=== PATIENT | male | born 1995 | race Two or more races ===

== ENCOUNTER 2017-04-03 17:56 | Inpatient (IN) | payer MEDICAID ==
[~2017-04-03] VITALS: Ht 180.3 cm; Wt 77.1 kg
[~2017-04-03 17:56] MED LIST: CEPHALEXIN500 MG PO; NAPROXEN375 MG PO; NKM
[2017-04-03 19:07] LABS: BASOPHILS % (AUTO) 0.5 % (0.0-2.0); EOSINOPHILS % (AUTO) 0.2 % (0.0-3.0); LYMPHOCYTES % (AUTO) 7.4 % (20.0-45.0); MEAN CORPUSCULAR HEMOGLOBIN 31.5 PG (27.0-31.0); MEAN CORPUSCULAR HGB CONC 35.5 G/DL (32.0-36.0); MEAN CORPUSCULAR VOLUME 89 FL (80-99); MEAN PLATELET VOLUME 8.1 FL (6.5-10.1); PLATELET COUNT 176 K/UL (150-450); RED BLOOD COUNT 5.04 M/UL (4.70-6.10); RED CELL DISTRIBUTION WIDTH 10.8 % (11.6-14.8); WHITE BLOOD COUNT 17.2 K/UL (4.8-10.8)
[2017-04-03 19:10] LABS: APPEARANCE,URINE CLEAR; KETONES,URINE NEGATIVE (NEGATIVE); LEUKOCYTE ESTERASE ,URINE 1+ (NEGATIVE); NITRITE,URINE NEGATIVE (NEGATIVE); PH,URINE 7 (4.5-8.0); PROTEIN,URINE 1+ (NEGATIVE); UROBILINOGEN,URINE 4 MG/DL (0.0-1.0)
[2017-04-03 19:19] LABS: INR 1.1 (0.9-1.1)
[2017-04-03 19:21] LABS: ALANINE AMINOTRANSFERASE 15 U/L (3-41); ALBUMIN/GLOBULIN RATIO 1.5 (1.0-2.7); ANION GAP 10 (5-15); ASPARTATE AMINO TRANSFERASE 17 U/L (5-40); CALCIUM 9.3 mg/dL (8.6-10.2); CARBON DIOXIDE 28 mEQ/L (20-30); CHLORIDE 99 mEQ/L (98-107); CREATININE 0.9 mg/dL (0.7-1.2); GLOMERULAR FILTRATION RATE > 60 mL/min (>60); HEMOLYSIS 7; LIPASE 15 U/L (< 60); POTASSIUM 4.3 mEQ/L (3.4-4.9); SODIUM 137 mEQ/L (135-145); TOTAL PROTEIN 7.6 g/dL (6.6-8.7)
[2017-04-03 19:22] VITALS: BP 129/76
[2017-04-03 19:29] LABS: BACTERIA,URINE OCCASIONAL /HPF; MUCUS,URINE MANY /LPF (NONE/OCC); RBC,URINE 0-2 /HPF (0 - 0); SQUAMOUS EPITHELIAL CELL,UR OCCASIONAL /LPF (NONE/OCC); WBC,URINE 0-2 /HPF (0 - 0)
[2017-04-03 19:40] LABS: BILIRUBIN,DIRECT 0.3 mg/dL (0.1-0.3)
--- NOTE | 2017-04-03 21:20 | Emergency Room Report ---
History of Present Illness General Chief Complaint: Abdominal Pain Source: Patient (SOURAV SUERO) Present Illness HPI The patient is a 21-year-old male who denies any medical history presenting for abdominal pain. He states that he began to develop pain to the entire abdomen yesterday for no known reason. Described as an 8/10 dull ache. He states that this was then followed by nausea, vomiting, and subjective fever. Pain is worse with movement. He denies any known sick contacts recent travel. He denies any other symptoms including diarrhea, constipation, CP, SOB, rash (SOURAV SUERO) Allergies: Coded Allergies: No Known Allergies (Unverified , 07/17/12) Patient History Past Medical History: see triage record Pertinent Family History: none Reviewed Nursing Documentation: PMH: Agreed, PSxH: Agreed (SOURAV SUERO) Nursing Documentation-PMH Hx Cardiac Problems: No Hx Asthma: Yes - during childhood Hx Cancer: No Hx Gastrointestinal Problems: No Hx Neurological Problems: No (SOURAV SUERO) Review of Systems All Other Systems: negative except mentioned in HPI (SOURAV SUERO) Physical Exam Vital Signs Date Time Temp Pulse Resp B/P (MAP) Pulse Ox O2 Delivery O2 Flow Rate FiO2 04/03/17 18:05 98.4 77 20 129/76 99 Room Air Sp02 EP Interpretation: reviewed, normal General Appearance: alert, GCS 15, non-toxic, mild distress Head: normocephalic, atraumatic Eyes: bilateral eye normal inspection, bilateral eye PERRL ENT: hearing grossly normal, normal pharynx, no angioedema, normal voice Respiratory: chest non-tender, lungs clear, normal breath sounds, speaking full sentences Cardiovascular #1: regular rate, rhythm, no edema Gastrointestinal: normal bowel sounds, no mass, no guarding, rebound - RLQ, tenderness - diffuse. Primarily RLQ Rectal: deferred Musculoskeletal: back normal, gait/station normal, normal range of motion Neurologic: alert, oriented x3, responsive, motor strength/tone normal, sensory intact, speech normal Psychiatric: judgement/insight normal, memory normal, mood/affect normal, no suicidal/homicidal ideation Skin: normal color, no rash, warm/dry, well hydrated Lymphatic: no adenopathy (SOURAV SUERO) Medical Decision Making [place] Attestation Dr. Kwan is my supervising physician. Patient management was discussed with my supervising physician (SOURAV SUERO) Medicare Attestation Patient's care evaluated by myself as well do agree with the history examined findings patient's CAT scan does report acute appendicitis, phone call was made to Dr. robles from general surgery patient started on IV antibiotics and requires admission for further specialty care (DARRON KWAN D.O.) Diagnostic Impression: Primary Impression: Acute appendicitis Qualified Codes: K35.89 - Other acute appendicitis ER Course The patient is a 21-year-old male presenting for abdominal pain Differential diagnoses considered include but not limited to gastritis, pancreatitis, appendicitis, UTI, among others PE: afebrile. Mild distress Abd: TTP diffusely with localized TTP over the RLQ. Non distended. No guarding. Labs significant for leukocytosis of 17.1 CT abd/pelvis shows appendicitis Pt is given IV fluids, morphine, and zosyn. He is placed on NPO. Dr Kwan has spoken with Dr. Rivera for admission. Dr. Robles has arrived and has evaluated patient. He will be taking the patient to the OR for appendectomy. Laboratory Tests Test 04/03/17 18:07 04/03/17 18:50 Urine Color Brown Urine Appearance Clear Urine pH 7 (4.5-8.0) Urine Specific [place] 1.010 (1.005-1.035) Urine Protein 1+ (NEGATIVE) H Urine Glucose (UA) 1+ (NEGATIVE) H Urine Ketones Negative (NEGATIVE) Urine Occult Blood Negative (NEGATIVE) Urine Nitrite Negative (NEGATIVE) Urine Bilirubin Negative (NEGATIVE) Urine Urobilinogen 4 MG/DL (0.0-1.0) H Urine Leukocyte Esterase 1+ (NEGATIVE) H Urine RBC 0-2 /HPF (0 - 0) H Urine WBC 0-2 /HPF (0 - 0) Urine Squamous Epithelial Cells Occasional /LPF Urine Bacteria Occasional /HPF (NONE) Urine Mucus Many /LPF (NONE/OCC) H White Blood Count 17.2 K/UL (4.8-10.8) H Red Blood Count 5.04 M/UL (4.70-6.10) Hemoglobin 15.9 G/DL (14.2-18.0) Hematocrit 44.8 % (42.0-52.0) Mean Corpuscular Volume 89 FL (80-99) Mean Corpuscular Hemoglobin 31.5 PG (27.0-31.0) H Mean Corpuscular Hemoglobin Concent 35.5 G/DL (32.0-36.0) Red Cell Distribution Width 10.8 % (11.6-14.8) L Platelet Count 176 K/UL (150-450) Mean Platelet Volume 8.1 FL (6.5-10.1) Neutrophils (%) (Auto) 82.0 % (45.0-75.0) H Lymphocytes (%) (Auto) 7.4 % (20.0-45.0) L Monocytes (%) (Auto) 10.0 % (1.0-10.0) Eosinophils (%) (Auto) 0.2 % (0.0-3.0) Basophils (%) (Auto) 0.5 % (0.0-2.0) Prothrombin Time 12.0 SEC (9.30-11.50) H Prothrombin Time INR 1.1 (0.9-1.1) PTT 30 SEC (23-33) Sodium Level 137 mEQ/L (135-145) Potassium Level 4.3 mEQ/L (3.4-4.9) Chloride Level 99 mEQ/L (98-107) Carbon Dioxide Level 28 mEQ/L (20-30) Anion Gap 10 (5-15) Blood Urea Nitrogen 7 mg/dL (7-23) Creatinine 0.9 mg/dL (0.7-1.2) Estimate Glomerular Filtration Rate > 60 mL/min (>60) Glucose Level 139 mg/dL (74-106) H Calcium Level 9.3 mg/dL (8.6-10.2) Total Bilirubin 2.3 mg/dL (0.0-1.2) H Direct Bilirubin 0.3 mg/dL (0.1-0.3) Aspartate Amino Transferase (AST) 17 U/L (5-40) Alanine Aminotransferase (ALT) 15 U/L (3-41) Alkaline Phosphatase 80 U/L (40-129) Total Protein 7.6 g/dL (6.6-8.7) Albumin 4.6 g/dL (3.5-5.2) Globulin 3.0 g/dL Albumin/Globulin Ratio 1.5 (1.0-2.7) Lipase 15 U/L (< 60) Lab Results Impression leukocytosis (SOURAV SUERO) CT/MRI/US Diagnostic Results CT/MRI/US Diagnostic Results : Imaging Test Ordered: CT abd/pelvis Impression Acute appendicitis (SOURAV SUERO) Last Vital Signs Date Time Temp Pulse Resp B/P (MAP) Pulse Ox O2 Delivery O2 Flow Rate FiO2 04/03/17 19:22 98.4 64 20 129/76 99 Room Air Status: improved (SOURAV SUERO) Disposition: ADMITTED INPATIENT Condition: Stable SOURAV SUERO Apr 03, 2017 21:19 DARRON KWAN D.O. Apr 03, 2017 21:24
[2017-04-03] MEDS ORDERED: Morphine Sulfate 4mg/ml Inj IVP ONE (21:30)
[2017-04-03] MEDS ORDERED: Piperacillin/Tazobactam 3.375 GM in NS 110 ML IVPB ONE (21:30)
[2017-04-03] MEDS ORDERED: Zosyn 3.375gm inj ONE (21:31)
[2017-04-03 21:45] VITALS: BP 134/77
[2017-04-03] MEDS ORDERED: Bupivacaine 0.25% Inj 30ml INJ ONE (22:39)
[2017-04-03] MEDS ORDERED: Bupivacaine w/Epi 0.5% 30ml Vial INJ ONE (22:39)
--- NOTE | 2017-04-03 22:47 | Infectious Diseases Prog Note ---
Assessment/Plan Problems: (1) Acute appendicitis Assessment & Plan: will start zosyn empiric treatment pending culture results , needs surgical intervention, surgery is following (2) UTI (urinary tract infection) Assessment & Plan: already on zosyn , will send urine for culture (3) Sepsis Assessment & Plan: due to the above, continue zosyn , will send blood culture Subjective Allergies: Coded Allergies: No Known Allergies (Unverified , 07/17/12) Objective Vital Signs Last 24 Hour Vital Signs Date Time Temp Pulse Resp B/P (MAP) Pulse Ox O2 Delivery O2 Flow Rate FiO2 04/03/17 19:22 98.4 64 20 129/76 99 Room Air 04/03/17 18:05 98.4 77 20 129/76 99 Room Air Height (Feet): 5 Height (Inches): 11.00 Weight (Pounds): 170 Laboratory Tests Test 04/03/17 18:07 04/03/17 18:50 Urine Color Brown Urine Appearance Clear Urine pH 7 (4.5-8.0) Urine Specific [place] 1.010 (1.005-1.035) Urine Protein 1+ (NEGATIVE) H Urine Glucose (UA) 1+ (NEGATIVE) H Urine Ketones Negative (NEGATIVE) Urine Occult Blood Negative (NEGATIVE) Urine Nitrite Negative (NEGATIVE) Urine Bilirubin Negative (NEGATIVE) Urine Urobilinogen 4 MG/DL (0.0-1.0) H Urine Leukocyte Esterase 1+ (NEGATIVE) H Urine RBC 0-2 /HPF (0 - 0) H Urine WBC 0-2 /HPF (0 - 0) Urine Squamous Epithelial Cells Occasional /LPF Urine Bacteria Occasional /HPF (NONE) Urine Mucus Many /LPF (NONE/OCC) H White Blood Count 17.2 K/UL (4.8-10.8) H Red Blood Count 5.04 M/UL (4.70-6.10) Hemoglobin 15.9 G/DL (14.2-18.0) Hematocrit 44.8 % (42.0-52.0) Mean Corpuscular Volume 89 FL (80-99) Mean Corpuscular Hemoglobin 31.5 PG (27.0-31.0) H Mean Corpuscular Hemoglobin Concent 35.5 G/DL (32.0-36.0) Red Cell Distribution Width 10.8 % (11.6-14.8) L Platelet Count 176 K/UL (150-450) Mean Platelet Volume 8.1 FL (6.5-10.1) Neutrophils (%) (Auto) 82.0 % (45.0-75.0) H Lymphocytes (%) (Auto) 7.4 % (20.0-45.0) L Monocytes (%) (Auto) 10.0 % (1.0-10.0) Eosinophils (%) (Auto) 0.2 % (0.0-3.0) Basophils (%) (Auto) 0.5 % (0.0-2.0) Prothrombin Time 12.0 SEC (9.30-11.50) H Prothromb Time International Ratio 1.1 (0.9-1.1) Activated Partial Thromboplast Time 30 SEC (23-33) Sodium Level 137 mEQ/L (135-145) Potassium Level 4.3 mEQ/L (3.4-4.9) Chloride Level 99 mEQ/L (98-107) Carbon Dioxide Level 28 mEQ/L (20-30) Anion Gap 10 (5-15) Blood Urea Nitrogen 7 mg/dL (7-23) Creatinine 0.9 mg/dL (0.7-1.2) Estimat Glomerular Filtration Rate > 60 mL/min (>60) Glucose Level 139 mg/dL (74-106) H Calcium Level 9.3 mg/dL (8.6-10.2) Total Bilirubin 2.3 mg/dL (0.0-1.2) H Direct Bilirubin 0.3 mg/dL (0.1-0.3) Aspartate Amino Transf (AST/SGOT) 17 U/L (5-40) Alanine Aminotransferase (ALT/SGPT) 15 U/L (3-41) Alkaline Phosphatase 80 U/L (40-129) Total Protein 7.6 g/dL (6.6-8.7) Albumin 4.6 g/dL (3.5-5.2) Globulin 3.0 g/dL Albumin/Globulin Ratio 1.5 (1.0-2.7) Lipase 15 U/L (< 60) Gordy Mane M.D. Apr 03, 2017 22:47
--- NOTE | 2017-04-03 22:49 | Pre-Procedure Note/Attestation ---
Pre-Procedure Note/Attestation Complete Prior to Procedure Procedure Narrative: laparoscopic vs open appendectomy possible exploratory laparotomy Indications for Procedure Pre-Operative Diagnosis: acute appendicitis Attestation I attest that I discussed the nature of the procedure; its benefits; risks and complications; and alternatives (and the risks and benefits of such alternatives ), prior to the procedure, with the patient (or the patient's legal volunteer patient representative). I attest that, if there was a reasonable possibility of needing a blood transfusion, the patient (or the patient's legal volunteer patient representative) was given the [facility] standardized written summary, pursuant to the Alejandro Konterra Blood Safety Act ([place] Health and Safety Code # 1645, as amended). I attest that I re-evaluated the patient just prior to the surgery and that there has been no change in the patient's H&P, except as documented below:none LEÓN HERNANDEZ Apr 03, 2017 22:49
[2017-04-03 22:50] VITALS: BP 132/76
[2017-04-03] MEDS ORDERED: LR 1000ml 1,000 ML IVLG SCH (22:51)
--- NOTE | 2017-04-03 22:51 | Anethesia Preoperative Eval ---
Anesthesia Pre-op PMH/ROS General Date of Evaluation: Apr 03, 2017 Time of Evaluation: 23:01 Anesthesiologist: Joanie ASA Score: ASA 1 Mallampati Score Class I : Soft palate, uvula, fauces, pillars visible Class II: Soft palate, uvula, fauces visible Class III: Soft palate, base of uvula visible Class IV: Only hard plate visible Mallampati Classification: Class I Surgeon: Facundo Diagnosis: ABD pain Surgical Procedure: Laparorscopic Appendectomy Anesthesia History: none Family History: no anesthesia problems Allergies: Coded Allergies: No Known Allergies (Unverified , 07/17/12) Medications: see eMAR Past Medical History Pulmonary: Reports: asthma Anesthesia Pre-op Phys. Exam Physician Exam Last Vital Signs Date Time Temp Pulse Resp B/P (MAP) Pulse Ox O2 Delivery O2 Flow Rate FiO2 04/03/17 19:22 98.4 64 20 129/76 99 Room Air Constitutional: NAD Neurologic: CN 2-12 intact Cardiovascular: RRR Respiratory: CTA Gastrointestinal: S/NT/ND Airway Exam Mallampati Score: Class I MO: full ROM: full Teeth: intact Anesthesia Pre-op A/P Labs Hematology Test 04/03/17 18:50 White Blood Count 17.2 K/UL (4.8-10.8) H Red Blood Count 5.04 M/UL (4.70-6.10) Hemoglobin 15.9 G/DL (14.2-18.0) Hematocrit 44.8 % (42.0-52.0) Mean Corpuscular Volume 89 FL (80-99) Mean Corpuscular Hemoglobin 31.5 PG (27.0-31.0) H Mean Corpuscular Hemoglobin Concent 35.5 G/DL (32.0-36.0) Red Cell Distribution Width 10.8 % (11.6-14.8) L Platelet Count 176 K/UL (150-450) Mean Platelet Volume 8.1 FL (6.5-10.1) Neutrophils (%) (Auto) 82.0 % (45.0-75.0) H Lymphocytes (%) (Auto) 7.4 % (20.0-45.0) L Monocytes (%) (Auto) 10.0 % (1.0-10.0) Eosinophils (%) (Auto) 0.2 % (0.0-3.0) Basophils (%) (Auto) 0.5 % (0.0-2.0) Coagulation Test 04/03/17 18:50 Prothrombin Time 12.0 SEC (9.30-11.50) H Prothromb Time International Ratio 1.1 (0.9-1.1) Activated Partial Thromboplast Time 30 SEC (23-33) Chemistry Test 04/03/17 18:50 Sodium Level 137 mEQ/L (135-145) Potassium Level 4.3 mEQ/L (3.4-4.9) Chloride Level 99 mEQ/L (98-107) Carbon Dioxide Level 28 mEQ/L (20-30) Anion Gap 10 (5-15) Blood Urea Nitrogen 7 mg/dL (7-23) Creatinine 0.9 mg/dL (0.7-1.2) Estimat Glomerular Filtration Rate > 60 mL/min (>60) Glucose Level 139 mg/dL (74-106) H Calcium Level 9.3 mg/dL (8.6-10.2) Total Bilirubin 2.3 mg/dL (0.0-1.2) H Direct Bilirubin 0.3 mg/dL (0.1-0.3) Aspartate Amino Transf (AST/SGOT) 17 U/L (5-40) Alanine Aminotransferase (ALT/SGPT) 15 U/L (3-41) Alkaline Phosphatase 80 U/L (40-129) Total Protein 7.6 g/dL (6.6-8.7) Albumin 4.6 g/dL (3.5-5.2) Globulin 3.0 g/dL Albumin/Globulin Ratio 1.5 (1.0-2.7) Lipase 15 U/L (< 60) Risk Assessment & Plan Assessment: ASA 1 Plan: GA, BIS, Glidescope Status Change Before Surgery: No Pre-Antibiotics Dru Gramns Ancef IV Given Within 1 Hr of Incision: No Time Given: 11:16 Sourav Nair MD Apr 03, 2017 22:51
[2017-04-03] MEDS ORDERED: Norco 7.5mg/325mg tab ORAL PRN (23:00)
[2017-04-03] MEDS ORDERED: Atropine Inj 1mg/10ml Syr IV PRN (23:00)
[2017-04-03] MEDS ORDERED: Metoclopramide 10mg/2ml Inj IVP PRN (23:00)
[2017-04-03] MEDS ORDERED: fentaNYL 100 mcg/2 mL IV PRN (23:00)
[2017-04-03] MEDS ORDERED: DiphenhydrAMINE 50mg/ml Inj IVP PRN (23:00)
[2017-04-03] MEDS ORDERED: Hydromorphone 0.5mg/0.5ml inj IVP PRN (23:00)
[2017-04-03] MEDS ORDERED: oxyCODONE HCL/Acetaminophen 5/325mg ORAL PRN (23:00)
[2017-04-03] MEDS ORDERED: Norco 5mg/325mg tab ORAL PRN (23:00)
[2017-04-03] MEDS ORDERED: Midazolam 2mg/2ml Inj IVP PRN (23:00)
[2017-04-03] MEDS ORDERED: LORazepam Inj 2mg/ml 1ml IV PRN (23:00)
[2017-04-03] MEDS ORDERED: Ketorolac 60mg Inj IV PRN (23:00)
[2017-04-03] MEDS ORDERED: Meperidine 25mg/0.5ml Inj (FOR RIGORS ONLY) IV PRN (23:00)
[2017-04-03] MEDS ORDERED: Ketorolac 30mg Inj IV PRN (23:00)
--- NOTE | 2017-04-03 23:40 | Immediate Post-Op Evaluation ---
Immediate Post-Op Evalulation Immediate Post-Op Evalulation Procedure: Laparoscopic Appendectomy Date of Evaluation: Apr 03, 2017 Time of Evaluation: 00:24 IV Fluids: 500 LR Blood Products: 0 Estimated Blood Loss: 10 Urinary Output: 0 Blood Pressure Systolic: 146 Blood Pressure Diastolic: 89 Pulse Rate: 89 Respiratory Rate: 16 O2 Sat by Pulse Oximetry: 100 Temperature (Fahrenheit): 98.9 Pain Score (1-10): 2 Nausea: No Vomiting: No Complications 0 Patient Status: awake, reacts, patent, extubated, none Hydration Status: adequate Dru Grams Ancef IV Given Within 1 Hr of Incision: Yes Time Given: 23:16 Sourav Nair MD Apr 03, 2017 23:40
--- NOTE | 2017-04-03 23:41 | 48 Hour Post Anesthesia Eval ---
Post Anesthesia Evaluation Procedure: Laparoscopic Appendectomy Date of Evaluation: Apr 03, 2017 Time of Evaluation: 02:41 Blood Pressure Systolic: 123 0: 74 Pulse Rate: 81 Respiratory Rate: 18 Temperature (Fahrenheit): 98.6 O2 Sat by Pulse Oximetry: 100 Airway: patent Nausea: No Vomiting: No Pain Intensity: 2 Hydration Status: adequate Cardiopulmonary Status: Stable Mental Status/LOC: patient returned to baseline Follow-up Care/Observations: 0 Post-Anesthesia Complications: 0 Follow-up care needed: N/A Sourav Nair MD Apr 03, 2017 23:41
[2017-04-04] VITALS (12 sets, daily range): BP systolic 109–146; BP diastolic 57–89
--- NOTE | 2017-04-04 00:05 | Brief Operative Note ---
Immediate Post Operative Note Operative Note Pre-op Diagnosis: acute appendicitis Procedure: laparroscopic appendecdtomy Post-op Diagnosis: same non perforated Surgeon: margaret Manager Wound Care: none Anesthesiologist: Joanie Anesthesia: general, local Specimen: yes Complications: none Condition: stable Fluids: per anesthesia Estimated Blood Loss: minimal Drains: none Implant(s) used?: No LEÓN HERNANDEZ Apr 04, 2017 00:05
[2017-04-04] MEDS ORDERED: HYDROmorphone 1mg/ml Carpuject IVP PRN (00:15)
[2017-04-04] MEDS ORDERED: Hydromorphone 0.5mg/0.5ml inj IVP PRN (00:15)
[2017-04-04] MEDS: LR 1000ml 1,000 ML IV SCH ×2 (01:21→15:00)
[2017-04-04] MEDS ORDERED: ceFAZolin sod 1 GM in D5W 55 ML IV SCH (06:00)
[2017-04-04] MEDS ORDERED: Zosyn 3.375gm inj ONE (06:06)
[2017-04-04 06:25] LABS: MEAN CORPUSCULAR HEMOGLOBIN 30.7 PG (27.0-31.0); MEAN CORPUSCULAR HGB CONC 34.1 G/DL (32.0-36.0); MEAN CORPUSCULAR VOLUME 90 FL (80-99); MEAN PLATELET VOLUME 8.1 FL (6.5-10.1); PLATELET COUNT 183 K/UL (150-450); RED BLOOD COUNT 5.14 M/UL (4.70-6.10); WHITE BLOOD COUNT 14.7 K/UL (4.8-10.8)
[2017-04-04 06:41] LABS: ANION GAP 12 (5-15); CALCIUM 8.9 mg/dL (8.6-10.2); CARBON DIOXIDE 27 mEQ/L (20-30); CHLORIDE 97 mEQ/L (98-107); CREATININE 1.1 mg/dL (0.7-1.2); GLOMERULAR FILTRATION RATE > 60 mL/min (>60); HEMOLYSIS 0; POTASSIUM 4.3 mEQ/L (3.4-4.9); SODIUM 136 mEQ/L (135-145)
[2017-04-04] MEDS: Piperacillin/Tazobactam 3.375 GM in NS 110 ML IVPB SCH ×3 (06:47→22:02)
--- NOTE | 2017-04-04 07:45 | History and Physical Report ---
DATE OF ADMISSION: 04/03/2017 ADMITTING DIAGNOSIS: Acute appendicitis. Present History: This 21-year-old gentleman, who was admitted to [facility] [place], noted abdominal pain since yesterday that has been increasing. It is focused in the right lower quadrant. Described as an ache. The patient has had nausea and vomiting. Low-grade fevers. No other contributing factors. No diarrhea or constipation. No shortness of breath. PAST MEDICAL HISTORY: Unremarkable. PAST SURGERY HISTORY: He had a repair of an injury to his wrists. MEDICATIONS: None regularly. Review Of Systems: Pulmonary: No history of asthma, bronchitis, emphysema, pneumonia, or tuberculosis. Cardiac: No history of chest pains, palpitations, irregular heart beat, murmurs, or angina. Gastrointestinal: No history of peptic ulcer disease, reflux esophagitis, colitis, hepatitis, jaundice, or pancreatitis. Genitourinary: No history of dysuria, hematuria, renal failure, or kidney stones. Musculoskeletal: Previous fracture of the left wrist. PHYSICAL EXAMINATION: General: Reveals well-developed, pleasant gentleman, in mild distress. Alert and cooperative. Vital Signs: His temperature is 98.4, pulse 77, respirations 20, and blood pressure 129/78. HEENT: Normocephalic. Pupils are round and reactive to light. There is no scleral icterus. His throat is clear. NECK: Supple. LUNGS: Clear bilaterally. HEART: Normal sinus rhythm. Abdomen: Soft. There is 2+ tenderness in the right lower quadrant. Focusing at McBurney's point with referred pain and mild rebound. GENITALIA: Normal male. Laboratory Data: Show white blood count of 17.2, hemoglobin of 15.9, hematocrit 44.8, and platelet count is 178. The chemistry, sodium is 137, potassium 4.2, chloride 99, bicarbonate 28, BUN is 7, creatinine 0.9, and glucose 139. Total bilirubin 2.3 and direct bilirubin is 0.3. AST of 17, ALT of 18, and alkaline phosphatase of 18. Lipase is 15. Coags, PT of 12.8, INR of 1.1, and PTT of 30. CT scan written by the radiologist shows appendicitis. Inflamed appendix measured about 1 cm. Inflammatory changes within the pelvis. No organized drainable collection. IMPRESSION: Acute appendicitis. Plan: The patient is admitted. He is given IV antibiotics. He will undergo laparoscopic appendectomy possible open. Procedures, risks, benefits, and complications including bleeding, infection, possible need to convert to an open procedure, and possible need for exploratory laparotomy were discussed in detail. The patient understands above and agrees to proceed. [place] M.D. DR: TOMMY JOB#: [id number] CC:
[2017-04-04] MEDS: Heparin 5000 units/ml inj SUBQ SCH ×2 (08:28→22:04)
--- NOTE | 2017-04-04 08:30 | Operative Note - Dictated ---
DATE OF OPERATION: 04/03/2017 SURGEON: [place] M.D. ANESTHESIOLOGIST: Sourav Nair M.D. PREOPERATIVE DIAGNOSIS: Acute appendicitis. POSTOPERATIVE DIAGNOSIS: Acute appendicitis. PROCEDURE: Laparoscopic appendectomy. Indications: The patient is a 21-year-old gentleman seen and requested by emergency room physician, who presents with a one-day history of nausea, vomiting, and abdominal pain, now localized in right lower quadrant. A CT scan confirmed the presence of acute appendicitis without evidence of perforation. The patient also had a white count of 18,000. Indications for surgery, risks, benefits, and complications include bleeding, infection, anesthetic complications, possible need to convert to an open procedure, possible need for exploratory laparotomy and wider resection were discussed in detail. The patient understands and agrees to proceed. Operative Findings: The patient had acute and obviously inflamed appendix. There was a fair amount of murky fluid in the right gutter, but there did not appear to be any actual perforation of the appendix per se, removed in the following manner. The liver, gallbladder, stomach, small bowel, and colon were grossly normal. Procedure In Detail: The patient was identified in the preoperative holding area, brought into the operating room just under general anesthesia and endotracheal intubation. The Perez catheter was placed. His abdomen was shaved and prepped with ChloraPrep and draped in usual sterile manner. Time-out performed confirming the patient's position, procedure, anesthesia, antibiotic, and allergy status. An infraumbilical incision was made through which we passed a Veress needle, checked with irrigation, aspiration, water drip test, connected to a CO2 insufflator, inflated to 15 mmHg taking 4 liters to achieve this. The Veress needle was removed. The aperture was enlarged. A 5 mm trocar was placed in the abdominal cavity through which we passed a 30-degree laparoscope. The area immediately subjacent carefully was examined to make sure there was no other inadvertent bowel or blood vessel injury, none seen. The entire abdomen was cruz-scoped with the above-noted findings. Under laparoscopic vision, a second 5 mm trocar was placed in the right upper quadrant and a 10 x 12 mm trocar was placed in the suprapubic position under laparoscopic vision. The cecum was carefully mobilized. The White line of [place] was carefully divided and the cecum reflected medially. The appendix was identified and grasped with a grasper, careful dissection down to the base was created in the mesoappendix. MARCO A anastomosis was passed across the mesoappendix and fired. Another stapler was then passed across the base of the appendix at the junction with the cecum and fired. The specimen was then placed into Endopouch bag and delivered through the suprapubic incision and sent to pathology for examination. At this point, the right lower quadrant was copiously irrigated with warm normal saline and carefully examined to make sure there is no bleeding acutely stabilized, checked. There is no evidence of any bleeding whatsoever. The scope was placed in the upper trocar and the abdomen was once again cruz-scoped to make sure there is no inadvertent bowel or blood vessel injury, none was seen. The trocars were removed under laparoscopic vision. Pneumoperitoneum released. The suprapubic incision was closed with 0 Vicryl on the fascia and all skin incisions closed with 4-0 Vicryl reinforced with Steri-Strips and dry sterile gauze dressing. Blood loss at the time of procedure was less than 2 mL. The patient tolerated the procedure well. [place] M.D. DR: TOMMY JOB#: [id number] CC:
--- NOTE | 2017-04-04 08:30 | Consultation ---
History of Present Illness General Date patient seen: Apr 04, 2017 Chief Complaint: Abdominal Pain Present Illness Allergies: Coded Allergies: No Known Allergies (Unverified , 07/17/12) Medication History Scheduled Cephalexin* (Keflex*), 500 MG PO Q6H Naproxen* (Naprosyn*), 375 MG PO BID No Known Medications* (NKM - No Known Medications*), 0 ., (Reported) Patient History Healthcare decision maker Resuscitation status Full Code Advanced Directive on File No Physical Exam Last 24 Hour Vital Signs Date Time Temp Pulse Resp B/P (MAP) Pulse Ox O2 Delivery O2 Flow Rate FiO2 04/04/17 04:00 98.4 75 16 109/66 100 Nasal Cannula 2.0 04/04/17 02:15 99.7 86 18 124/68 98 Nasal Cannula 2.0 04/04/17 01:30 99.2 04/04/17 01:15 100.6 90 18 125/69 98 Nasal Cannula 2.0 04/04/17 00:55 99.7 82 25 133/70 100 Nasal Cannula 3.0 04/04/17 00:50 81 20 131/72 100 Nasal Cannula 3.0 04/04/17 00:40 85 24 134/72 100 Nasal Cannula 3.0 04/04/17 00:30 81 16 137/75 100 Simple Mask 6.0 04/04/17 00:23 82 25 142/76 100 Simple Mask 6.0 04/04/17 00:18 82 27 144/77 100 Simple Mask 6.0 04/04/17 00:14 81 18 100 04/04/17 00:13 100.7 87 34 146/89 98 Simple Mask 6.0 04/04/17 00:13 89 16 100 04/03/17 22:55 98.4 70 18 132/76 99 Room Air 04/03/17 22:50 98.4 70 18 132/76 99 Room Air 04/03/17 21:45 98.4 66 18 134/77 99 Room Air 04/03/17 19:22 98.4 64 20 129/76 99 Room Air 04/03/17 18:05 98.4 77 20 129/76 99 Room Air Laboratory Tests Test 04/03/17 18:07 04/03/17 18:50 04/04/17 05:35 Urine Color Brown Urine Appearance Clear Urine pH 7 (4.5-8.0) Urine Specific [place] 1.010 (1.005-1.035) Urine Protein 1+ (NEGATIVE) H Urine Glucose (UA) 1+ (NEGATIVE) H Urine Ketones Negative (NEGATIVE) Urine Occult Blood Negative (NEGATIVE) Urine Nitrite Negative (NEGATIVE) Urine Bilirubin Negative (NEGATIVE) Urine Urobilinogen 4 MG/DL (0.0-1.0) H Urine Leukocyte Esterase 1+ (NEGATIVE) H Urine RBC 0-2 /HPF (0 - 0) H Urine WBC 0-2 /HPF (0 - 0) Urine Squamous Epithelial Cells Occasional /LPF Urine Bacteria Occasional /HPF (NONE) Urine Mucus Many /LPF (NONE/OCC) H White Blood Count 17.2 K/UL (4.8-10.8) H 14.7 K/UL (4.8-10.8) H Red Blood Count 5.04 M/UL (4.70-6.10) 5.14 M/UL (4.70-6.10) Hemoglobin 15.9 G/DL (14.2-18.0) 15.8 G/DL (14.2-18.0) Hematocrit 44.8 % (42.0-52.0) 46.3 % (42.0-52.0) Mean Corpuscular Volume 89 FL (80-99) 90 FL (80-99) Mean Corpuscular Hemoglobin 31.5 PG (27.0-31.0) H 30.7 PG (27.0-31.0) Mean Corpuscular Hemoglobin Concent 35.5 G/DL (32.0-36.0) 34.1 G/DL (32.0-36.0) Red Cell Distribution Width 10.8 % (11.6-14.8) L 11.0 % (11.6-14.8) L Platelet Count 176 K/UL (150-450) 183 K/UL (150-450) Mean Platelet Volume 8.1 FL (6.5-10.1) 8.1 FL (6.5-10.1) Neutrophils (%) (Auto) 82.0 % (45.0-75.0) H % (45.0-75.0) Lymphocytes (%) (Auto) 7.4 % (20.0-45.0) L % (20.0-45.0) Monocytes (%) (Auto) 10.0 % (1.0-10.0) % (1.0-10.0) Eosinophils (%) (Auto) 0.2 % (0.0-3.0) % (0.0-3.0) Basophils (%) (Auto) 0.5 % (0.0-2.0) % (0.0-2.0) Prothrombin Time 12.0 SEC (9.30-11.50) H Prothromb Time International Ratio 1.1 (0.9-1.1) Activated Partial Thromboplast Time 30 SEC (23-33) Sodium Level 137 mEQ/L (135-145) 136 mEQ/L (135-145) Potassium Level 4.3 mEQ/L (3.4-4.9) 4.3 mEQ/L (3.4-4.9) Chloride Level 99 mEQ/L (98-107) 97 mEQ/L (98-107) L Carbon Dioxide Level 28 mEQ/L (20-30) 27 mEQ/L (20-30) Anion Gap 10 (5-15) 12 (5-15) Blood Urea Nitrogen 7 mg/dL (7-23) 9 mg/dL (7-23) Creatinine 0.9 mg/dL (0.7-1.2) 1.1 mg/dL (0.7-1.2) Estimat Glomerular Filtration Rate > 60 mL/min (>60) > 60 mL/min (>60) Glucose Level 139 mg/dL (74-106) H 167 mg/dL (74-106) H Calcium Level 9.3 mg/dL (8.6-10.2) 8.9 mg/dL (8.6-10.2) Total Bilirubin 2.3 mg/dL (0.0-1.2) H Direct Bilirubin 0.3 mg/dL (0.1-0.3) Aspartate Amino Transf (AST/SGOT) 17 U/L (5-40) Alanine Aminotransferase (ALT/SGPT) 15 U/L (3-41) Alkaline Phosphatase 80 U/L (40-129) Total Protein 7.6 g/dL (6.6-8.7) Albumin 4.6 g/dL (3.5-5.2) Globulin 3.0 g/dL Albumin/Globulin Ratio 1.5 (1.0-2.7) Lipase 15 U/L (< 60) Height (Feet): 5 Height (Inches): 11.00 Weight (Pounds): 170 Medications Current Medications Medications (Trade) Dose Ordered Sig/Edwina Route PRN Reason Start Time Stop Time Status Last Admin Dose Admin Cefazolin Sodium 1 gm/Dextrose 55 ml @ 110 mls/hr EVERY 8 HOURS IV 04/04/17 06:00 04/04/17 14:29 UNV Heparin Sodium (Porcine) (Heparin 5000 units/ml) 5,000 units EVERY 12 HOURS SUBQ 04/04/17 09:00 05/04/17 08:59 Hydromorphone HCl (Dilaudid) 0.5 mg Q3H PRN IVP Pain Score 1-3 04/04/17 00:15 04/11/17 00:14 Hydromorphone HCl (Dilaudid) 1 mg Q3H PRN IVP pain score 4-6 04/04/17 00:15 04/11/17 00:14 Hydromorphone HCl (Dilaudid) 2 mg Q3H PRN IVP pain score 7-10 04/04/17 00:15 04/11/17 00:14 Lactated Ringer's 1,000 ml @ 75 mls/hr [id number] IV 04/04/17 01:00 05/04/17 00:59 04/04/17 01:21 Ondansetron HCl (Zofran) 4 mg Q6H PRN IVP Nausea & Vomiting 04/04/17 00:15 05/04/17 00:14 Piperacillin Sod/ Tazobactam Sod 3.375 gm/Sodium Chloride 110 ml @ 220 mls/hr Q8HR IVPB 04/04/17 06:00 04/11/17 05:59 04/04/17 06:47 Assessment/Plan Assessment/Plan (1) Abdominal pain (2) Appendicitis (3) S/p Appendectomy seen dictated BAYLEE COCHRAN Apr 04, 2017 08:30
--- NOTE | 2017-04-04 08:54 | General Progress Note ---
Progress Note Progress Note Looks and feels "great, voiding well, no BM but feels like it. Hungry. Tm 100.6, now 98 Lungs: clear Abdomen: soft, dressings dry, no bleeding. Peristalsis present. Impression: s/l lap appendectomy, stable Will give full liquids, soft in am if all OK. Home tomorrow from surgical standpoint if all is well. ANNETTA SIMMONS Apr 04, 2017 08:54
--- NOTE | 2017-04-04 09:10 | Diagnostic Imaging Report ---
Clinical Indication: Severe abdominal pain with nausea and vomiting Technique: No oral contrast utilized, per emergency room physician request IV administration nonionic contrast. Venous phase spiral acquisition obtained through the abdomen and pelvis. Multiplanar reconstructions were generated. Total dose length product 790 mGycm. CTDIvol(s) 15 mGy. Dose reduction achieved using automated exposure control Comparison: None Findings: The appendix is dilated, contains multiple appendicoliths. There is surrounding inflammation of the periappendiceal fat. Small amount of fluid is seen within the pelvis. Adjacent small bowel loops are mildly dilated and fluid-filled. No evidence of diverticulosis or diverticulitis. No free intraperitoneal air. The distal esophagus, stomach, duodenum are unremarkable. The liver, gallbladder, bile ducts, pancreas, spleen, adrenals, kidneys are unremarkable. No pelvic mass or adenopathy demonstrated. The included lung bases are clear. The bones are unremarkable. Impression: Findings are compatible with acute appendicitis. Small amount free pelvic fluid, presumably related to such Mildly dilated fluid-filled distal ileum, probably focal ileus secondary to the above This agrees with the preliminary interpretation provided overnight by [facility] teleradiology service. The CT scanner at [facility] is accredited by the [employer] and the scans are performed using protocols designed to limit radiation exposure to as low as reasonably achievable to attain images of sufficient resolution adequate for diagnostic evaluation.
[2017-04-04] MEDS: Norco 10mg/325mg tab ORAL PRN (15:51)
[2017-04-04] MEDS: HYDROmorphone 1mg/ml Carpuject IVP PRN ×2 (16:52→22:08)
--- NOTE | 2017-04-04 18:10 | Infectious Diseases Prog Note ---
Assessment/Plan Problems: (1) Acute appendicitis Assessment & Plan: continue zosyn empiric treatment pending culture results , had surgical intervention, surgery is following (2) UTI (urinary tract infection) Assessment & Plan: already on zosyn , will send urine for culture (3) Sepsis Assessment & Plan: due to the above, continue zosyn , will send blood culture Subjective Constitutional: Reports: no symptoms HEENT: Reports: no symptoms Respiratory: Reports: no symptoms Breasts: Reports: no symptoms Cardiovascular: Reports: no symptoms Gastrointestinal/Abdominal: Reports: nausea, constipation, bloating Genitourinary: Reports: no symptoms Neurologic: Reports: no symptoms Psychiatric: Reports: no symptoms Skin: Reports: no symptoms Endocrine: Reports: no symptoms Allergies: Coded Allergies: No Known Allergies (Unverified , 07/17/12) Objective Vital Signs Last 24 Hour Vital Signs Date Time Temp Pulse Resp B/P (MAP) Pulse Ox O2 Delivery O2 Flow Rate FiO2 04/04/17 11:51 98.1 72 18 117/57 98 Nasal Cannula 2.0 04/04/17 04:00 98.4 75 16 109/66 100 Nasal Cannula 2.0 04/04/17 02:15 99.7 86 18 124/68 98 Nasal Cannula 2.0 04/04/17 01:30 99.2 04/04/17 01:15 100.6 90 18 125/69 98 Nasal Cannula 2.0 04/04/17 00:55 99.7 82 25 133/70 100 Nasal Cannula 3.0 04/04/17 00:50 81 20 131/72 100 Nasal Cannula 3.0 04/04/17 00:40 85 24 134/72 100 Nasal Cannula 3.0 04/04/17 00:30 81 16 137/75 100 Simple Mask 6.0 04/04/17 00:23 82 25 142/76 100 Simple Mask 6.0 04/04/17 00:18 82 27 144/77 100 Simple Mask 6.0 04/04/17 00:14 81 18 100 04/04/17 00:13 100.7 87 34 146/89 98 Simple Mask 6.0 04/04/17 00:13 89 16 100 04/03/17 22:55 98.4 70 18 132/76 99 Room Air 04/03/17 22:50 98.4 70 18 132/76 99 Room Air 04/03/17 21:45 98.4 66 18 134/77 99 Room Air 04/03/17 19:22 98.4 64 20 129/76 99 Room Air Height (Feet): 5 Height (Inches): 11.00 Weight (Pounds): 170 General Appearance: WD/WN, no acute distress HEENT: normocephalic, atraumatic, anicteric, mucous membranes moist, PERRL Respiratory/Chest: chest wall non-tender, lungs clear, normal breath sounds, no respiratory distress, no accessory muscle use, decreased breath sounds Cardiovascular: normal peripheral pulses, normal rate, regular rhythm, no gallop/murmur, no JVD Abdomen: non distended, no mass, no scars, absent bowel sounds, distended, tender Extremities: no cyanosis, no clubbing Skin: no rash, no lesions, no ulcers Laboratory Tests Test 04/03/17 18:50 04/04/17 05:35 White Blood Count 17.2 K/UL (4.8-10.8) H 14.7 K/UL (4.8-10.8) H Red Blood Count 5.04 M/UL (4.70-6.10) 5.14 M/UL (4.70-6.10) Hemoglobin 15.9 G/DL (14.2-18.0) 15.8 G/DL (14.2-18.0) Hematocrit 44.8 % (42.0-52.0) 46.3 % (42.0-52.0) Mean Corpuscular Volume 89 FL (80-99) 90 FL (80-99) Mean Corpuscular Hemoglobin 31.5 PG (27.0-31.0) H 30.7 PG (27.0-31.0) Mean Corpuscular Hemoglobin Concent 35.5 G/DL (32.0-36.0) 34.1 G/DL (32.0-36.0) Red Cell Distribution Width 10.8 % (11.6-14.8) L 11.0 % (11.6-14.8) L Platelet Count 176 K/UL (150-450) 183 K/UL (150-450) Mean Platelet Volume 8.1 FL (6.5-10.1) 8.1 FL (6.5-10.1) Neutrophils (%) (Auto) 82.0 % (45.0-75.0) H % (45.0-75.0) Lymphocytes (%) (Auto) 7.4 % (20.0-45.0) L % (20.0-45.0) Monocytes (%) (Auto) 10.0 % (1.0-10.0) % (1.0-10.0) Eosinophils (%) (Auto) 0.2 % (0.0-3.0) % (0.0-3.0) Basophils (%) (Auto) 0.5 % (0.0-2.0) % (0.0-2.0) Prothrombin Time 12.0 SEC (9.30-11.50) H Prothromb Time International Ratio 1.1 (0.9-1.1) Activated Partial Thromboplast Time 30 SEC (23-33) Sodium Level 137 mEQ/L (135-145) 136 mEQ/L (135-145) Potassium Level 4.3 mEQ/L (3.4-4.9) 4.3 mEQ/L (3.4-4.9) Chloride Level 99 mEQ/L (98-107) 97 mEQ/L (98-107) L Carbon Dioxide Level 28 mEQ/L (20-30) 27 mEQ/L (20-30) Anion Gap 10 (5-15) 12 (5-15) Blood Urea Nitrogen 7 mg/dL (7-23) 9 mg/dL (7-23) Creatinine 0.9 mg/dL (0.7-1.2) 1.1 mg/dL (0.7-1.2) Estimat Glomerular Filtration Rate > 60 mL/min (>60) > 60 mL/min (>60) Glucose Level 139 mg/dL (74-106) H 167 mg/dL (74-106) H Calcium Level 9.3 mg/dL (8.6-10.2) 8.9 mg/dL (8.6-10.2) Total Bilirubin 2.3 mg/dL (0.0-1.2) H Direct Bilirubin 0.3 mg/dL (0.1-0.3) Aspartate Amino Transf (AST/SGOT) 17 U/L (5-40) Alanine Aminotransferase (ALT/SGPT) 15 U/L (3-41) Alkaline Phosphatase 80 U/L (40-129) Total Protein 7.6 g/dL (6.6-8.7) Albumin 4.6 g/dL (3.5-5.2) Globulin 3.0 g/dL Albumin/Globulin Ratio 1.5 (1.0-2.7) Lipase 15 U/L (< 60) Current Medications Medications (Trade) Dose Ordered Sig/Edwina Route PRN Reason Start Time Stop Time Status Last Admin Dose Admin Acetaminophen/ Hydrocodone Bitart ([place] 10/325) 1 ea Q4H PRN ORAL moderate Pain 04/04/17 08:30 04/11/17 08:29 04/04/17 15:51 Heparin Sodium (Porcine) (Heparin 5000 units/ml) 5,000 units EVERY 12 HOURS SUBQ 04/04/17 09:00 05/04/17 08:59 04/04/17 08:28 Hydromorphone HCl (Dilaudid) 1 mg Q3H PRN IVP severe pain 04/04/17 09:15 04/11/17 09:14 04/04/17 16:52 Lactated Ringer's 1,000 ml @ 75 mls/hr [id number] IV 04/04/17 01:00 05/04/17 00:59 04/04/17 15:00 Ondansetron HCl (Zofran) 4 mg Q6H PRN IVP Nausea & Vomiting 04/04/17 00:15 05/04/17 00:14 Piperacillin Sod/ Tazobactam Sod 3.375 gm/Sodium Chloride 110 ml @ 27.5 mls/hr Q8HR IVPB 04/04/17 22:00 04/11/17 05:59 Gordy Mane M.D. Apr 04, 2017 18:10
[2017-04-04] MEDS ORDERED: D5 1/2NS 1000ml IV ONE (18:37)
[2017-04-04] MEDS ORDERED: Tubing IV Secondary IV ONE (18:37)
[2017-04-05] VITALS: BP 123/62
--- NOTE | 2017-04-05 02:15 | Consultation ---
DATE OF CONSULTATION: INFECTIOUS DISEASES CONSULTATION CONSULTING PHYSICIAN: Gordy Mane M.D. REQUESTING PHYSICIAN: Radha Marquez M.D. Reason For Consultation: Acute appendicitis with sepsis and fever, recommendation for antibiotics therapy. History Of Present Illness: The patient is a 21-year-old male with no significant past medical history except asthma, presented to [facility] emergency room with progressive abdominal pain, which started the day before. His pain was 10/10, dull deep ache in the periumbilical area, radiates to the right lower quadrant. His abdominal pain was associated with nausea, vomiting, and fever. His pain gets worse with movement. The patient had a CT scan of the abdomen. It showed evidence of acute appendicitis. So, he was admitted to the hospital for surgical treatment and I was consulted by the primary provider for antibiotics treatment and further management. PAST MEDICAL HISTORY: Significant for asthma. PAST SURGICAL HISTORY: Negative. Medications: He is on Zosyn. For the rest of his medications, please refer to MAR. ALLERGIES: No known drug allergy. Social History: The patient is unemployed. Lives with family. Denied using any drugs, tobacco, or alcohol. FAMILY HISTORY: Not contributory. PHYSICAL EXAMINATION: Vital Signs: Temperature 98.4 degrees, pulse 70, respirations 18, blood pressure 132/76, and saturation 99% on room air. General: A young male, lying in bed, complaining of abdominal pain, not in distress. HEENT: Normocephalic and atraumatic. Pupils are reactive to light. Moist oral mucosa. No exudate or thrush. NECK: Supple. No lymphadenopathy. CARDIOVASCULAR: Regular rate and rhythm. LUNGS: Clear bilaterally. Abdomen: Soft, tender with rebound in the right lower quadrant. No stiffness. No organomegaly. EXTREMITIES: No edema or cyanosis. Laboratory Data: Labs showed white count of 17.2, hemoglobin of 15.9, and platelet count of 176,000. BUN of 7 and creatinine of 0.9. AST of 17 and ALT of 15. Urinalysis showed evidence of urinary tract infection with leukocyte esterase +1, WBC 0 to 2, and many mucus. Imaging: CT scan of the abdomen and pelvis showed acute appendicitis, small amount of free pelvic fluid related to such mildly dilated fluid-filled distal ileum, probably focal ileus secondary to the above. ASSESSMENT AND RECOMMENDATIONS: 1. Acute appendicitis. We will start the patient on Zosyn empiric treatment pending culture results. Need surgical intervention. Surgery is following for appendectomy. 2. Urinary tract infection, already on Zosyn. We will send urine for culture. 3. Sepsis with leukocytosis due to the above. Continue Zosyn. We will send blood culture to rule out bacteremia. Thank you for the consult. Gordy Mane M.D. DR: BRUNO JOB#: [id number] CC:
[2017-04-05 04:00] VITALS: BP 119/66
[2017-04-05] MEDS: HYDROmorphone 1mg/ml Carpuject IVP PRN ×5 (04:22→21:14)
[2017-04-05] MEDS: Piperacillin/Tazobactam 3.375 GM in NS 110 ML IVPB SCH ×3 (05:03→22:00)
[2017-04-05 08:27] VITALS: BP 121/73
[2017-04-05] MEDS: Heparin 5000 units/ml inj SUBQ SCH ×2 (08:33→21:12)
--- NOTE | 2017-04-05 09:00 | History and Physical Report ---
DATE OF ADMISSION: 04/03/2017 History Of Present Illness: The patient is admitted for acute appendicitis. The patient had emergent appendectomy by Dr. Loredo. The patient is admitted for post observation post laparotomy and appendectomy. The patient originally was complaining of abdominal pain, vomiting, and low-grade fever for 1 day that came all of a sudden, was admitted to the hospital for acute appendicitis. The patient denies chills, but did have low-grade fever. Abdominal pain and vomiting has improved dramatically post operation. PAST MEDICAL HISTORY: None. PAST SURGICAL HISTORY: Left thumb surgery. MEDICATIONS: Does not take any active medications. ALLERGIES: No known allergies. Social History: The patient smokes. Has a history of drug abuse. No history of alcohol abuse. FAMILY HISTORY: Noncontributory. Review Of Systems: HEENT: Denies headaches. Respiratory: Denies shortness of breath. Denies cough. Cardiovascular: Denies chest pain. Gastrointestinal: Does have vomiting and abdominal pain for 1 day that started suddenly yesterday. Extremities: Denies pain in the extremities. Central Nervous System: No change in vision or speech pattern. PHYSICAL EXAMINATION: Vital Signs: Temperature is 99.7 degrees, pulse is 82, and blood pressure is 132/70. HEENT: PERRLA. NECK: Supple. No lymphadenopathy. CHEST: Clear to auscultation. Gastrointestinal: Does have right lower quadrant tenderness. No rebound. Positive bowel sounds. Abdomen is soft. EXTREMITIES: No edema. Moves all 4 extremities. Neurologic: Sensory intact to light touch. Reflexes are equal on both sides. ASSESSMENT: Status post laparoscopic appendectomy. Plan: Dr. Dickerson, Dr. Loredo, , Dr. Strauss, and Dr. Ring were also consulted for the case for the dehydration and for the antibiotics as well as for the appendectomy as well as for pain control. Radha Marquez M.D. DR: DIGNA JOB#: [id number] CC:
--- NOTE | 2017-04-05 09:02 | Consultation ---
DATE OF CONSULTATION: 04/04/2017 PAIN MANAGEMENT CONSULTATION CONSULTING PHYSICIAN: Ameya Dickerson M.D. REFERRING PHYSICIAN: Radha Marquez M.D. PHYSICIAN STORE PROTECTION SPECIALIST: Brigitte Tan CHIEF COMPLAINT: Abdominal pain. History Of Present Illness: This is a 21-year-old male, who is being seen on the Med/Surg floor of [facility] for initial comprehensive pain management consultation. The patient reports that he had been having severe abdominal pain in the right lower quadrant, described the pain as an ache with nausea, vomiting, and low-grade fevers, admitted into the hospital, found to have acute appendicitis, status post laparoscopic appendectomy. At this time, the patient is in bed, in no acute distress. The pain has been stable on the current medication of Dilaudid, which he was started at 1 to 2 mg IV every 3 hours as needed for [id number] pain and was given Dilaudid 1 mg as needed. We were consulted so that the patient would have adequate pain control while here in the hospital. PAST MEDICAL HISTORY: Denies. PAST SURGICAL HISTORY: Repair of injury of his left wrist. ALLERGIES: No known drug allergies. MEDICATIONS: Denies taking any medications daily. Social History: Denies smoking tobacco, drinking alcohol, or drug abuse. Review Of Systems: Denies rash, fever, chills, sweating, dizziness, drowsiness, blurred vision, sore throat, or change in weight. No shortness of breath or chest pain. No nausea, vomiting, diarrhea, or blood in the stool or urine. No bowel or bladder incontinence. No dysuria. He is complaining of abdominal pain. PHYSICAL EXAMINATION: GENERAL: Alert, awake, and oriented x3. Vital Signs: Blood pressure 109/66, heart rate 75, oxygen saturation 01:46, respiratory rate 16, and temperature 01:47 degrees Fahrenheit. HEENT: PERRLA. Neck: Range of motion is full in all directions. No tenderness to paracervical muscles. No adenopathy. LUNGS: Clear. HEART: Regular. ABDOMEN: Tenderness to palpation with bandage noted. Back: Range of motion is decreased in flexion and extension. No tenderness to paraspinal muscles. No tenderness to trapezius or rhomboid muscles. Extremities: Upper extremity range of motion is full in all directions. Motor is intact. No cyanosis. No clubbing. No edema. Sensory is intact. Reflexes are not obtainable. No adenopathy. Lower extremity motion is full in all directions. Motor is intact. No cyanosis. No clubbing. No edema. Sensory is intact. Reflexes are not obtainable. No adenopathy. Assessment And Plan: This is a 21-year-old male with acute appendicitis, abdominal pain, status post laparoscopic appendectomy. The patient will be continued on 02:24 Dilaudid 1 mg IV every 3 hours as needed for severe pain, [place] 10/325 mg 1 tablet every 4 hours as needed for moderate pain. The patient was discussed with Dr. Dickerson and Dr. Dickerson concurred. We will follow the patient. Thank you very much for the courtesy of this consultation. Ameya Dickerson M.D. RUBEN Tan DR: MARY JOB#: [id number] CC:
--- NOTE | 2017-04-05 09:15 | Consultation ---
DATE OF CONSULTATION: 04/04/2017 GASTROLOGY CONSULTATION CONSULTING PHYSICIAN: Ad Ring M.D. Chief Complaint: I was asked to see this patient by Dr. Radha Marquez for evaluation of appendicitis. History Of Present Illness: The patient is a pleasant 21-year-old man who was admitted yesterday to the hospital with abdominal pain. His evaluation was consistent with acute appendicitis and underwent laparoscopic appendectomy. The patient is doing better today. Although, he seems to have some abdominal pain especially around his wounds. He has had no nausea or vomiting. PAST MEDICAL HISTORY: Otherwise negative. PAST SURGICAL HISTORY: Status post wrist injury repair. SOCIAL HISTORY: The patient does not smoke or drink. FAMILY HISTORY: Noncontributory. REVIEW OF SYSTEMS: Otherwise negative. PHYSICAL EXAMINATION: General: The patient is a pleasant man, seen in his room with family at bedside. HEENT: Normocephalic and atraumatic. Sclerae anicteric. Oropharynx clear. NECK: Supple. CHEST: Clear to auscultation. CARDIOVASCULAR: Regular rhythm and rate. ABDOMEN: Soft with good wounds. EXTREMITIES: Revealed no edema. LABORATORY DATA: Noted. Assessment: This patient has had an episode of acute appendicitis, which has been treated with laparoscopic appendectomy. The patient wounds will be followed and his diet and will be advanced. Early discharge planning will be considered once the patient's bowel function has returned. Recommendations: Per above discussion and per orders written in the chart. Thank you for asking me to participate in the care of this patient. Ad Ring M.D. DR: JAIME JOB#: [id number] CC: WILMER
--- NOTE | 2017-04-05 09:44 | General Progress Note ---
Progress Note Progress Note Surgery: patient seen and examined at bedside. doing well. pain slowly improving. no n /v. minimal flatus. no BM. minimal ambulation Febrile T max 101.2 this AM No AM labs Abdomen soft, distended, incisions, c/d/i, incisional tenderness. -fever likely from atelectasis. he needs to be ambulatory and using Incentive spirometry -AM CBC ordered to evaluate trend of leukocytosis -diet as tolerated -likely discharge tomorrow Hans Hess Apr 05, 2017 09:44
--- NOTE | 2017-04-05 09:54 | General Progress Note ---
Assessment/Plan Assessment/Plan Assessment - Acute appy - s/p appendectomy Recommendations - post op care - OOB Subjective Allergies: Coded Allergies: No Known Allergies (Unverified , 07/17/12) Subjective c/o abd discomfort no gas or BM yet Objective Last 24 Hour Vital Signs Date Time Temp Pulse Resp B/P (MAP) Pulse Ox O2 Delivery O2 Flow Rate FiO2 04/05/17 08:58 101.2 04/05/17 08:27 101.2 85 20 121/73 95 Room Air 04/05/17 04:00 98.6 76 18 119/66 99 Nasal Cannula 2.0 04/05/17 00:00 97.6 66 18 123/62 100 Nasal Cannula 2.0 04/04/17 20:00 98.1 69 18 114/71 Nasal Cannula 2.0 04/04/17 11:51 98.1 72 18 117/57 98 Nasal Cannula 2.0 Intake and Output 04/05/17 04/06/17 19:00 07:00 Intake Total 340 ml Balance 340 ml Intake Oral 340 ml # Voids 1 Height (Feet): 5 Height (Inches): 11.00 Weight (Pounds): 170 Objective NAD CTA RRR soft mildly distended, wounds OK no edema non focal SALOME WEAVER Apr 05, 2017 09:54
[2017-04-05 11:27] VITALS: BP 133/76
[2017-04-05 15:57] VITALS: BP 118/65
--- NOTE | 2017-04-05 18:48 | Infectious Diseases Prog Note ---
Assessment/Plan Problems: (1) Acute appendicitis Assessment & Plan: on zosyn empiric treatment pending culture results , had surgical intervention, surgery is following (2) UTI (urinary tract infection) Assessment & Plan: already on zosyn , will send urine for culture (3) Sepsis Assessment & Plan: due to the above, continue zosyn , will send blood culture (4) Fever Assessment & Plan: rule out sepsis, will send blood culture and start vancomycin . Subjective Constitutional: Reports: no symptoms HEENT: Reports: no symptoms Respiratory: Reports: productive cough Breasts: Reports: no symptoms Cardiovascular: Reports: no symptoms Gastrointestinal/Abdominal: Reports: bloating Genitourinary: Reports: no symptoms Neurologic: Reports: no symptoms Psychiatric: Reports: no symptoms Skin: Reports: no symptoms Endocrine: Reports: no symptoms Hematologic: Reports: no symptoms Musculoskeletal: Reports: no symptoms Allergies: Coded Allergies: No Known Allergies (Unverified , 07/17/12) Objective Vital Signs Last 24 Hour Vital Signs Date Time Temp Pulse Resp B/P (MAP) Pulse Ox O2 Delivery O2 Flow Rate FiO2 04/05/17 17:48 101.0 04/05/17 17:08 101.0 04/05/17 15:57 100.2 83 20 118/65 95 Room Air 04/05/17 11:27 101.1 88 20 133/76 96 Room Air 04/05/17 08:27 101.2 85 20 121/73 95 Room Air 04/05/17 04:00 98.6 76 18 119/66 99 Nasal Cannula 2.0 04/05/17 00:00 97.6 66 18 123/62 100 Nasal Cannula 2.0 04/04/17 20:00 98.1 69 18 114/71 Nasal Cannula 2.0 Height (Feet): 5 Height (Inches): 11.00 Weight (Pounds): 170 General Appearance: WD/WN, no acute distress HEENT: normocephalic, atraumatic, anicteric, mucous membranes moist, PERRL Respiratory/Chest: chest wall non-tender, lungs clear, normal breath sounds, no respiratory distress, no accessory muscle use Cardiovascular: normal peripheral pulses, normal rate, regular rhythm, no gallop/murmur, no JVD Abdomen: normal bowel sounds, soft, non tender, no organomegaly, non distended , no mass, no scars Genitourinary: normal external genitalia Extremities: no cyanosis, no clubbing Skin: no rash, no lesions, no ulcers Neurologic/Psychiatric: alert, oriented x 3 Microbiology Date/Time Source Procedure Growth Status 04/04/17 05:40 Blood Blood Culture - Preliminary NO GROWTH AFTER 24 HOURS Resulted 04/04/17 05:35 Blood Blood Culture - Preliminary NO GROWTH AFTER 24 HOURS Resulted Current Medications Medications (Trade) Dose Ordered Sig/Edwina Route PRN Reason Start Time Stop Time Status Last Admin Dose Admin Acetaminophen (Tylenol) 650 mg Q4H PRN ORAL Mild Pain/Temp > 100.5 04/05/17 14:45 05/05/17 14:44 04/05/17 16:09 Acetaminophen/ Hydrocodone Bitart ([place] ) 1 ea Q4H PRN ORAL moderate Pain 04/04/17 08:30 04/11/17 08:29 04/04/17 15:51 Heparin Sodium (Porcine) (Heparin 5000 units/ml) 5,000 units EVERY 12 HOURS SUBQ 04/04/17 09:00 05/04/17 08:59 04/05/17 08:33 Hydromorphone HCl (Dilaudid) 1 mg Q3H PRN IVP severe pain 04/04/17 09:15 04/11/17 09:14 04/05/17 17:18 Ondansetron HCl (Zofran) 4 mg Q6H PRN IVP Nausea & Vomiting 04/04/17 00:15 05/04/17 00:14 Piperacillin Sod/ Tazobactam Sod 3.375 gm/Sodium Chloride 110 ml @ 27.5 mls/hr Q8HR IVPB 04/04/17 22:00 04/11/17 05:59 04/05/17 14:35 Gordy Mane M.D. Apr 05, 2017 18:48
[2017-04-05 20:00] VITALS: BP 114/63
[2017-04-05] MEDS ORDERED: Vancomycin 1.5 GM/D5W 250ML IVPB ONE (20:00)
--- NOTE | 2017-04-05 20:40 | General Progress Note ---
Assessment/Plan Problem List: (1) Acute appendicitis ICD Codes: K35.80 - Unspecified acute appendicitis SNOMED: 57607600 Qualifiers: Qualified Codes: K35.89 - Other acute appendicitis Status: stable Assessment/Plan s/p laproscopic appendectomy afebrile Subjective Gastrointestinal/Abdominal: Reports: abdominal pain Allergies: Coded Allergies: No Known Allergies (Unverified , 07/17/12) Objective Last 24 Hour Vital Signs Date Time Temp Pulse Resp B/P (MAP) Pulse Ox O2 Delivery O2 Flow Rate FiO2 04/05/17 19:00 98.8 04/05/17 17:48 101.0 04/05/17 17:08 101.0 04/05/17 15:57 100.2 83 20 118/65 95 Room Air 04/05/17 11:27 101.1 88 20 133/76 96 Room Air 04/05/17 08:27 101.2 85 20 121/73 95 Room Air 04/05/17 04:00 98.6 76 18 119/66 99 Nasal Cannula 2.0 04/05/17 00:00 97.6 66 18 123/62 100 Nasal Cannula 2.0 Intake and Output 04/05/17 04/06/17 19:00 07:00 Intake Total 730.0 ml Balance 730.0 ml Intake Oral 620 ml IV Total 110.0 ml # Voids 7 Height (Feet): 5 Height (Inches): 11.00 Weight (Pounds): 170 Respiratory/Chest: lungs clear Abdomen: tender Radha Marquez MD Apr 05, 2017 20:40
[2017-04-06] VITALS (7 sets, daily range): BP systolic 109–116; BP diastolic 60–75
[2017-04-06] MEDS: HYDROmorphone 1mg/ml Carpuject IVP PRN ×3 (02:41→22:51)
[2017-04-06] MEDS: Vancomycin 1gm/D5W 275ml IVPB SCH ×4 (04:56→11:49)
[2017-04-06] MEDS: Piperacillin/Tazobactam 3.375 GM in NS 110 ML IVPB SCH ×3 (06:25→22:00)
[2017-04-06 07:24] LABS: BASOPHILS % (AUTO) 0.6 % (0.0-2.0); EOSINOPHILS % (AUTO) 1.1 % (0.0-3.0); LYMPHOCYTES % (AUTO) 9.4 % (20.0-45.0); MEAN CORPUSCULAR HEMOGLOBIN 30.3 PG (27.0-31.0); MEAN CORPUSCULAR HGB CONC 33.8 G/DL (32.0-36.0); MEAN CORPUSCULAR VOLUME 90 FL (80-99); MEAN PLATELET VOLUME 8.5 FL (6.5-10.1); NEUTROPHILS % (AUTO) 79.9 % (45.0-75.0); PLATELET COUNT 167 K/UL (150-450); RED BLOOD COUNT 4.35 M/UL (4.70-6.10); RED CELL DISTRIBUTION WIDTH 10.7 % (11.6-14.8); WHITE BLOOD COUNT 11.2 K/UL (4.8-10.8)
[2017-04-06] MEDS: Heparin 5000 units/ml inj SUBQ SCH ×2 (08:10→20:36)
[2017-04-06] MEDS: Norco 10mg/325mg tab ORAL PRN (08:15)
[2017-04-06] MEDS: Docusate 100mg cap ORAL SCH ×2 (09:39→17:07)
[2017-04-06] MEDS ORDERED: Sennosides 8.6mg ORAL PRN (10:00)
[2017-04-06] MEDS ORDERED: Milk of Magnesia 30ml Ud ORAL PRN (10:00)
--- NOTE | 2017-04-06 10:41 | General Progress Note ---
Progress Note Progress Note po day 2 sp laparoscopic appendectomy doing well, lowe grade fevers yesterday, no afebrile. passing flatus no bm yet. ambulating in liz. Last 24 Hour Vital Signs Date Time Temp Pulse Resp B/P (MAP) Pulse Ox O2 Delivery O2 Flow Rate FiO2 04/06/17 09:14 99.0 04/06/17 08:00 98.8 79 19 114/67 97 Room Air 04/06/17 04:00 99.0 68 18 114/64 99 Room Air 04/06/17 00:00 99.3 79 18 116/74 99 Room Air 04/05/17 19:00 98.8 04/05/17 17:48 101.0 04/05/17 17:08 101.0 04/05/17 15:57 100.2 83 20 118/65 95 Room Air 04/05/17 11:27 101.1 88 20 133/76 96 Room Air lungs clear heart nsr abd soft wounds clean and dry surgically okay to dc home. will see in office next week [phone] fir appt LEÓN HERNANDEZ Apr 06, 2017 10:41
--- NOTE | 2017-04-06 15:23 | Diagnostic Imaging Report ---
Indication: POST-OP chest pain Technique: One view of the chest Comparison: none Findings: Lungs and pleural spaces are clear. Heart size is normal. Impression: No acute process
--- NOTE | 2017-04-06 15:26 | General Progress Note ---
Assessment/Plan Problem List: (1) Acute appendicitis ICD Codes: K35.80 - Unspecified acute appendicitis SNOMED: 56370863 Qualifiers: Qualified Codes: K35.89 - Other acute appendicitis Status: progressing Assessment/Plan s/p laproscopic appendectomy abdominal pain dc home once cleared by surgeon Subjective ROS Limited/Unobtainable: Yes Constitutional: Reports: no symptoms Allergies: Coded Allergies: No Known Allergies (Unverified , 07/17/12) Objective Last 24 Hour Vital Signs Date Time Temp Pulse Resp B/P (MAP) Pulse Ox O2 Delivery O2 Flow Rate FiO2 04/06/17 12:00 98.6 64 19 110/60 96 Room Air 04/06/17 09:14 99.0 04/06/17 08:00 98.8 79 19 114/67 97 Room Air 04/06/17 04:00 99.0 68 18 114/64 99 Room Air 04/06/17 00:00 99.3 79 18 116/74 99 Room Air 04/05/17 20:00 99.6 80 20 114/63 97 Room Air 04/05/17 19:00 98.8 04/05/17 17:48 101.0 04/05/17 17:08 101.0 04/05/17 15:57 100.2 83 20 118/65 95 Room Air Intake and Output 04/06/17 04/07/17 19:00 07:00 Intake Total 607.416 ml Balance 607.416 ml Intake Oral 240 ml IV Total 367.416 ml # Voids 2 Laboratory Tests 04/06/17 05:40: White Blood Count 11.2H, Red Blood Count 4.35L, Hemoglobin 13.2L, Hematocrit 39.0L, Mean Corpuscular Volume 90, Mean Corpuscular Hemoglobin 30.3, Mean Corpuscular Hemoglobin Concent 33.8, Red Cell Distribution Width 10.7L, Platelet Count 167, Mean Platelet Volume 8.5, Neutrophils (%) (Auto) 79.9H, Lymphocytes (%) (Auto) 9.4L, Monocytes (%) (Auto) 9.0, Eosinophils (%) (Auto) 1.1, Basophils (%) (Auto) 0.6 Height (Feet): 5 Height (Inches): 11.00 Weight (Pounds): 170 Cardiovascular: regular rhythm Respiratory/Chest: lungs clear Abdomen: tender Hadadz,Ali MD Apr 06, 2017 15:26
--- NOTE | 2017-04-06 15:33 | General Progress Note ---
Assessment/Plan Assessment/Plan Assessment - Acute appy - s/p appendectomy Recommendations - post op care - OOB - ? dulcolax supp. Subjective Allergies: Coded Allergies: No Known Allergies (Unverified , 07/17/12) Subjective c/o abd discomfort small amount of flatus no BM yet d/w at bedside Objective Last 24 Hour Vital Signs Date Time Temp Pulse Resp B/P (MAP) Pulse Ox O2 Delivery O2 Flow Rate FiO2 04/06/17 12:00 98.6 64 19 110/60 96 Room Air 04/06/17 09:14 99.0 04/06/17 08:00 98.8 79 19 114/67 97 Room Air 04/06/17 04:00 99.0 68 18 114/64 99 Room Air 04/06/17 00:00 99.3 79 18 116/74 99 Room Air 04/05/17 20:00 99.6 80 20 114/63 97 Room Air 04/05/17 19:00 98.8 04/05/17 17:48 101.0 04/05/17 17:08 101.0 04/05/17 15:57 100.2 83 20 118/65 95 Room Air Intake and Output 04/06/17 04/07/17 19:00 07:00 Intake Total 607.416 ml Balance 607.416 ml Intake Oral 240 ml IV Total 367.416 ml # Voids 2 Laboratory Tests 04/06/17 05:40: White Blood Count 11.2H, Red Blood Count 4.35L, Hemoglobin 13.2L, Hematocrit 39.0L, Mean Corpuscular Volume 90, Mean Corpuscular Hemoglobin 30.3, Mean Corpuscular Hemoglobin Concent 33.8, Red Cell Distribution Width 10.7L, Platelet Count 167, Mean Platelet Volume 8.5, Neutrophils (%) (Auto) 79.9H, Lymphocytes (%) (Auto) 9.4L, Monocytes (%) (Auto) 9.0, Eosinophils (%) (Auto) 1.1, Basophils (%) (Auto) 0.6 Height (Feet): 5 Height (Inches): 11.00 Weight (Pounds): 170 Objective NAD CTA RRR soft mildly distended, wounds OK no edema non focal SALOME WEAVER Apr 06, 2017 15:33
[2017-04-06] MEDS ORDERED: NS Irrig 1000ml ONE (16:05)
[2017-04-06] MEDS ORDERED: Tubing IV Secondary IV ONE (16:05)
--- NOTE | 2017-04-06 18:30 | Infectious Diseases Prog Note ---
Assessment/Plan Problems: (1) Acute appendicitis Assessment & Plan: on zosyn and vancomycin empiric treatment pending culture results , had surgical resection of the appendix , surgery is following (2) UTI (urinary tract infection) Assessment & Plan: already on zosyn , will send urine for culture (3) Sepsis Assessment & Plan: due to the above, continue zosyn and vancomycin , pending blood culture (4) Fever Assessment & Plan: rule out sepsis, will send blood culture and start vancomycin . Subjective Constitutional: Reports: no symptoms HEENT: Reports: no symptoms Respiratory: Reports: no symptoms Breasts: Reports: no symptoms Cardiovascular: Reports: no symptoms Gastrointestinal/Abdominal: Reports: no symptoms Genitourinary: Reports: no symptoms Neurologic: Reports: no symptoms Psychiatric: Reports: no symptoms Skin: Reports: no symptoms Endocrine: Reports: no symptoms Hematologic: Reports: no symptoms Allergies: Coded Allergies: No Known Allergies (Unverified , 07/17/12) Objective Vital Signs Last 24 Hour Vital Signs Date Time Temp Pulse Resp B/P (MAP) Pulse Ox O2 Delivery O2 Flow Rate FiO2 04/06/17 16:00 99.0 75 19 109/64 97 Room Air 04/06/17 12:00 98.6 64 19 110/60 96 Room Air 04/06/17 09:14 99.0 04/06/17 08:00 98.8 79 19 114/67 97 Room Air 04/06/17 04:00 99.0 68 18 114/64 99 Room Air 04/06/17 00:00 99.3 79 18 116/74 99 Room Air 04/05/17 20:00 99.6 80 20 114/63 97 Room Air 04/05/17 19:00 98.8 Height (Feet): 5 Height (Inches): 11.00 Weight (Pounds): 170 General Appearance: WD/WN, no acute distress HEENT: normocephalic, atraumatic, anicteric, mucous membranes moist, PERRL Respiratory/Chest: chest wall non-tender, lungs clear, normal breath sounds, no respiratory distress, no accessory muscle use Cardiovascular: normal peripheral pulses, normal rate, regular rhythm Abdomen: normal bowel sounds, soft, non tender, no organomegaly, non distended , no mass, no scars Extremities: no cyanosis, no clubbing Skin: no rash, no lesions Microbiology Date/Time Source Procedure Growth Status 04/04/17 05:40 Blood Blood Culture - Preliminary NO GROWTH AFTER 24 HOURS Resulted 04/04/17 05:35 Blood Blood Culture - Preliminary NO GROWTH AFTER 24 HOURS Resulted Laboratory Tests Test 04/06/17 05:40 White Blood Count 11.2 K/UL (4.8-10.8) H Red Blood Count 4.35 M/UL (4.70-6.10) L Hemoglobin 13.2 G/DL (14.2-18.0) L Hematocrit 39.0 % (42.0-52.0) L Mean Corpuscular Volume 90 FL (80-99) Mean Corpuscular Hemoglobin 30.3 PG (27.0-31.0) Mean Corpuscular Hemoglobin Concent 33.8 G/DL (32.0-36.0) Red Cell Distribution Width 10.7 % (11.6-14.8) L Platelet Count 167 K/UL (150-450) Mean Platelet Volume 8.5 FL (6.5-10.1) Neutrophils (%) (Auto) 79.9 % (45.0-75.0) H Lymphocytes (%) (Auto) 9.4 % (20.0-45.0) L Monocytes (%) (Auto) 9.0 % (1.0-10.0) Eosinophils (%) (Auto) 1.1 % (0.0-3.0) Basophils (%) (Auto) 0.6 % (0.0-2.0) Current Medications Medications (Trade) Dose Ordered Sig/Edwina Route PRN Reason Start Time Stop Time Status Last Admin Dose Admin Acetaminophen (Tylenol) 650 mg Q4H PRN ORAL Mild Pain/Temp > 100.5 04/05/17 14:45 05/05/17 14:44 04/05/17 16:09 Acetaminophen/ Hydrocodone Bitart ([place] 10/325) 1 ea Q4H PRN ORAL moderate Pain 04/04/17 08:30 04/11/17 08:29 04/06/17 08:15 Docusate Sodium (Colace) 100 mg TWICE A DAY ORAL 04/06/17 10:00 05/06/17 09:59 04/06/17 17:07 Heparin Sodium (Porcine) (Heparin 5000 units/ml) 5,000 units EVERY 12 HOURS SUBQ 04/04/17 09:00 05/04/17 08:59 04/06/17 08:10 Hydromorphone HCl (Dilaudid) 1 mg Q3H PRN IVP severe pain 04/04/17 09:15 04/11/17 09:14 04/06/17 02:41 Magnesium Hydroxide ([place]) 30 ml Q4HR PRN ORAL Constipation 04/06/17 10:00 05/06/17 09:59 04/06/17 09:39 Ondansetron HCl (Zofran) 4 mg Q6H PRN IVP Nausea & Vomiting 04/04/17 00:15 05/04/17 00:14 Piperacillin Sod/ Tazobactam Sod 3.375 gm/Sodium Chloride 110 ml @ 27.5 mls/hr Q8HR IVPB 04/04/17 22:00 04/11/17 05:59 04/06/17 13:29 Sennosides (Senokot) 8.6 mg DAILY PRN ORAL Constipation 04/06/17 10:00 05/06/17 09:59 Vancomycin HCl (Vanco rx to dose) 1 ea DAILY PRN MISC Per rx protocol 04/05/17 18:45 05/05/17 18:44 Vancomycin HCl 1 gm/Dextrose 275 ml @ 183.708 mls/hr Q8H IVPB 04/06/17 04:00 04/11/17 03:59 04/06/17 11:49 Gordy Mane M.D. Apr 06, 2017 18:30
[2017-04-06] MEDS: Vancomycin 1.5gm/D5W 250ml 250 ML IVPB SCH ×2 (20:08→20:33)
[2017-04-07 04:00] VITALS: BP 106/63
[2017-04-07] MEDS: Piperacillin/Tazobactam 3.375 GM in NS 110 ML IVPB SCH (05:31)
[2017-04-07] MEDS: HYDROmorphone 1mg/ml Carpuject IVP PRN (06:36)
[2017-04-07] MEDS ORDERED: Hydromorphone 0.5mg/0.5ml inj IVP PRN (07:15)
--- NOTE | 2017-04-07 07:21 | General Surgery Progress Note ---
General Surgery-Progress Note Subjective Day of Surgery: po day 3 Procedure Performed laparroscopic appendecdtomy Symptoms: improved, tolerating diet, passing flatus Objective Last 24 Hour Vital Signs Date Time Temp Pulse Resp B/P (MAP) Pulse Ox O2 Delivery O2 Flow Rate FiO2 04/07/17 04:00 98.7 71 18 106/63 94 Room Air 04/06/17 23:35 98.2 70 20 112/68 98 Room Air 04/06/17 20:00 98.0 70 19 111/75 98 Room Air 04/06/17 16:00 99.0 75 19 109/64 97 Room Air 04/06/17 12:00 98.6 64 19 110/60 96 Room Air 04/06/17 09:14 99.0 04/06/17 08:00 98.8 79 19 114/67 97 Room Air Dressing: dry Wound: clean Drains: none Cardiovascular: RSR Respiratory: clear Abdomen: soft, flat Laboratory Tests Test 04/06/17 18:55 Vancomycin Level Trough 6.6 ug/mL (5.0-12.0) Assessment Post-op Diagnosis same non perforated Additional Comments stable .. afebrile x 36 hours, leukocytosis resolving. surgically cleared for discharge. will see t in office next week [phone] thanks LEÓN HERNANDEZ Apr 07, 2017 07:21
[2017-04-07 08:00] VITALS: BP 112/66
--- NOTE | 2017-04-07 08:59 | General Progress Note ---
Assessment/Plan Problem List: (1) Acute appendicitis ICD Codes: K35.80 - Unspecified acute appendicitis SNOMED: [id number] Qualifiers: Qualified Codes: K35.89 - Other acute appendicitis Status: progressing Assessment/Plan s/p laproscopic appendectomy abdominal pain dc home once cleared by surgeon and id intermettent fever abx prescription per id Subjective ROS Limited/Unobtainable: Yes Constitutional: Reports: no symptoms Allergies: Coded Allergies: No Known Allergies (Unverified , 07/17/12) Objective Last 24 Hour Vital Signs Date Time Temp Pulse Resp B/P (MAP) Pulse Ox O2 Delivery O2 Flow Rate FiO2 04/07/17 08:00 98.7 66 17 112/66 98 Room Air 04/07/17 04:00 98.7 71 18 106/63 94 Room Air 04/06/17 23:35 98.2 70 20 112/68 98 Room Air 04/06/17 20:00 98.0 70 19 111/75 98 Room Air 04/06/17 16:00 99.0 75 19 109/64 97 Room Air 04/06/17 12:00 98.6 64 19 110/60 96 Room Air 04/06/17 09:14 99.0 Laboratory Tests 04/06/17 18:55: Vancomycin Level Trough 6.6 Height (Feet): 5 Height (Inches): 11.00 Weight (Pounds): 170 Cardiovascular: normal rate Respiratory/Chest: lungs clear Abdomen: soft Radha Marquez MD Apr 07, 2017 08:59
[2017-04-07] MEDS: Docusate 100mg cap ORAL SCH (09:02)
[2017-04-07] MEDS: Norco 10mg/325mg tab ORAL PRN ×2 (09:03→13:22)
[2017-04-07] MEDS: Heparin 5000 units/ml inj SUBQ SCH (09:05)
[2017-04-07] MEDS ORDERED: NORCO 5-325 TA1 EAC1 ORAL (11:30)
[2017-04-07 12:00] VITALS: BP 113/64
--- NOTE | 2017-04-09 14:32 | Discharge Summary ---
Discharge Summary Hospital Course Date of Admission Apr 03, 2017 at 22:22 Date of Discharge Apr 07, 2017 at 14:34 Admitting Diagnosis acute appendicitis HPI Shayan Mtz is a 21 year old male who was admitted on Apr 03, 2017 at 22: 22 for Acute Appendicitis Hospital Course dc summary #[id number] Discharge Medications Continued Medications: Hydrocodone Bit/Acetaminophen 5-325* ([place] 5-325 Tablet*) 1 Each Tablet 1 TAB ORAL Q4H PRN for For Pain, #15 TAB Naproxen* (Naprosyn*) 375 Mg Tablet 375 MG PO BID, #30 TAB Take 1 tablet by mouth two times a day Discharge Condition Upon Discharge: stable Discharge Disposition Patient was discharged to Home (01) Discharge Diagnoses: Discharge Instructions Discharge Instructions Special Instructions I have been assigned to complete a D/C Summary on this account. I was not involved in the patient management Yolanda Vallejo NP ([place]) Apr 09, 2017 14:32
--- NOTE | 2017-04-10 03:00 | Discharge Summary 2 SIG ---
DATE OF ADMISSION: 04/03/2017 DATE OF DISCHARGE: 04/07/2017 Reason For Admission: 21-year-old male without any significant past medical history presented for abdominal pain for one day. The patient reported dull, aching abdominal pain, 8/10 for one day without no reason. Pain was followed by nausea, vomiting, and subjective fever. The patient reported pain worse with movement. He denied any sick contacts. No recent traveling. Workup in the emergency room revealed leukocytosis, WBC- 17.2. CT of the abdomen and pelvis was consistent with acute appendicitis. Abdominal exam revealed localized tenderness to palpation over right lower quadrant. The patient was started on IV fluids. Pain management was provided. Patient was started on empiric antibiotics. Patient was kept NPO. Surgery consulted urgently. The patient was admitted for appendectomy and was taken from ED department straight to the operating room. ADMITTING DIAGNOSIS: 1. Acute appendicitis. Hospital Course: The patient underwent acute laparoscopic appendectomy on 04/03/2017 and transferred to Medical/Surgical floor for further management. The patient was on empiric antibiotics. Blood culture negative. Initially, NPO until bowel function returned and then started on liquid diet, which was advanced as tolerated. Antiemetic provided as needed. Patient was able to tolerate diet. Pain management was provided. Pain specialist followed. The patient was on empiric antibiotic. ID followed. The patient initially with intermittent fevers,which subsequently resolved. Leukocytosis was trending down. Last WBC on 04/06/2017 -11.2. No further fever. Pathology of appendicitis revealed acute transmural appendicitis and serositis. Surgeon cleared for discharge. The patient was stable for discharge home. Final Diagnosis: 1.Acute appendicitis, 2. Status post laparoscopic appendectomy . Discharge Medications: See medication reconciliation list. DISCHARGE INSTRUCTIONS: The patient was discharged home. FOLLOWUP: Followup with the surgeon as advised , as outpatient. Radha Marquez M.D. I have been assigned to dictate discharge summary on this account and I was not involved in the patient's management. Yolanda Vallejo ([facility] Holt DR: MARK JOB#: [id number] CC: WILMER
== END 2017-04-07 14:34 | disposition home or self-care (01) | DRG 710 ==
LOC: EMR 18:30 → 3E 22:22 → EDBEDREQ 22:32 → 3E 04-04 00:55
PROC: 0DTJ4ZZ Resection of Appendix, Percutaneous Endoscopic Approach (ICD-10-PCS; principal; 2017-04-03 23:00)
DX: A41.9 Sepsis, unspecified organism (principal); K35.80 Unspecified acute appendicitis; N39.0 Urinary tract infection, site not specified; F17.200 Nicotine dependence, unspecified, uncomplicated
CPT/HCPCS: 36415; 71010; 74177; 80048; 80053; 80202; 81003; 82248; 83690; 85025; 85610; 85730; 87040; 94003; 94150; 99285; J2405

== ENCOUNTER 2017-04-21 16:55 | Inpatient (IN) | payer MEDICAID ==
[~2017-04-21] VITALS: Ht 177.8 cm; Wt 68.0 kg
[2017-04-21] MEDS: Dextrose 5%/Lactated Ringer's 1,000 ML IV SCH (02:49)
[~2017-04-21 16:55] MED LIST changes: +NORCO 5-325 TA1 EAC1 ORAL
[2017-04-21 17:15] VITALS: BP 112/65
[2017-04-21] MEDS ORDERED: Dicyclomine HCl 10mg/5ml oral soln ORAL ONE (17:30)
[2017-04-21 18:12] LABS: APPEARANCE,URINE CLEAR; BASOPHILS % (AUTO) 1.2 % (0.0-2.0); EOSINOPHILS % (AUTO) 0.7 % (0.0-3.0); KETONES,URINE NEGATIVE (NEGATIVE); LEUKOCYTE ESTERASE ,URINE NEGATIVE (NEGATIVE); LYMPHOCYTES % (AUTO) 13.1 % (20.0-45.0); MEAN CORPUSCULAR HEMOGLOBIN 29.5 PG (27.0-31.0); MEAN CORPUSCULAR HGB CONC 33.5 G/DL (32.0-36.0); MEAN CORPUSCULAR VOLUME 88 FL (80-99); MEAN PLATELET VOLUME 6.1 FL (6.5-10.1); MONOCYTES % (AUTO) 9.1 % (1.0-10.0); NEUTROPHILS % (AUTO) 75.9 % (45.0-75.0); NITRITE,URINE NEGATIVE (NEGATIVE); PH,URINE 6 (4.5-8.0); PLATELET COUNT 334 K/UL (150-450); PROTEIN,URINE NEGATIVE (NEGATIVE); RED BLOOD COUNT 4.42 M/UL (4.70-6.10); RED CELL DISTRIBUTION WIDTH 10.5 % (11.6-14.8); UROBILINOGEN,URINE NORMAL MG/DL (0.0-1.0); WHITE BLOOD COUNT 12.6 K/UL (4.8-10.8)
[2017-04-21 18:20] VITALS: BP 111/58
[2017-04-21 18:39] LABS: INR 1.4 (0.9-1.1); PROTHROMBIN TIME 14.7 SEC (9.30-11.50)
[2017-04-21 18:40] LABS: RBC,URINE 0-2 /HPF (0 - 0); WBC,URINE 0-2 /HPF (0 - 0)
[2017-04-21 18:51] LABS: ALANINE AMINOTRANSFERASE 24 U/L (12-78); ALBUMIN/GLOBULIN RATIO 0.6 (1.0-2.7); ANION GAP 9 (5-15); ASPARTATE AMINO TRANSFERASE 18 U/L (15-37); CALCIUM 8.9 MG/DL (8.5-10.1); CARBON DIOXIDE 28 MMOL/L (21-32); CHLORIDE 99 MMOL/L (98-107); GLOMERULAR FILTRATION RATE > 60 mL/min (>60); LIPASE 149 U/L (73-393); POTASSIUM 3.8 MMOL/L (3.5-5.1); SODIUM 136 MMOL/L (136-145); TOTAL PROTEIN 7.8 G/DL (6.4-8.2)
[2017-04-21 19:35] VITALS: BP 111/72
[2017-04-21] MEDS ORDERED: metroNIDAZOLE 500mg tab ORAL ONE (20:00)
--- NOTE | 2017-04-21 20:12 | Emergency Room Report ---
History of Present Illness General Chief Complaint: Abdominal Pain Source: Patient Present Illness HPI Patient is a 21 year-old male presented after increased abdominal pain as well as diarrhea. The patient reported having recent appendectomy. Patient said he did well after surgery. Patient denies any recent trauma. He states that he had been having had initially watery diarrhea. She stated he had vomited several times. He had reportedly been on antibiotics several days after surgery. He denies any hematemesis or bloody stools. Allergies: Coded Allergies: No Known Allergies (Unverified , 07/17/12) Patient History Past Medical History: see triage record Reviewed Nursing Documentation: PMH: Agreed, PSxH: Agreed Nursing Documentation-PMH Past Medical History: No History, Except For Hx Asthma: Yes - during childhood Hx Cancer: No Hx Gastrointestinal Problems: No Hx Neurological Problems: No Review of Systems All Other Systems: negative except mentioned in HPI Physical Exam Vital Signs Date Time Temp Pulse Resp B/P (MAP) Pulse Ox O2 Delivery O2 Flow Rate FiO2 04/21/17 17:00 100.8 93 16 117/66 99 Room Air Sp02 EP Interpretation: reviewed, normal General Appearance: normal inspection, well appearing, no apparent distress, alert, GCS 15, non-toxic Head: atraumatic ENT: normal ENT inspection, hearing grossly normal, normal voice Neck: normal inspection, full range of motion, supple, no bony tend Respiratory: normal inspection, lungs clear, normal breath sounds, no respiratory distress, no retraction, no wheezing Cardiovascular #1: regular rate, rhythm, no edema Gastrointestinal: normal inspection, normal bowel sounds, no hernia, tenderness - lower abdomen diffusely Genitourinary: no CVA tenderness Musculoskeletal: normal inspection, back normal, normal range of motion Neurologic: normal inspection, alert, responsive, speech normal Psychiatric: normal inspection, judgement/insight normal, mood/affect normal Skin: normal inspection, normal color, no rash, other - incision c/d/i Medical Decision Making Diagnostic Impression: Primary Impression: Fever Additional Impression: Colitis ER Course Patient presented for abdominal pain. Differential diagnoses included ischemic bowel, appendicitis, perforated viscus, abdominal aortic aneurysm, inferior myocardial infarction, viral gastroenteritis, C. difficile colitis. Because of complexity of patient's case laboratory testing and imaging studies were ordered. Laboratory testing was notable for elevated white blood count. The CT the abdomen pelvis read by radiology showed thick wall low-density collection suggestive of an abscess located centrally and deep in the pelvis measuring 6.2 x 5.5 located anterior to the rectosigmoid, several thick wall small bowel loops in the right lower ordered and pelvis stranding there several mildly prominent right lower quadrant mesenteric nodes presumably reactive. The patient was discussed with Dr Hess for surgical consult. Dr. Marquez was contacted for inpatient managment Labs Test 04/21/17 17:44 04/21/17 18:00 White Blood Count 12.6 K/UL (4.8-10.8) Red Blood Count 4.42 M/UL (4.70-6.10) Hemoglobin 13.1 G/DL (14.2-18.0) Hematocrit 38.9 % (42.0-52.0) Mean Corpuscular Volume 88 FL (80-99) Mean Corpuscular Hemoglobin 29.5 PG (27.0-31.0) Mean Corpuscular Hemoglobin Concent 33.5 G/DL (32.0-36.0) Red Cell Distribution Width 10.5 % (11.6-14.8) Platelet Count 334 K/UL (150-450) Mean Platelet Volume 6.1 FL (6.5-10.1) Neutrophils (%) (Auto) 75.9 % (45.0-75.0) Lymphocytes (%) (Auto) 13.1 % (20.0-45.0) Monocytes (%) (Auto) 9.1 % (1.0-10.0) Eosinophils (%) (Auto) 0.7 % (0.0-3.0) Basophils (%) (Auto) 1.2 % (0.0-2.0) Urine Color Yellow Urine Appearance Clear Urine pH 6 (4.5-8.0) Urine Specific [place] 1.015 (1.005-1.035) Urine Protein Negative (NEGATIVE) Urine Glucose (UA) Negative (NEGATIVE) Urine Ketones Negative (NEGATIVE) Urine Occult Blood 1+ (NEGATIVE) Urine Nitrite Negative (NEGATIVE) Urine Bilirubin Negative (NEGATIVE) Urine Urobilinogen Normal MG/DL (0.0-1.0) Urine Leukocyte Esterase Negative (NEGATIVE) Urine RBC 0-2 /HPF (0 - 0) Urine WBC 0-2 /HPF (0 - 0) Urine Squamous Epithelial Cells None /LPF (NONE/OCC) Urine Bacteria None /HPF (NONE) Sodium Level 136 MMOL/L (136-145) Potassium Level 3.8 MMOL/L (3.5-5.1) Chloride Level 99 MMOL/L (98-107) Carbon Dioxide Level 28 MMOL/L (21-32) Anion Gap 9 (5-15) Blood Urea Nitrogen 9 mg/dL (7-18) Creatinine 1.0 MG/DL (0.55-1.30) Estimat Glomerular Filtration Rate > 60 mL/min (>60) Glucose Level 112 MG/DL (74-106) Calcium Level 8.9 MG/DL (8.5-10.1) Total Bilirubin 0.8 MG/DL (0.2-1.0) Aspartate Amino Transf (AST/SGOT) 18 U/L (15-37) Alanine Aminotransferase (ALT/SGPT) 24 U/L (12-78) Alkaline Phosphatase 81 U/L (46-116) Total Protein 7.8 G/DL (6.4-8.2) Albumin 3.0 G/DL (3.4-5.0) Globulin 4.8 g/dL Albumin/Globulin Ratio 0.6 (1.0-2.7) Lipase 149 U/L (73-393) Prothrombin Time 14.7 SEC (9.30-11.50) Prothromb Time International Ratio 1.4 (0.9-1.1) Activated Partial Thromboplast Time 40 SEC (23-33) Last Vital Signs Date Time Temp Pulse Resp B/P (MAP) Pulse Ox O2 Delivery O2 Flow Rate FiO2 04/21/17 19:35 101.3 78 24 111/72 98 Room Air Status: unchanged Disposition: ADMITTED INPATIENT Condition: Serious Referrals: NOT CHOSEN IPA/,REFERRING (PCP) Herberth Ventura Apr 21, 2017 20:12
[2017-04-21] MEDS ORDERED: Vancomycin 1 GM in NS 275 ML IVPB ONE (20:30)
[2017-04-21] MEDS ORDERED: Vancomycin 1gm inj IVPB ONE (20:31)
[2017-04-21 20:36] VITALS: BP 118/74
[2017-04-21] MEDS ORDERED: Piperacillin/Tazobactam 3.375 GM in NS 110 ML IVPB ONE (20:45)
[2017-04-21] MEDS ORDERED: Zosyn 3.375gm inj ONE (21:01)
[2017-04-21 21:43] VITALS: BP 108/75
[2017-04-21 22:20] VITALS: BP 110/70
--- NOTE | 2017-04-21 22:34 | Infectious Diseases Prog Note ---
Assessment/Plan Problems: (1) Pelvic abscess Assessment & Plan: recommend I&D and fluids to be sent for culture, will start zosyn and vancomycin empirically (2) Sepsis Assessment & Plan: due to the above, will send blood culture and start wide spectrum antibiotics (3) Fever Assessment & Plan: due to the above, continue wide spectrum antibiotics and tylenol Subjective Allergies: Coded Allergies: No Known Allergies (Unverified , 07/17/12) Objective Vital Signs Last 24 Hour Vital Signs Date Time Temp Pulse Resp B/P (MAP) Pulse Ox O2 Delivery O2 Flow Rate FiO2 04/21/17 22:20 98.4 78 18 110/70 99 Room Air 04/21/17 22:20 78 18 110/70 99 Room Air 04/21/17 21:43 98.5 80 20 108/75 98 Room Air 04/21/17 20:43 98.8 04/21/17 20:36 98.8 76 22 118/74 98 Room Air 04/21/17 19:35 101.3 78 24 111/72 98 Room Air 04/21/17 18:20 99.8 83 24 111/58 98 Room Air 04/21/17 17:15 99.9 90 23 112/65 99 Room Air 04/21/17 17:00 100.8 93 16 117/66 99 Room Air Height (Feet): 5 Height (Inches): 10.00 Weight (Pounds): 150 Laboratory Tests Test 04/21/17 17:44 04/21/17 18:00 White Blood Count 12.6 K/UL (4.8-10.8) H Red Blood Count 4.42 M/UL (4.70-6.10) L Hemoglobin 13.1 G/DL (14.2-18.0) L Hematocrit 38.9 % (42.0-52.0) L Mean Corpuscular Volume 88 FL (80-99) Mean Corpuscular Hemoglobin 29.5 PG (27.0-31.0) Mean Corpuscular Hemoglobin Concent 33.5 G/DL (32.0-36.0) Red Cell Distribution Width 10.5 % (11.6-14.8) L Platelet Count 334 K/UL (150-450) Mean Platelet Volume 6.1 FL (6.5-10.1) L Neutrophils (%) (Auto) 75.9 % (45.0-75.0) H Lymphocytes (%) (Auto) 13.1 % (20.0-45.0) L Monocytes (%) (Auto) 9.1 % (1.0-10.0) Eosinophils (%) (Auto) 0.7 % (0.0-3.0) Basophils (%) (Auto) 1.2 % (0.0-2.0) Urine Color Yellow Urine Appearance Clear Urine pH 6 (4.5-8.0) Urine Specific [place] 1.015 (1.005-1.035) Urine Protein Negative (NEGATIVE) Urine Glucose (UA) Negative (NEGATIVE) Urine Ketones Negative (NEGATIVE) Urine Occult Blood 1+ (NEGATIVE) H Urine Nitrite Negative (NEGATIVE) Urine Bilirubin Negative (NEGATIVE) Urine Urobilinogen Normal MG/DL (0.0-1.0) Urine Leukocyte Esterase Negative (NEGATIVE) Urine RBC 0-2 /HPF (0 - 0) H Urine WBC 0-2 /HPF (0 - 0) Urine Squamous Epithelial Cells None /LPF (NONE/OCC) Urine Bacteria None /HPF (NONE) Sodium Level 136 MMOL/L (136-145) Potassium Level 3.8 MMOL/L (3.5-5.1) Chloride Level 99 MMOL/L (98-107) Carbon Dioxide Level 28 MMOL/L (21-32) Anion Gap 9 (5-15) Blood Urea Nitrogen 9 mg/dL (7-18) Creatinine 1.0 MG/DL (0.55-1.30) Estimat Glomerular Filtration Rate > 60 mL/min (>60) Glucose Level 112 MG/DL (74-106) H Calcium Level 8.9 MG/DL (8.5-10.1) Total Bilirubin 0.8 MG/DL (0.2-1.0) Aspartate Amino Transf (AST/SGOT) 18 U/L (15-37) Alanine Aminotransferase (ALT/SGPT) 24 U/L (12-78) Alkaline Phosphatase 81 U/L (46-116) Total Protein 7.8 G/DL (6.4-8.2) Albumin 3.0 G/DL (3.4-5.0) L Globulin 4.8 g/dL Albumin/Globulin Ratio 0.6 (1.0-2.7) L Lipase 149 U/L (73-393) Prothrombin Time 14.7 SEC (9.30-11.50) H Prothromb Time International Ratio 1.4 (0.9-1.1) H Activated Partial Thromboplast Time 40 SEC (23-33) H Current Medications Medications (Trade) Dose Ordered Sig/Edwina Route PRN Reason Start Time Stop Time Status Last Admin Dose Admin Dextrose/Lactated Ringer's 1,000 ml @ 125 mls/hr Q8H IV 04/21/17 22:15 05/21/17 22:14 Gordy Mane M.D. Apr 21, 2017 22:34
[2017-04-22] VITALS (7 sets, daily range): BP systolic 99–120; BP diastolic 56–64
[2017-04-22] MEDS ORDERED: Zosyn 3.375gm inj ONE (05:50)
[2017-04-22] MEDS: Piperacillin/Tazobactam 3.375 GM in D5W 110 ML IVPB SCH ×3 (06:07→22:31)
[2017-04-22] MEDS: Dextrose 5%/Lactated Ringer's 1,000 ML IV SCH (06:30)
[2017-04-22] MEDS ORDERED: Mylanta II UD 30ml ORAL PRN (07:45)
[2017-04-22] MEDS ORDERED: Nitroglycerin Subl 0.4mg tab SL PRN (07:45)
[2017-04-22] MEDS ORDERED: Miralax 17gm pkt ORAL PRN (07:45)
[2017-04-22] MEDS ORDERED: D5 1/2NS 1,000 ML IV SCH (08:00)
--- NOTE | 2017-04-22 08:04 | Consultation ---
History of Present Illness General Date patient seen: Apr 22, 2017 Time patient seen: 07:30 Chief Complaint: Abdominal Pain Referring physician: dr Kapadia Reason for Consultation: inpatient management Present Illness HPI 21y/old male with recent appendectomy 2 weeks ago, no other PMH, presented with abdominal pain , vomiting and diarrhea. patient reported doing well after surgery he denied any trauma or injury He denied hematemesis, hematochezia, melena workup in ED revealed fever-100.8, leukocytosis-12.6, LFT, bili WNL CT A/P revealed 6.2 x 5.5. cm abscess i pelvic area, ileus vs SBO, no free air , and nonspecific proctitis patient was admitted for further management Allergies: Coded Allergies: No Known Allergies (Unverified , 07/17/12) Medication History Scheduled Cephalexin* (Keflex*), 500 MG PO Q6H Naproxen* (Naprosyn*), 375 MG PO BID No Known Medications* (NKM - No Known Medications*), 0 ., (Reported) Scheduled PRN Hydrocodone Bit/Acetaminophen 5-325* ([place] 5-325 Tablet*), 1 TAB ORAL Q4H PRN for For Pain, (Reported) Patient History History Provided By: Patient Healthcare decision maker Resuscitation status Advanced Directive on File Review of Systems Constitutional: Reports: weakness Eye: Reports: no symptoms ENT: Reports: no symptoms Respiratory: Reports: no symptoms Gastrointestinal: Reports: see HPI Genitourinary: Reports: no symptoms Musculoskeletal: Reports: no symptoms Skin: Reports: no symptoms Psychiatric: Reports: no symptoms Neurological: Reports: no symptoms Endocrine: Reports: no symptoms Hematologic/Lymphatic: Reports: no symptoms Physical Exam General Appearance: WD/WN, no apparent distress, alert - A/A/O x 4 young male in NAD Lines, tubes and drains: peripheral HEENT: normocephalic, atraumatic, anicteric, PERRL Neck: non-tender, supple Respiratory/Chest: lungs clear, no respiratory distress, no accessory muscle use Cardiovascular/Chest: normal peripheral pulses, normal rate, regular rhythm Abdomen: normal bowel sounds, soft - mild tenderness on deep palpation lower quadrants, no rebound, no guarding , no organomegaly, no mass Extremities: normal range of motion, non-tender, no calf tenderness, normal capillary refill Skin Exam: normal pigmentation, warm/dry Neurologic: no motor/sensory deficits, alert, oriented x 3, responsive Musculoskeletal: normal muscle bulk Last 24 Hour Vital Signs Date Time Temp Pulse Resp B/P (MAP) Pulse Ox O2 Delivery O2 Flow Rate FiO2 04/22/17 04:10 98.1 65 20 99/56 96 Room Air 04/22/17 00:00 98.2 68 20 104/58 99 Room Air 04/21/17 22:20 98.4 78 18 110/70 99 Room Air 04/21/17 22:20 78 18 110/70 99 Room Air 04/21/17 21:43 98.5 80 20 108/75 98 Room Air 04/21/17 20:43 98.8 04/21/17 20:36 98.8 76 22 118/74 98 Room Air 04/21/17 19:35 101.3 78 24 111/72 98 Room Air 04/21/17 18:20 99.8 83 24 111/58 98 Room Air 04/21/17 17:15 99.9 90 23 112/65 99 Room Air 04/21/17 17:00 100.8 93 16 117/66 99 Room Air Laboratory Tests Test 04/21/17 17:44 04/21/17 18:00 White Blood Count 12.6 K/UL (4.8-10.8) H Red Blood Count 4.42 M/UL (4.70-6.10) L Hemoglobin 13.1 G/DL (14.2-18.0) L Hematocrit 38.9 % (42.0-52.0) L Mean Corpuscular Volume 88 FL (80-99) Mean Corpuscular Hemoglobin 29.5 PG (27.0-31.0) Mean Corpuscular Hemoglobin Concent 33.5 G/DL (32.0-36.0) Red Cell Distribution Width 10.5 % (11.6-14.8) L Platelet Count 334 K/UL (150-450) Mean Platelet Volume 6.1 FL (6.5-10.1) L Neutrophils (%) (Auto) 75.9 % (45.0-75.0) H Lymphocytes (%) (Auto) 13.1 % (20.0-45.0) L Monocytes (%) (Auto) 9.1 % (1.0-10.0) Eosinophils (%) (Auto) 0.7 % (0.0-3.0) Basophils (%) (Auto) 1.2 % (0.0-2.0) Urine Color Yellow Urine Appearance Clear Urine pH 6 (4.5-8.0) Urine Specific [place] 1.015 (1.005-1.035) Urine Protein Negative (NEGATIVE) Urine Glucose (UA) Negative (NEGATIVE) Urine Ketones Negative (NEGATIVE) Urine Occult Blood 1+ (NEGATIVE) H Urine Nitrite Negative (NEGATIVE) Urine Bilirubin Negative (NEGATIVE) Urine Urobilinogen Normal MG/DL (0.0-1.0) Urine Leukocyte Esterase Negative (NEGATIVE) Urine RBC 0-2 /HPF (0 - 0) H Urine WBC 0-2 /HPF (0 - 0) Urine Squamous Epithelial Cells None /LPF (NONE/OCC) Urine Bacteria None /HPF (NONE) Sodium Level 136 MMOL/L (136-145) Potassium Level 3.8 MMOL/L (3.5-5.1) Chloride Level 99 MMOL/L (98-107) Carbon Dioxide Level 28 MMOL/L (21-32) Anion Gap 9 (5-15) Blood Urea Nitrogen 9 mg/dL (7-18) Creatinine 1.0 MG/DL (0.55-1.30) Estimat Glomerular Filtration Rate > 60 mL/min (>60) Glucose Level 112 MG/DL (74-106) H Calcium Level 8.9 MG/DL (8.5-10.1) Total Bilirubin 0.8 MG/DL (0.2-1.0) Aspartate Amino Transf (AST/SGOT) 18 U/L (15-37) Alanine Aminotransferase (ALT/SGPT) 24 U/L (12-78) Alkaline Phosphatase 81 U/L (46-116) Total Protein 7.8 G/DL (6.4-8.2) Albumin 3.0 G/DL (3.4-5.0) L Globulin 4.8 g/dL Albumin/Globulin Ratio 0.6 (1.0-2.7) L Lipase 149 U/L (73-393) Prothrombin Time 14.7 SEC (9.30-11.50) H Prothromb Time International Ratio 1.4 (0.9-1.1) H Activated Partial Thromboplast Time 40 SEC (23-33) H Height (Feet): 5 Height (Inches): 10.00 Weight (Pounds): 150 Medications Current Medications Medications (Trade) Dose Ordered Sig/Edwina Route PRN Reason Start Time Stop Time Status Last Admin Dose Admin Acetaminophen (Tylenol) 650 mg Q4H PRN ORAL fever 04/22/17 07:45 05/22/17 07:44 Al Hydroxide/Mg Hydroxide (Mylanta II) 30 ml Q6H PRN ORAL dyspepsia 04/22/17 07:45 05/22/17 07:44 Dextrose (Dextrose 50%) STAT PRN IV Hypoglycemia 04/22/17 07:45 05/22/17 07:44 Dextrose/Sodium Chloride 1,000 ml @ 75 mls/hr [id number] IV 04/22/17 08:00 05/22/17 07:59 Diphenhydramine HCl (Benadryl) 25 mg Q6H PRN ORAL Itching/Pruritis 04/22/17 07:45 05/22/17 07:44 Heparin Sodium (Porcine) (Heparin 5000 units/ml) 5,000 units EVERY 12 HOURS SUBQ 04/22/17 09:00 05/22/17 08:59 Morphine Sulfate (Morphine Sulfate) 2 mg Q4H PRN IVP severe Pain (Pain Scale 7-10) 04/22/17 07:45 04/29/17 07:44 Nitroglycerin (Ntg) 0.4 mg Q5M X 3 DOSES PRN SL Prn Chest Pain 04/22/17 07:45 05/22/17 07:44 Ondansetron HCl (Zofran) 4 mg Q6H PRN IVP Nausea & Vomiting 04/22/17 07:45 05/22/17 07:44 Pantoprazole (Protonix) 40 mg DAILY IVP 04/22/17 09:00 05/22/17 08:59 Piperacillin Sod/ Tazobactam Sod 3.375 gm/Dextrose 110 ml @ 27.5 mls/hr EVERY 8 HOURS IVPB 04/22/17 06:00 04/27/17 05:59 04/22/17 06:07 Polyethylene Glycol (Miralax) 17 gm HSPRN PRN ORAL Constipation 04/22/17 07:45 05/22/17 07:44 Temazepam (Restoril) 15 mg HSPRN PRN ORAL Insomnia 04/22/17 07:45 04/29/17 07:44 Vancomycin HCl (Vanco rx to dose) 1 ea DAILY PRN MISC Per rx protocol 04/21/17 22:30 05/21/17 22:29 Vancomycin HCl 1 gm/Dextrose 275 ml @ 183.708 mls/hr Q12H IVPB 04/22/17 09:00 04/27/17 08:59 Assessment/Plan Status Narrative ASSESSMENT Assessment/Plan ASSESSMENT possible sepsis pelvic fluid collection, likely abscess nonspecific proctitis. ileus vs SBO s/p recent appendectomy vomiting with diarrhea PLAN OF CARE MS floor IVF NPO abx GI and ID eval will need drainage of abscess by interventional radiology and abx pain management stool C dif a/emetic prn DVT/GI prophayxlis consider surgery eval per PMD case discussed and evaluated by supervising physician Yoni Gloria)Yolanda NP Apr 22, 2017 08:04
[2017-04-22 08:59] LABS: BASOPHILS % (AUTO) 0.8 % (0.0-2.0); EOSINOPHILS % (AUTO) 1.6 % (0.0-3.0); MEAN CORPUSCULAR HEMOGLOBIN 29.6 PG (27.0-31.0); MEAN CORPUSCULAR HGB CONC 33.4 G/DL (32.0-36.0); MEAN CORPUSCULAR VOLUME 89 FL (80-99); MEAN PLATELET VOLUME 6.8 FL (6.5-10.1); MONOCYTES % (AUTO) 10.2 % (1.0-10.0); NEUTROPHILS % (AUTO) 77.5 % (45.0-75.0); PLATELET COUNT 329 K/UL (150-450); RED CELL DISTRIBUTION WIDTH 10.6 % (11.6-14.8); WHITE BLOOD COUNT 10.3 K/UL (4.8-10.8)
[2017-04-22] MEDS ORDERED: Pantoprazole Inj IVP SCH (09:00)
[2017-04-22 09:16] LABS: INR 1.2 (0.9-1.1); PROTHROMBIN TIME 12.2 SEC (9.30-11.50)
--- NOTE | 2017-04-22 09:23 | Diagnostic Imaging Report ---
Indication: Lower pelvic pain. Status post laparoscopic appendectomy on 04/03/2017. Comparison: CT abdomen and pelvis 04/03/2013 Technique: Contiguous helical CT images through the abdomen and pelvis was performed with intravenous contrast only. Oral contrast was not administered. Axial, coronal and sagittal reconstructions were reformatted. CT Dose: Total DLP: 556 mGycm; Total CTDI volume 11.0 Findings: The liver, gallbladder, spleen, pancreas, adrenal glands and kidneys are normal. The patient has intervally undergone appendectomy. There is now a thick walled low density collection suggestive of an abscess located centrally and deep in the pelvis, measuring 6.2 x 6.5 cm on axial image 70, and 4.2 cm in craniocaudal span on sagittal image 35. This is located just anterior to the rectosigmoid, that its demonstrates wall thickening with diffuse perirectal fat stranding and small amount of presacral fluid present, perhaps reactive this is nonspecific proctitis. There are several mildly thick walled small bowel loops in the right lower quadrant and pelvis with surrounding fat stranding. No liver, there is a dilated stool filled small bowel loop measuring 4.5 cm on axial image 47, in the right mid abdomen, just superior to the thick walled small bowel loops, that may be on the basis of a small bowel obstruction versus ileus, perhaps related to adhesions and/or ongoing inflammatory changes. There are several mildly prominent right lower quadrant mesenteric lymph nodes, presumably reactive. No free air. Otherwise no change from prior exam. Impression: Patient has intervally undergone appendectomy. 6.2 x 5.5 x 4.2 cm thickwalled fluid collection in the central lower pelvis, suspicious for abscess, as described above. Several mildly thick walled small bowel loops in the right lower quadrant and pelvis with surrounding fat stranding. This is likely due to ileus and reactive inflammatory changes however other etiologies such as mild small bowel obstruction cannot be entirely excluded. No free air.
[2017-04-22 09:25] LABS: ALANINE AMINOTRANSFERASE 19 U/L (12-78); ALBUMIN/GLOBULIN RATIO 0.6 (1.0-2.7); ASPARTATE AMINO TRANSFERASE 14 U/L (15-37); CALCIUM 9.1 MG/DL (8.5-10.1); CHLORIDE 102 MMOL/L (98-107); CREATININE 0.9 MG/DL (0.55-1.30); GLOMERULAR FILTRATION RATE > 60 mL/min (>60); POTASSIUM 4.1 MMOL/L (3.5-5.1); SODIUM 139 MMOL/L (136-145); TOTAL PROTEIN 7.4 G/DL (6.4-8.2)
[2017-04-22 09:41] LABS: CARBON DIOXIDE 27 MMOL/L (21-32)
[2017-04-22] MEDS: Vancomycin 1gm/D5W 275ml IVPB SCH ×4 (10:27→21:10)
[2017-04-22] MEDS: Heparin 5000 units/ml inj SUBQ SCH ×2 (10:35→21:11)
[2017-04-22] MEDS: D5 1/2NS 1,000 ML IV SCH ×2 (11:40→21:30)
--- NOTE | 2017-04-22 13:49 | Consultation ---
History of Present Illness General Date patient seen: Apr 22, 2017 Chief Complaint: Abdominal Pain Referring physician: dr Kapadia Present Illness HPI 21M with history of lap appy 2 weeks ago presents with 3-4 day worsening lower abdominal pain. As per patient, he did well after discharge from hospital for lap appy and was comfortable until about 3 days ago when he began to have some vague cramping lower abdominal pain. pain progressively worsened and was associated with a few episodes of diarrhea which have since resolved. mild nausea, no emesis. no fever or chills. came to ED for evaluation. CT in ED demonstrated pelvic fluid collection consistent with abscess. Allergies: Coded Allergies: No Known Allergies (Unverified , 07/17/12) Medication History Scheduled Cephalexin* (Keflex*), 500 MG PO Q6H Naproxen* (Naprosyn*), 375 MG PO BID No Known Medications* (NKM - No Known Medications*), 0 ., (Reported) Scheduled PRN Hydrocodone Bit/Acetaminophen 5-325* ([place] 5-325 Tablet*), 1 TAB ORAL Q4H PRN for For Pain, (Reported) Patient History History Provided By: Patient Healthcare decision maker Resuscitation status Advanced Directive on File No Past Medical/Surgical History Past Medical/Surgical History: (1) UTI (urinary tract infection) (2) Fever (3) Colitis (4) Pelvic abscess (5) Sepsis Review of Systems Constitutional: Denies: no symptoms, see HPI, chills, sweats, fever, malaise, weakness, other Eye: Denies: no symptoms, see HPI, eye pain, blurred vision, tearing, double vision, nose pain, nose congestion, acuity changes, discharge, other ENT: Denies: no symptoms, see HPI, ear pain, ear discharge, nose pain, nose congestion, throat pain, throat swelling, mouth pain, hearing loss, nasal discharge, other Respiratory: Denies: no symptoms, see HPI, cough, orthopnea, shortness of breath, stridor, wheezing, IRWIN, sputum, other Cardiovascular: Denies: no symptoms, see HPI, chest pain, edema, palpitations, syncope, PND, other Gastrointestinal: Reports: abdominal pain, diarrhea, nausea Genitourinary: Denies: no symptoms, see HPI, discharge, dysuria, frequency, hematuria, pain, retention, incontinence, urgency, vag bleed/dc, other Musculoskeletal: Denies: no symptoms, see HPI, back pain, gout, joint pain, joint swelling, muscle pain, muscle stiffness, other Skin: Denies: no symptoms, see HPI, rash, change in color, change in hair/nails , dryness, lesions, other Psychiatric: Denies: no symptoms, see HPI, prior hx, anxiety, depressed feelings, emotional problems, SI, HI, hallucinations, other Neurological: Denies: no symptoms, see HPI, headache, numbness, paresthesia, seizure, tingling, tremors, focal weakness, syncope, dizziness, other Endocrine: Denies: no symptoms, see HPI, excessive sweating, flushing, intolerance to temperature, increased thirst, increased urine, unexplained weight loss, other Hematologic/Lymphatic: Denies: no symptoms, see HPI, anemia, blood clots, easy bleeding, easy bruising, swollen glands, diathesis, other Physical Exam General Appearance: no apparent distress, alert Lines, tubes and drains: peripheral HEENT: mucous membranes moist, PERRL Neck: normal inspection Respiratory/Chest: lungs clear, normal breath sounds, no respiratory distress, no accessory muscle use Cardiovascular/Chest: normal peripheral pulses, normal rate Abdomen: normal bowel sounds, soft, no organomegaly, no mass, other - mild tendereness in lower abdomen/pelvis , no rebound ,no guarding, no distention Extremities: normal inspection Skin Exam: warm/dry Neurologic: alert, oriented x 3 Last 24 Hour Vital Signs Date Time Temp Pulse Resp B/P (MAP) Pulse Ox O2 Delivery O2 Flow Rate FiO2 04/22/17 11:42 99.5 75 19 107/64 97 Room Air 04/22/17 09:00 99.0 77 18 111/64 97 Room Air 04/22/17 08:00 99.0 77 18 111/64 97 Room Air 04/22/17 04:10 98.1 65 20 99/56 96 Room Air 04/22/17 00:00 98.2 68 20 104/58 99 Room Air 04/21/17 22:20 98.4 78 18 110/70 99 Room Air 04/21/17 22:20 78 18 110/70 99 Room Air 04/21/17 21:43 98.5 80 20 108/75 98 Room Air 04/21/17 20:43 98.8 04/21/17 20:36 98.8 76 22 118/74 98 Room Air 04/21/17 19:35 101.3 78 24 111/72 98 Room Air 04/21/17 18:20 99.8 83 24 111/58 98 Room Air 04/21/17 17:15 99.9 90 23 112/65 99 Room Air 04/21/17 17:00 100.8 93 16 117/66 99 Room Air Laboratory Tests Test 04/21/17 17:44 04/21/17 18:00 04/22/17 07:52 White Blood Count 12.6 K/UL (4.8-10.8) H 10.3 K/UL (4.8-10.8) Red Blood Count 4.42 M/UL (4.70-6.10) L 4.40 M/UL (4.70-6.10) L Hemoglobin 13.1 G/DL (14.2-18.0) L 13.0 G/DL (14.2-18.0) L Hematocrit 38.9 % (42.0-52.0) L 39.0 % (42.0-52.0) L Mean Corpuscular Volume 88 FL (80-99) 89 FL (80-99) Mean Corpuscular Hemoglobin 29.5 PG (27.0-31.0) 29.6 PG (27.0-31.0) Mean Corpuscular Hemoglobin Concent 33.5 G/DL (32.0-36.0) 33.4 G/DL (32.0-36.0) Red Cell Distribution Width 10.5 % (11.6-14.8) L 10.6 % (11.6-14.8) L Platelet Count 334 K/UL (150-450) 329 K/UL (150-450) Mean Platelet Volume 6.1 FL (6.5-10.1) L 6.8 FL (6.5-10.1) Neutrophils (%) (Auto) 75.9 % (45.0-75.0) H 77.5 % (45.0-75.0) H Lymphocytes (%) (Auto) 13.1 % (20.0-45.0) L 10.0 % (20.0-45.0) L Monocytes (%) (Auto) 9.1 % (1.0-10.0) 10.2 % (1.0-10.0) H Eosinophils (%) (Auto) 0.7 % (0.0-3.0) 1.6 % (0.0-3.0) Basophils (%) (Auto) 1.2 % (0.0-2.0) 0.8 % (0.0-2.0) Urine Color Yellow Urine Appearance Clear Urine pH 6 (4.5-8.0) Urine Specific [place] 1.015 (1.005-1.035) Urine Protein Negative (NEGATIVE) Urine Glucose (UA) Negative (NEGATIVE) Urine Ketones Negative (NEGATIVE) Urine Occult Blood 1+ (NEGATIVE) H Urine Nitrite Negative (NEGATIVE) Urine Bilirubin Negative (NEGATIVE) Urine Urobilinogen Normal MG/DL (0.0-1.0) Urine Leukocyte Esterase Negative (NEGATIVE) Urine RBC 0-2 /HPF (0 - 0) H Urine WBC 0-2 /HPF (0 - 0) Urine Squamous Epithelial Cells None /LPF (NONE/OCC) Urine Bacteria None /HPF (NONE) Sodium Level 136 MMOL/L (136-145) 139 MMOL/L (136-145) Potassium Level 3.8 MMOL/L (3.5-5.1) 4.1 MMOL/L (3.5-5.1) Chloride Level 99 MMOL/L (98-107) 102 MMOL/L (98-107) Carbon Dioxide Level 28 MMOL/L (21-32) 27 MMOL/L (21-32) Anion Gap 9 (5-15) Blood Urea Nitrogen 9 mg/dL (7-18) 7 mg/dL (7-18) Creatinine 1.0 MG/DL (0.55-1.30) 0.9 MG/DL (0.55-1.30) Estimat Glomerular Filtration Rate > 60 mL/min (>60) > 60 mL/min (>60) Glucose Level 112 MG/DL (74-106) H 102 MG/DL (74-106) Calcium Level 8.9 MG/DL (8.5-10.1) 9.1 MG/DL (8.5-10.1) Total Bilirubin 0.8 MG/DL (0.2-1.0) 1.0 MG/DL (0.2-1.0) Aspartate Amino Transf (AST/SGOT) 18 U/L (15-37) 14 U/L (15-37) L Alanine Aminotransferase (ALT/SGPT) 24 U/L (12-78) 19 U/L (12-78) Alkaline Phosphatase 81 U/L (46-116) 74 U/L (46-116) Total Protein 7.8 G/DL (6.4-8.2) 7.4 G/DL (6.4-8.2) Albumin 3.0 G/DL (3.4-5.0) L 2.8 G/DL (3.4-5.0) L Globulin 4.8 g/dL 4.6 g/dL Albumin/Globulin Ratio 0.6 (1.0-2.7) L 0.6 (1.0-2.7) L Lipase 149 U/L (73-393) Prothrombin Time 14.7 SEC (9.30-11.50) H 12.2 SEC (9.30-11.50) H Prothromb Time International Ratio 1.4 (0.9-1.1) H 1.2 (0.9-1.1) H Activated Partial Thromboplast Time 40 SEC (23-33) H 35 SEC (23-33) H Height (Feet): 5 Height (Inches): 10.00 Weight (Pounds): 150 Medications Current Medications Medications (Trade) Dose Ordered Sig/Edwina Route PRN Reason Start Time Stop Time Status Last Admin Dose Admin Acetaminophen (Tylenol) 650 mg Q4H PRN ORAL fever 04/22/17 07:45 05/22/17 07:44 04/22/17 11:41 Al Hydroxide/Mg Hydroxide (Mylanta II) 30 ml Q6H PRN ORAL dyspepsia 04/22/17 07:45 05/22/17 07:44 Dextrose (Dextrose 50%) STAT PRN IV Hypoglycemia 04/22/17 07:45 05/22/17 07:44 Dextrose/Sodium Chloride 1,000 ml @ 100 mls/hr Q10H IV 04/22/17 11:30 05/22/17 11:29 04/22/17 11:40 Diphenhydramine HCl (Benadryl) 25 mg Q6H PRN ORAL Itching/Pruritis 04/22/17 07:45 05/22/17 07:44 Heparin Sodium (Porcine) (Heparin 5000 units/ml) 5,000 units EVERY 12 HOURS SUBQ 04/22/17 09:00 05/22/17 08:59 04/22/17 10:35 Morphine Sulfate (Morphine Sulfate) 2 mg Q4H PRN IVP severe Pain (Pain Scale 7-10) 04/22/17 07:45 04/29/17 07:44 Nitroglycerin (Ntg) 0.4 mg Q5M X 3 DOSES PRN SL Prn Chest Pain 04/22/17 07:45 05/22/17 07:44 Ondansetron HCl (Zofran) 4 mg Q6H PRN IVP Nausea & Vomiting 04/22/17 07:45 05/22/17 07:44 Piperacillin Sod/ Tazobactam Sod 3.375 gm/Dextrose 110 ml @ 27.5 mls/hr EVERY 8 HOURS IVPB 04/22/17 06:00 04/27/17 05:59 04/22/17 06:07 Temazepam (Restoril) 15 mg HSPRN PRN ORAL Insomnia 04/22/17 07:45 04/29/17 07:44 Vancomycin HCl (Vanco rx to dose) 1 ea DAILY PRN MISC Per rx protocol 04/21/17 22:30 05/21/17 22:29 Vancomycin HCl 1 gm/Dextrose 275 ml @ 183.708 mls/hr Q12H IVPB 04/22/17 09:00 04/27/17 08:59 04/22/17 10:27 Assessment/Plan Problem List: (1) Pelvic abscess Assessment & Plan: 21M with pelvic abscess. hx of lap appy two weeks ago. Febrile, HD stable, leukocytosis. CT findings as above. Exam as above -NPO p MN -IV fluids -IV Abx -will discuss with radiology if possible to have interventional radiology place drainage catheter. if not possible will need surgical evacuation of abscess. thank you for this consult. will follow. SNOMED: [id number] Status: stable Hans Hess Apr 22, 2017 13:49
[2017-04-22] MEDS ORDERED: Piperacillin/Tazobactam 3.375 GM in NS 110 ML IVPB SCH (14:00)
--- NOTE | 2017-04-22 16:30 | Consultation ---
DATE OF CONSULTATION: 04/22/2017 GASTROLOGY CONSULTATION CHIEF COMPLAINT: Abdominal pain. HISTORY OF PRESENT ILLNESS: There is a pleasant 21-year-old male, had an appendectomy two weeks ago, came back again with abdominal pain. CT of the abdomen and pelvis in the ER showed evidence of 6.2 x 5.5 centimeter abdominal abscess. The patient was admitted for that. PAST MEDICAL HISTORY: Appendicitis status post surgery two weeks ago. ALLERGIES: No known allergy. MEDICATIONS: Please refer medication reconciliation. SOCIAL HISTORY: The patient denies any tobacco, alcohol, or drug abuse. FAMILY HISTORY: Noncontributory. REVIEW OF SYSTEMS: A 10-point review of systems was performed and pertinent positives in history of present illness. PHYSICAL EXAMINATION: VITAL SIGNS: Temperature is 99 degrees, pulse 77, respirations 18, and blood pressure 118/64. HEENT: Normocephalic and atraumatic. Sclerae anicteric. NECK: Supple. No evidence of obvious lymphadenopathy. CARDIOVASCULAR: Regular rhythm. Plus S1 and S2. LUNGS: Decreased breath sounds bilaterally based on supine exam. ABDOMEN: Bowel sounds are hypoactive. Abdomen is diffusely tender to palpation especially on the left lower quadrant. No rebound. No guarding. No peritoneal sign. EXTREMITIES: No cyanosis. No clubbing. No edema. LABORATORY AND DIAGNOSTIC DATA: White count is 10.3, hemoglobin 13, hematocrit 39, and platelet count is 329. ASSESSMENT: The patient is a 21-year-old male with postoperative two weeks ago for appendicitis, now with abdominal abscess. PLAN: NPO, IV fluids, antibiotics per ID. Order CT-guided drainage of abscess. Discontinue MiraLAX. Discontinue Protonix for now. I want to thank, Dr. Marquez, for this kind referral. Titus Hernández M.D. DR: TERESO JOB#: [id number] CC: Radha Marquez M.D.; Fax#: [phone]
--- NOTE | 2017-04-22 18:00 | History and Physical Report ---
DATE OF ADMISSION: 04/21/2017 TIME SEEN: At 10 a.m. ATTENDING PHYSICIAN: Feliberto Kapadia D.O. for Radha Marquez M.D. CONSULTANTS: 1. Titus Hernández M.D. 2. Tobi Lindsey M.D. 3. Dr. Begum. CHIEF COMPLAINT: Nausea, vomiting, and fever. BRIEF HISTORY: This is a 21-year-old male, who on 04/03/2017 had a laparoscopic cholecystectomy, went home, was fine, but again recently last two days developed nausea, vomiting, fever, and diarrhea. The patient came to the ER, diagnosed with possible sepsis and infection and admitted to medical floor for further treatment. Currently calm in bed, feeling little better. PAST MEDICAL HISTORY: Include cholecystitis. PAST SURGICAL HISTORY: Cholecystectomy. MEDICATIONS: Include vancomycin, heparin, Protonix, morphine, Zofran, and temazepam. ALLERGIES: Denied. SOCIAL HISTORY: No smoke. Occasional alcohol. No intravenous drug use. FAMILY HISTORY: Noncontributory. REVIEW OF SYSTEMS: No chest pain. Slight short of breath. Slight nausea and vomiting. Slight diarrhea. PHYSICAL EXAMINATION: GENERAL: Calm in bed, oriented x3, no acute distress. VITAL SIGNS: Temperature 99, pulse 77, respirations 18, and blood pressure 111/64. CARDIOVASCULAR: No murmur. LUNGS: Distant and clear. ABDOMEN: Bowel sounds are positive. Nontender and nondistended. EXTREMITIES: No cyanosis, clubbing, or edema. NEUROLOGIC: The patient moves all extremities. Slightly weak. LABORATORY DATA: Yesterday white count 12.6 and today 10, hemoglobin and hematocrit 10 and 29, platelets 229,000. BMP shows albumin 2.8, AST 14. INR is 1.2, PTT is 35. Urinalysis shows 1+ occult blood. ASSESSMENT: 1. Nausea. 2. Vomiting. 3. Fever. 4. Possible sepsis. 5. Status post laparoscopic cholecystectomy. 6. Anemia. PLAN: 1. Continue premedications. 2. Antibiotics per Infectious Disease. 3. Dietary followup. 4. Pain control. 5. CBC and BMP in the morning 6. We will continue to follow this patient medically. Feliberto Kapadia D.O. DR: NUPUR JOB#: [id number] CC:
--- NOTE | 2017-04-22 19:17 | Infectious Diseases Prog Note ---
Assessment/Plan Problems: (1) Pelvic abscess Assessment & Plan: recommend I&D for source control, and fluids to be sent for culture, continue zosyn and vancomycin empirically (2) Sepsis Assessment & Plan: due to the above, will send blood culture and start wide spectrum antibiotics (3) Fever Assessment & Plan: due to the above, continue wide spectrum antibiotics and tylenol Subjective Constitutional: Reports: fatigue HEENT: Reports: no symptoms Respiratory: Reports: no symptoms Breasts: Reports: no symptoms Cardiovascular: Reports: no symptoms Gastrointestinal/Abdominal: Reports: bloating, other - pain Genitourinary: Reports: no symptoms Neurologic: Reports: no symptoms Psychiatric: Reports: no symptoms Skin: Reports: no symptoms Endocrine: Reports: no symptoms Allergies: Coded Allergies: No Known Allergies (Unverified , 07/17/12) Objective Vital Signs Last 24 Hour Vital Signs Date Time Temp Pulse Resp B/P (MAP) Pulse Ox O2 Delivery O2 Flow Rate FiO2 04/22/17 16:00 99.3 71 19 120/62 98 Room Air 04/22/17 12:40 99.5 04/22/17 11:42 99.5 75 19 107/64 97 Room Air 04/22/17 09:00 99.0 77 18 111/64 97 Room Air 04/22/17 08:00 99.0 77 18 111/64 97 Room Air 04/22/17 04:10 98.1 65 20 99/56 96 Room Air 04/22/17 00:00 98.2 68 20 104/58 99 Room Air 04/21/17 22:20 98.4 78 18 110/70 99 Room Air 04/21/17 22:20 78 18 110/70 99 Room Air 04/21/17 21:43 98.5 80 20 108/75 98 Room Air 04/21/17 20:43 98.8 04/21/17 20:36 98.8 76 22 118/74 98 Room Air 04/21/17 19:35 101.3 78 24 111/72 98 Room Air Height (Feet): 5 Height (Inches): 10.00 Weight (Pounds): 150 General Appearance: WD/WN, no acute distress HEENT: normocephalic, atraumatic, anicteric, mucous membranes moist, PERRL Respiratory/Chest: chest wall non-tender, lungs clear, normal breath sounds, no respiratory distress, no accessory muscle use Cardiovascular: normal peripheral pulses, normal rate, regular rhythm Abdomen: no organomegaly, no mass, absent bowel sounds, distended, tender Extremities: no cyanosis, no clubbing Skin: no rash, no lesions, no ulcers Neurologic/Psychiatric: alert, oriented x 3, responsive Laboratory Tests Test 04/22/17 07:52 White Blood Count 10.3 K/UL (4.8-10.8) Red Blood Count 4.40 M/UL (4.70-6.10) L Hemoglobin 13.0 G/DL (14.2-18.0) L Hematocrit 39.0 % (42.0-52.0) L Mean Corpuscular Volume 89 FL (80-99) Mean Corpuscular Hemoglobin 29.6 PG (27.0-31.0) Mean Corpuscular Hemoglobin Concent 33.4 G/DL (32.0-36.0) Red Cell Distribution Width 10.6 % (11.6-14.8) L Platelet Count 329 K/UL (150-450) Mean Platelet Volume 6.8 FL (6.5-10.1) Neutrophils (%) (Auto) 77.5 % (45.0-75.0) H Lymphocytes (%) (Auto) 10.0 % (20.0-45.0) L Monocytes (%) (Auto) 10.2 % (1.0-10.0) H Eosinophils (%) (Auto) 1.6 % (0.0-3.0) Basophils (%) (Auto) 0.8 % (0.0-2.0) Prothrombin Time 12.2 SEC (9.30-11.50) H Prothromb Time International Ratio 1.2 (0.9-1.1) H Activated Partial Thromboplast Time 35 SEC (23-33) H Sodium Level 139 MMOL/L (136-145) Potassium Level 4.1 MMOL/L (3.5-5.1) Chloride Level 102 MMOL/L (98-107) Carbon Dioxide Level 27 MMOL/L (21-32) Blood Urea Nitrogen 7 mg/dL (7-18) Creatinine 0.9 MG/DL (0.55-1.30) Estimat Glomerular Filtration Rate > 60 mL/min (>60) Glucose Level 102 MG/DL (74-106) Calcium Level 9.1 MG/DL (8.5-10.1) Total Bilirubin 1.0 MG/DL (0.2-1.0) Aspartate Amino Transf (AST/SGOT) 14 U/L (15-37) L Alanine Aminotransferase (ALT/SGPT) 19 U/L (12-78) Alkaline Phosphatase 74 U/L (46-116) Total Protein 7.4 G/DL (6.4-8.2) Albumin 2.8 G/DL (3.4-5.0) L Globulin 4.6 g/dL Albumin/Globulin Ratio 0.6 (1.0-2.7) L Current Medications Medications (Trade) Dose Ordered Sig/Edwina Route PRN Reason Start Time Stop Time Status Last Admin Dose Admin Acetaminophen (Tylenol) 650 mg Q4H PRN ORAL fever 04/22/17 07:45 05/22/17 07:44 04/22/17 18:10 Al Hydroxide/Mg Hydroxide (Mylanta II) 30 ml Q6H PRN ORAL dyspepsia 04/22/17 07:45 05/22/17 07:44 Dextrose (Dextrose 50%) STAT PRN IV Hypoglycemia 04/22/17 07:45 05/22/17 07:44 Dextrose/Sodium Chloride 1,000 ml @ 100 mls/hr Q10H IV 04/22/17 11:30 05/22/17 11:29 04/22/17 11:40 Diphenhydramine HCl (Benadryl) 25 mg Q6H PRN ORAL Itching/Pruritis 04/22/17 07:45 05/22/17 07:44 Heparin Sodium (Porcine) (Heparin 5000 units/ml) 5,000 units EVERY 12 HOURS SUBQ 04/22/17 09:00 05/22/17 08:59 04/22/17 10:35 Morphine Sulfate (Morphine Sulfate) 2 mg Q4H PRN IVP severe Pain (Pain Scale 7-10) 04/22/17 07:45 04/29/17 07:44 Nitroglycerin (Ntg) 0.4 mg Q5M X 3 DOSES PRN SL Prn Chest Pain 04/22/17 07:45 05/22/17 07:44 Ondansetron HCl (Zofran) 4 mg Q6H PRN IVP Nausea & Vomiting 04/22/17 07:45 05/22/17 07:44 Piperacillin Sod/ Tazobactam Sod 3.375 gm/Dextrose 110 ml @ 27.5 mls/hr EVERY 8 HOURS IVPB 04/22/17 06:00 04/27/17 05:59 04/22/17 14:31 Temazepam (Restoril) 15 mg HSPRN PRN ORAL Insomnia 04/22/17 07:45 04/29/17 07:44 Vancomycin HCl (Vanco rx to dose) 1 ea DAILY PRN MISC Per rx protocol 04/21/17 22:30 05/21/17 22:29 Vancomycin HCl 1 gm/Dextrose 275 ml @ 183.708 mls/hr Q12H IVPB 04/22/17 09:00 04/27/17 08:59 04/22/17 10:27 Gordy Mane M.D. Apr 22, 2017 19:17
--- NOTE | 2017-04-22 22:30 | Consultation ---
DATE OF CONSULTATION: INFECTIOUS DISEASES CONSULTATION REQUESTING PHYSICIAN: Feliberto Kapadia D.O. REASON FOR CONSULTATION: Pelvic abscess. Recommendation for antibiotics therapy with sepsis. HISTORY OF PRESENT ILLNESS: The patient is a 21-year-old male, who was recently discharged from [facility] two weeks ago after he had laparoscopic appendectomy with uncomplicated hospital course, presented tonight with worsening lower abdominal pain and fever with diarrhea. The patient did well after he had his lap cholecystectomy two weeks ago and he was in normal state of health until couple of days ago when he developed abdominal pain, localized in the lower aspect, deep dull pain, get worse with straining and bowel movement. He describes it as 6/10. His pain was associated with diarrhea, but no blood in the stool. His diarrhea has resolved. He had some nausea, but no emesis. The patient denied any fever or chills. Denied any recent travel or sick contact. In the emergency room, the patient had extensive workup including CT scans. CT scan of the abdomen and pelvis, which showed large pelvic fluid collection suspicious for abscess. So, he was admitted to the hospital for further evaluation and management and I was consulted by the primary provider for antibiotics treatment and further care. PAST MEDICAL HISTORY: Significant for cholecystitis status post cholecystectomy two weeks ago, and asthma during childhood. PAST SURGICAL HISTORY: Laparoscopic cholecystectomy two weeks ago. MEDICATIONS: The patient was given vancomycin and Zosyn in the emergency room. For the rest of his medications, please refer to [facility]. ALLERGIES: No known drug allergy. SOCIAL HISTORY: The patient lives with family. No recent drugs, tobacco, or alcohol. FAMILY HISTORY: Noncontributory. REVIEW OF SYSTEMS: A 14-point of system reviewed were all negative apart from the one I mentioned above in my History and Physical. PHYSICAL EXAMINATION: GENERAL: Young male, lying in bed, awake, alert, oriented, not in acute distress. VITAL SIGNS: Temperature 101.3 degrees, pulse 78, respirations 24, blood pressure 111/72, and pulse oximetry 98% on room air. HEENT: Normocephalic and atraumatic. Pupils are reactive to light. Moist oral mucosa. NECK: Supple. No lymphadenopathy. CARDIOVASCULAR: Regular rate and rhythm. No murmur. LUNGS: Clear bilaterally. Diminished breathing sounds at the bases. ABDOMEN: Soft. Tender in the lower aspect. Not distended. Hyperactive bowel sounds. No organomegaly. No ascites. LABORATORY AND DIAGNOSTIC DATA: Labs showed white count 12.6, hemoglobin 13.1, and platelet count of 334. BUN 9 and creatinine 1. AST 18 and ALT 24. Lipase 149. Urinalysis negative for infection. Imaging, abdominal and pelvis CT scan with contrast showed 6.2 x 5.5 x 4.2 centimeter thickened wall fluid collection within the central lower pelvis suspicious for abscess. Several mildly thick wall small bowel loop at the right lower quadrant and pelvis with surrounding fat stranding due to ileus. ASSESSMENT AND RECOMMENDATION: 1. Pelvic abscess. Recommend incision and drainage and fluid to be sent for culture. We will start Zosyn and vancomycin empiric treatment for now. Recommend surgical evaluation. 2. Sepsis due to the above. We will send blood culture and start wide-spectrum antibiotics therapy, pending culture results. 3. Fever due to the above. Continue wide-spectrum antibiotics therapy and Tylenol. Monitor laboratories closely. Thank you for the consult. ID will continue to follow. Gordy Mane M.D. DR: SUMMER JOB#: [id number] CC: WILMER
[2017-04-23] VITALS: BP 103/55
[2017-04-23 03:41] VITALS: BP 102/57
[2017-04-23] MEDS: Piperacillin/Tazobactam 3.375 GM in D5W 110 ML IVPB SCH ×3 (05:59→21:53)
[2017-04-23] MEDS: D5 1/2NS 1,000 ML IV SCH ×2 (07:30→19:03)
[2017-04-23 08:22] VITALS: BP 106/61
[2017-04-23 08:56] LABS: EOSINOPHILS % (AUTO) 2.4 % (0.0-3.0); LYMPHOCYTES % (AUTO) 9.7 % (20.0-45.0); MEAN CORPUSCULAR HEMOGLOBIN 30.2 PG (27.0-31.0); MEAN CORPUSCULAR HGB CONC 34.2 G/DL (32.0-36.0); MEAN CORPUSCULAR VOLUME 88 FL (80-99); MEAN PLATELET VOLUME 6.5 FL (6.5-10.1); MONOCYTES % (AUTO) 7.3 % (1.0-10.0); NEUTROPHILS % (AUTO) 79.6 % (45.0-75.0); PLATELET COUNT 335 K/UL (150-450); RED BLOOD COUNT 4.41 M/UL (4.70-6.10); RED CELL DISTRIBUTION WIDTH 10.5 % (11.6-14.8); WHITE BLOOD COUNT 10.3 K/UL (4.8-10.8)
[2017-04-23] MEDS: Heparin 5000 units/ml inj SUBQ SCH (09:00)
[2017-04-23 09:41] LABS: ALANINE AMINOTRANSFERASE 21 U/L (12-78); ALBUMIN/GLOBULIN RATIO 0.6 (1.0-2.7); AMYLASE 82 U/L (25-115); ANION GAP 10 (5-15); ASPARTATE AMINO TRANSFERASE 13 U/L (15-37); CALCIUM 9.4 MG/DL (8.5-10.1); CARBON DIOXIDE 29 MMOL/L (21-32); CHLORIDE 101 MMOL/L (98-107); GLOMERULAR FILTRATION RATE > 60 mL/min (>60); LIPASE 193 U/L (73-393); POTASSIUM 4.1 MMOL/L (3.5-5.1); SODIUM 140 MMOL/L (136-145); TOTAL PROTEIN 7.8 G/DL (6.4-8.2)
[2017-04-23] MEDS: Vancomycin 1gm/D5W 275ml IVPB SCH ×4 (11:05→19:03)
--- NOTE | 2017-04-23 11:22 | General Progress Note ---
Progress Note Progress Note Surgery: no acute events. doing better. minimal pain. no n/v/f/c. labs improved. exam stable -IR drainage of pelvic abscess soon -cultures from drain aspirate -continue IV Abx -can have clear liquid diet after procedure. -will follow. Hans Hess Apr 23, 2017 11:22
[2017-04-23 12:54] VITALS: BP 105/60
--- NOTE | 2017-04-23 13:29 | GI Progress Note ---
Assessment/Plan Problems: (1) Sepsis ICD Codes: A41.9 - Sepsis, unspecified organism SNOMED: 91706384 (2) Colitis ICD Codes: K52.9 - Noninfective gastroenteritis and colitis, unspecified SNOMED: 13857510 (3) Pelvic abscess SNOMED: 465093839 Status: stable Status Narrative Discussed with Dr. Hernández. Assessment/Plan NPO + IVFs abx fu CT-guided drainage of abscess, ok for diet after procedure. dc miralax and ppi fu labs Subjective Gastrointestinal/Abdominal: Reports: abdominal pain Objective Last 24 Hour Vital Signs Date Time Temp Pulse Resp B/P (MAP) Pulse Ox O2 Delivery O2 Flow Rate FiO2 04/23/17 12:54 98.1 70 18 105/60 100 Room Air 04/23/17 08:22 98.2 66 20 106/61 100 Room Air 04/23/17 03:41 98.1 74 20 102/57 97 Room Air 04/23/17 00:00 98.9 61 18 103/55 99 Room Air 04/22/17 20:00 98.4 18 114/60 99 Room Air 04/22/17 19:09 98.2 04/22/17 16:00 99.3 71 19 120/62 98 Room Air Intake and Output 04/23/17 04/24/17 19:00 07:00 Intake Total 132.5 ml Balance 132.5 ml IV Total 132.5 ml Laboratory Tests Test 04/23/17 08:30 White Blood Count 10.3 K/UL (4.8-10.8) Red Blood Count 4.41 M/UL (4.70-6.10) L Hemoglobin 13.3 G/DL (14.2-18.0) L Hematocrit 38.9 % (42.0-52.0) L Mean Corpuscular Volume 88 FL (80-99) Mean Corpuscular Hemoglobin 30.2 PG (27.0-31.0) Mean Corpuscular Hemoglobin Concent 34.2 G/DL (32.0-36.0) Red Cell Distribution Width 10.5 % (11.6-14.8) L Platelet Count 335 K/UL (150-450) Mean Platelet Volume 6.5 FL (6.5-10.1) Neutrophils (%) (Auto) 79.6 % (45.0-75.0) H Lymphocytes (%) (Auto) 9.7 % (20.0-45.0) L Monocytes (%) (Auto) 7.3 % (1.0-10.0) Eosinophils (%) (Auto) 2.4 % (0.0-3.0) Basophils (%) (Auto) 1.0 % (0.0-2.0) Activated Partial Thromboplast Time 35 SEC (23-33) H Sodium Level 140 MMOL/L (136-145) Potassium Level 4.1 MMOL/L (3.5-5.1) Chloride Level 101 MMOL/L (98-107) Carbon Dioxide Level 29 MMOL/L (21-32) Anion Gap 10 (5-15) Blood Urea Nitrogen 7 mg/dL (7-18) Creatinine 1.0 MG/DL (0.55-1.30) Estimat Glomerular Filtration Rate > 60 mL/min (>60) Glucose Level 106 MG/DL (74-106) Calcium Level 9.4 MG/DL (8.5-10.1) Total Bilirubin 0.8 MG/DL (0.2-1.0) Aspartate Amino Transf (AST/SGOT) 13 U/L (15-37) L Alanine Aminotransferase (ALT/SGPT) 21 U/L (12-78) Alkaline Phosphatase 75 U/L (46-116) Total Protein 7.8 G/DL (6.4-8.2) Albumin 2.9 G/DL (3.4-5.0) L Globulin 4.9 g/dL Albumin/Globulin Ratio 0.6 (1.0-2.7) L Amylase Level 82 U/L (25-115) Lipase 193 U/L (73-393) Vancomycin Level Trough 3.8 ug/mL (5.0-12.0) L Height (Feet): 5 Height (Inches): 10.00 Weight (Pounds): 150 General Appearance: alert Cardiovascular: normal rate Respiratory/Chest: normal breath sounds, no respiratory distress Abdominal Exam: normal bowel sounds, non tender, soft Extremities: normal range of motion Salma Winslow N.PRonda Apr 23, 2017 13:29
[2017-04-23 16:52] VITALS: BP 114/59
--- NOTE | 2017-04-23 18:11 | Pre-Procedure Note/Attestation ---
Pre-Procedure Note/Attestation Complete Prior to Procedure Planned Procedure: not applicable Procedure Narrative: laparoscopic possible open drainage and washout of pelvic / intraabdominal abscess Indications for Procedure Pre-Operative Diagnosis: pelvic abscess Attestation I attest that I discussed the nature of the procedure; its benefits; risks and complications; and alternatives (and the risks and benefits of such alternatives ), prior to the procedure, with the patient (or the patient's legal representative government relations). I attest that, if there was a reasonable possibility of needing a blood transfusion, the patient (or the patient's legal representative government relations) was given the [facility] standardized written summary, pursuant to the Alejandro Denis Blood Safety Act ([place] Health and Safety Code # 1645, as amended). I attest that I re-evaluated the patient just prior to the surgery and that there has been no change in the patient's H&P, except as documented below: Hans Hess Apr 23, 2017 18:11
--- NOTE | 2017-04-23 18:21 | Diagnostic Imaging Report ---
Indication: ABSCESS, for intended reface intervention Technique: Noncontrast localizing spiral acquisitions obtained through the pelvis with the patient prone in anticipation of drainage procedure. Multiplanar reconstructions generated. Total dose length product 279 mGycm. CTDIvol(s) 10 mGy. Dose reduction achieved using automated exposure control Comparison: 04/21/2017 Findings: Prerectal pelvic abscess measuring approximately 5 cm diameter is again confirmed. However, on the localizer slices, a needle that to definitively avoid vascular structures cannot be determined. Also as the bulk of the lesion is located cephalad 2 the performance muscle a needle course that would definitively avoid the sciatic nerve likewise not be determined. It was therefore elected not to proceed with the requested aspiration and drainage Impression: Aspiration and drainage of previously diagnosed pelvic abscess not performed, due to lack of definitively safe access track. Case was discussed by phone with Dr. Hess previously The CT scanner at [facility] is accredited by the [employer] and the scans are performed using protocols designed to limit radiation exposure to as low as reasonably achievable to attain images of sufficient resolution adequate for diagnostic evaluation.
[2017-04-23 20:32] VITALS: BP 146/64
--- NOTE | 2017-04-23 20:32 | General Progress Note ---
Assessment/Plan Problem List: (1) Pelvic abscess SNOMED: 380237527 (2) Sepsis ICD Codes: A41.9 - Sepsis, unspecified organism SNOMED: 42518012 (3) Colitis ICD Codes: K52.9 - Noninfective gastroenteritis and colitis, unspecified SNOMED: 82039124 (4) UTI (urinary tract infection) ICD Codes: N39.0 - Urinary tract infection, site not specified SNOMED: 30029093 (5) Fever ICD Codes: R50.9 - Fever, unspecified SNOMED: 882963179 Status: progressing Assessment/Plan abdominal pain r/o pelvic abscess abx per id afebrile no wheezing decrease in abdominal pain Subjective Gastrointestinal/Abdominal: Reports: abdominal pain Allergies: Coded Allergies: No Known Allergies (Unverified , 07/17/12) Objective Last 24 Hour Vital Signs Date Time Temp Pulse Resp B/P (MAP) Pulse Ox O2 Delivery O2 Flow Rate FiO2 04/23/17 16:52 97.7 73 18 114/59 97 Room Air 04/23/17 12:54 98.1 70 18 105/60 100 Room Air 04/23/17 08:22 98.2 66 20 106/61 100 Room Air 04/23/17 03:41 98.1 74 20 102/57 97 Room Air 04/23/17 00:00 98.9 61 18 103/55 99 Room Air Intake and Output 04/23/17 04/24/17 19:00 07:00 Intake Total 132.5 ml Output Total 600 ml Balance -467.5 ml IV Total 132.5 ml Output Urine Total 600 ml Laboratory Tests 04/23/17 08:30: White Blood Count 10.3, Red Blood Count 4.41L, Hemoglobin 13.3L, Hematocrit 38.9L, Mean Corpuscular Volume 88, Mean Corpuscular Hemoglobin 30.2, Mean Corpuscular Hemoglobin Concent 34.2, Red Cell Distribution Width 10.5L, Platelet Count 335, Mean Platelet Volume 6.5, Neutrophils (%) (Auto) 79.6H, Lymphocytes (%) (Auto) 9.7L, Monocytes (%) (Auto) 7.3, Eosinophils (%) (Auto) 2.4, Basophils (%) (Auto) 1.0, Activated Partial Thromboplast Time 35H, Sodium Level 140, Potassium Level 4.1, Chloride Level 101, Carbon Dioxide Level 29, Anion Gap 10, Blood Urea Nitrogen 7, Creatinine 1.0, Estimat Glomerular Filtration Rate > 60, Glucose Level 106, Calcium Level 9.4, Total Bilirubin 0.8 , Aspartate Amino Transf (AST/SGOT) 13L, Alanine Aminotransferase (ALT/SGPT) 21 , Alkaline Phosphatase 75, Total Protein 7.8, Albumin 2.9L, Globulin 4.9, Albumin/Globulin Ratio 0.6L, Amylase Level 82, Lipase 193, Vancomycin Level Trough 3.8L Height (Feet): 5 Height (Inches): 10.00 Weight (Pounds): 150 Neck: supple Cardiovascular: normal rate Abdomen: non tender, soft - lllll Radha Marquez MD Apr 23, 2017 20:32
--- NOTE | 2017-04-23 23:32 | Infectious Diseases Prog Note ---
Assessment/Plan Problems: (1) Sepsis Assessment & Plan: Due to pelvic abscess. (2) Pelvic abscess Assessment & Plan: Status post drainage. In the setting of recent appendectomy for appendicitis. Subjective Allergies: Coded Allergies: No Known Allergies (Unverified , 07/17/12) Objective Vital Signs Last 24 Hour Vital Signs Date Time Temp Pulse Resp B/P (MAP) Pulse Ox O2 Delivery O2 Flow Rate FiO2 04/23/17 20:32 97.7 76 20 146/64 98 Room Air 04/23/17 16:52 97.7 73 18 114/59 97 Room Air 04/23/17 12:54 98.1 70 18 105/60 100 Room Air 04/23/17 08:22 98.2 66 20 106/61 100 Room Air 04/23/17 03:41 98.1 74 20 102/57 97 Room Air 04/23/17 00:00 98.9 61 18 103/55 99 Room Air Height (Feet): 5 Height (Inches): 10.00 Weight (Pounds): 150 Laboratory Tests Test 04/23/17 08:30 White Blood Count 10.3 K/UL (4.8-10.8) Red Blood Count 4.41 M/UL (4.70-6.10) L Hemoglobin 13.3 G/DL (14.2-18.0) L Hematocrit 38.9 % (42.0-52.0) L Mean Corpuscular Volume 88 FL (80-99) Mean Corpuscular Hemoglobin 30.2 PG (27.0-31.0) Mean Corpuscular Hemoglobin Concent 34.2 G/DL (32.0-36.0) Red Cell Distribution Width 10.5 % (11.6-14.8) L Platelet Count 335 K/UL (150-450) Mean Platelet Volume 6.5 FL (6.5-10.1) Neutrophils (%) (Auto) 79.6 % (45.0-75.0) H Lymphocytes (%) (Auto) 9.7 % (20.0-45.0) L Monocytes (%) (Auto) 7.3 % (1.0-10.0) Eosinophils (%) (Auto) 2.4 % (0.0-3.0) Basophils (%) (Auto) 1.0 % (0.0-2.0) Activated Partial Thromboplast Time 35 SEC (23-33) H Sodium Level 140 MMOL/L (136-145) Potassium Level 4.1 MMOL/L (3.5-5.1) Chloride Level 101 MMOL/L (98-107) Carbon Dioxide Level 29 MMOL/L (21-32) Anion Gap 10 (5-15) Blood Urea Nitrogen 7 mg/dL (7-18) Creatinine 1.0 MG/DL (0.55-1.30) Estimat Glomerular Filtration Rate > 60 mL/min (>60) Glucose Level 106 MG/DL (74-106) Calcium Level 9.4 MG/DL (8.5-10.1) Total Bilirubin 0.8 MG/DL (0.2-1.0) Aspartate Amino Transf (AST/SGOT) 13 U/L (15-37) L Alanine Aminotransferase (ALT/SGPT) 21 U/L (12-78) Alkaline Phosphatase 75 U/L (46-116) Total Protein 7.8 G/DL (6.4-8.2) Albumin 2.9 G/DL (3.4-5.0) L Globulin 4.9 g/dL Albumin/Globulin Ratio 0.6 (1.0-2.7) L Amylase Level 82 U/L (25-115) Lipase 193 U/L (73-393) Vancomycin Level Trough 3.8 ug/mL (5.0-12.0) L Current Medications Medications (Trade) Dose Ordered Sig/Edwina Route PRN Reason Start Time Stop Time Status Last Admin Dose Admin Acetaminophen (Tylenol) 650 mg Q4H PRN ORAL fever 04/22/17 07:45 05/22/17 07:44 04/22/17 18:10 Al Hydroxide/Mg Hydroxide (Mylanta II) 30 ml Q6H PRN ORAL dyspepsia 04/22/17 07:45 05/22/17 07:44 Dextrose (Dextrose 50%) STAT PRN IV Hypoglycemia 04/22/17 07:45 05/22/17 07:44 Dextrose/Sodium Chloride 1,000 ml @ 100 mls/hr Q10H IV 04/22/17 11:30 05/22/17 11:29 04/23/17 19:03 Diphenhydramine HCl (Benadryl) 25 mg Q6H PRN ORAL Itching/Pruritis 04/22/17 07:45 05/22/17 07:44 Morphine Sulfate (Morphine Sulfate) 2 mg Q4H PRN IVP severe Pain (Pain Scale 7-10) 04/22/17 07:45 04/29/17 07:44 Nitroglycerin (Ntg) 0.4 mg Q5M X 3 DOSES PRN SL Prn Chest Pain 04/22/17 07:45 05/22/17 07:44 Ondansetron HCl (Zofran) 4 mg Q6H PRN IVP Nausea & Vomiting 04/22/17 07:45 05/22/17 07:44 Piperacillin Sod/ Tazobactam Sod 3.375 gm/Dextrose 110 ml @ 27.5 mls/hr EVERY 8 HOURS IVPB 04/22/17 06:00 04/27/17 05:59 04/23/17 21:53 Temazepam (Restoril) 15 mg HSPRN PRN ORAL Insomnia 04/22/17 07:45 04/29/17 07:44 Vancomycin HCl (Vanco rx to dose) 1 ea DAILY PRN MISC Per rx protocol 04/21/17 22:30 05/21/17 22:29 Vancomycin HCl 1 gm/Dextrose 275 ml @ 183.708 mls/hr 0200,1000,1800 IVPB 04/23/17 10:30 04/28/17 10:29 04/23/17 19:03 ALEX OCHOA Apr 23, 2017 23:32
[2017-04-24] VITALS (13 sets, daily range): BP systolic 101–131; BP diastolic 56–78
[2017-04-24] MEDS: Vancomycin 1gm/D5W 275ml IVPB SCH ×8 (02:00→19:26)
[2017-04-24] MEDS: D5 1/2NS 1,000 ML IV SCH ×3 (02:13→23:30)
[2017-04-24] MEDS: Piperacillin/Tazobactam 3.375 GM in D5W 110 ML IVPB SCH ×3 (05:14→22:04)
[2017-04-24 07:07] LABS: INR 1.3 (0.9-1.1); PROTHROMBIN TIME 13.2 SEC (9.30-11.50)
[2017-04-24 07:15] LABS: EOSINOPHILS % (AUTO) 5.8 % (0.0-3.0); LYMPHOCYTES % (AUTO) 16.2 % (20.0-45.0); MEAN CORPUSCULAR HEMOGLOBIN 31.1 PG (27.0-31.0); MEAN CORPUSCULAR HGB CONC 35.5 G/DL (32.0-36.0); MEAN CORPUSCULAR VOLUME 88 FL (80-99); MEAN PLATELET VOLUME 6.9 FL (6.5-10.1); MONOCYTES % (AUTO) 12.6 % (1.0-10.0); NEUTROPHILS % (AUTO) 64.3 % (45.0-75.0); PLATELET COUNT 317 K/UL (150-450); RED BLOOD COUNT 4.18 M/UL (4.70-6.10); RED CELL DISTRIBUTION WIDTH 10.5 % (11.6-14.8)
[2017-04-24 07:51] LABS: ANION GAP 10 mmol/L (5-15); CALCIUM 9.7 MG/DL (8.5-10.1); CARBON DIOXIDE 28 MMOL/L (21-32); CHLORIDE 100 MMOL/L (98-107); CREATININE 0.9 MG/DL (0.55-1.30); GLOMERULAR FILTRATION RATE > 60 mL/min (>60); POTASSIUM 3.7 MMOL/L (3.5-5.1); SODIUM 137 MMOL/L (136-145)
[2017-04-24] MEDS ORDERED: Propofol 200mg/20ml IV ONE (13:36)
[2017-04-24] MEDS ORDERED: Zemuron 50mg/5ml Inj IV ONE (13:41)
[2017-04-24] MEDS ORDERED: Lidocaine 1% Plain 30 ml INJ ONE (13:41)
[2017-04-24] MEDS ORDERED: Lidocaine 1% MPF 10mg/ml 5ml ONE (13:41)
[2017-04-24] MEDS ORDERED: fentaNYL 100 mcg/2 mL IV ONE (13:41)
[2017-04-24] MEDS ORDERED: Dexamethasone 4mg/ml vial ONE (13:41)
[2017-04-24] MEDS ORDERED: NS Irrig 1000ml ONE (13:41)
[2017-04-24] MEDS ORDERED: LR 1000ml ONE (13:41)
[2017-04-24] MEDS ORDERED: Neostigmine 1mg/ml 10ml Inj ONE (13:41)
[2017-04-24] MEDS ORDERED: Glycopyrrolate 0.2mg/ml 1ml Vial ONE (13:41)
[2017-04-24] MEDS ORDERED: Bupivacaine w/Epi 0.5% 30ml Vial INJ ONE (13:58)
[2017-04-24] MEDS ORDERED: LR 1000ml 1,000 ML IVLG SCH (14:18)
--- NOTE | 2017-04-24 14:18 | Anethesia Preoperative Eval ---
Anesthesia Pre-op PMH/ROS General Date of Evaluation: Apr 24, 2017 Time of Evaluation: 13:41 Anesthesiologist: Joanie ASA Score: ASA 2 Mallampati Score Class I : Soft palate, uvula, fauces, pillars visible Class II: Soft palate, uvula, fauces visible Class III: Soft palate, base of uvula visible Class IV: Only hard plate visible Mallampati Classification: Class I Surgeon: Jimena Diagnosis: Abd Pain Surgical Procedure: Laparoscopic Drainage of Pelvic Abscess Anesthesia History: none Family History: no anesthesia problems Allergies: Coded Allergies: No Known Allergies (Unverified , 07/17/12) Medications: see eMAR Past Medical History Pulmonary: Reports: asthma Gastrointestinal/Genitourinary: Reports: other - Colitis Hematology/Immune: Reports: anemia PSxH Narrative: Laparoscopic Appendectomy Anesthesia Pre-op Phys. Exam Physician Exam Last Vital Signs Date Time Temp Pulse Resp B/P (MAP) Pulse Ox O2 Delivery O2 Flow Rate FiO2 04/24/17 08:12 97.7 54 18 113/60 100 Room Air Constitutional: NAD Neurologic: CN 2-12 intact Cardiovascular: RRR Respiratory: CTA Gastrointestinal: S/NT/ND Airway Exam Mallampati Score: Class II MO: full ROM: full Teeth: intact Anesthesia Pre-op A/P Labs Hematology Test 04/24/17 04:55 White Blood Count 7.0 K/UL (4.8-10.8) Red Blood Count 4.18 M/UL (4.70-6.10) L Hemoglobin 13.0 G/DL (14.2-18.0) L Hematocrit 36.6 % (42.0-52.0) L Mean Corpuscular Volume 88 FL (80-99) Mean Corpuscular Hemoglobin 31.1 PG (27.0-31.0) H Mean Corpuscular Hemoglobin Concent 35.5 G/DL (32.0-36.0) Red Cell Distribution Width 10.5 % (11.6-14.8) L Platelet Count 317 K/UL (150-450) Mean Platelet Volume 6.9 FL (6.5-10.1) Neutrophils (%) (Auto) 64.3 % (45.0-75.0) Lymphocytes (%) (Auto) 16.2 % (20.0-45.0) L Monocytes (%) (Auto) 12.6 % (1.0-10.0) H Eosinophils (%) (Auto) 5.8 % (0.0-3.0) H Basophils (%) (Auto) 1.0 % (0.0-2.0) Coagulation Test 04/24/17 04:55 Prothrombin Time 13.2 SEC (9.30-11.50) H Prothromb Time International Ratio 1.3 (0.9-1.1) H Chemistry Test 04/24/17 04:55 Sodium Level 137 MMOL/L (136-145) Potassium Level 3.7 MMOL/L (3.5-5.1) Chloride Level 100 MMOL/L (98-107) Carbon Dioxide Level 28 MMOL/L (21-32) Anion Gap 10 mmol/L (5-15) Blood Urea Nitrogen 7 mg/dL (7-18) Creatinine 0.9 MG/DL (0.55-1.30) Estimat Glomerular Filtration Rate > 60 mL/min (>60) Glucose Level 122 MG/DL (74-106) H Calcium Level 9.7 MG/DL (8.5-10.1) Risk Assessment & Plan Assessment: ASA 2 Plan: GA, BIS, Glidescope Status Change Before Surgery: No Pre-Antibiotics Dru Gram Ancef IV Given Within 1 Hr of Incision: Yes Time Given: 13:56 Sourav Nair MD Apr 24, 2017 14:18
--- NOTE | 2017-04-24 14:20 | Immediate Post-Op Evaluation ---
Immediate Post-Op Evalulation Immediate Post-Op Evalulation Procedure: Laparoscopic Drainage of Pelvic Abscess Date of Evaluation: Apr 24, 2017 Time of Evaluation: 16:22 IV Fluids: 900 LR Blood Products: 0 Estimated Blood Loss: 75 Urinary Output: 200 Blood Pressure Systolic: 126 Blood Pressure Diastolic: 75 Pulse Rate: 64 Respiratory Rate: 16 O2 Sat by Pulse Oximetry: 100 Temperature (Fahrenheit): 98.7 Pain Score (1-10): 2 Nausea: No Vomiting: No Complications 0 Patient Status: awake, reacts, patent, extubated, none Hydration Status: adequate Dru Gram Ancef IV Given Within 1 Hr of Incision: Yes Time Given: 13:56 Sourav Nair MD Apr 24, 2017 14:20
[2017-04-24] MEDS ORDERED: Bacitracin 50000 Units Vial IRRIG ONE (14:29)
[2017-04-24] MEDS ORDERED: Hydromorphone 0.5mg/0.5ml inj IVP PRN ×2 (14:30→17:30)
[2017-04-24] MEDS ORDERED: Acetaminophen (Non formulary) 100 ML IV ONE (14:30)
[2017-04-24] MEDS ORDERED: Midazolam 2mg/2ml Inj IVP PRN (14:30)
[2017-04-24] MEDS ORDERED: Norco 5mg/325mg tab ORAL PRN (14:30)
[2017-04-24] MEDS ORDERED: DiphenhydrAMINE 50mg/ml Inj IVP PRN (14:30)
[2017-04-24] MEDS ORDERED: Ketorolac 60mg Inj IV PRN (14:30)
[2017-04-24] MEDS ORDERED: Metoclopramide 10mg/2ml Inj IVP PRN (14:30)
[2017-04-24] MEDS ORDERED: Norco 7.5mg/325mg tab ORAL PRN (14:30)
[2017-04-24] MEDS ORDERED: NeoSporin Gu Irrig 1ml Amp IRRIG ONE (14:30)
[2017-04-24] MEDS ORDERED: LORazepam Inj 2mg/ml 1ml IV PRN (14:30)
[2017-04-24] MEDS ORDERED: oxyCODONE HCL/Acetaminophen 5/325mg ORAL PRN (14:30)
[2017-04-24] MEDS ORDERED: Atropine Inj 1mg/10ml Syr IV PRN (14:30)
[2017-04-24] MEDS ORDERED: Ketorolac 30mg Inj IV PRN ×2 (14:30→16:15)
--- NOTE | 2017-04-24 15:42 | GI Progress Note ---
Assessment/Plan Problems: (1) Sepsis ICD Codes: A41.9 - Sepsis, unspecified organism SNOMED: 54974836 (2) Colitis ICD Codes: K52.9 - Noninfective gastroenteritis and colitis, unspecified SNOMED: 81202750 (3) Pelvic abscess SNOMED: 150251577 Status: stable Status Narrative Discussed with Dr. Hernández. Assessment/Plan fu surgical recs >> laparoscopic possible open drainage and washout of pelvic / intraabdominal abscess today NPO + IVFs abx dc miralax and ppi pain mgmt fu labs Subjective Gastrointestinal/Abdominal: Reports: abdominal pain Objective Last 24 Hour Vital Signs Date Time Temp Pulse Resp B/P (MAP) Pulse Ox O2 Delivery O2 Flow Rate FiO2 04/24/17 12:00 98.2 65 18 124/68 99 Room Air 04/24/17 08:12 97.7 54 18 113/60 100 Room Air 04/24/17 03:44 97.6 54 18 101/56 98 Room Air 04/24/17 00:28 97.5 60 18 114/67 98 Room Air 04/23/17 20:32 97.7 76 20 146/64 98 Room Air 04/23/17 16:52 97.7 73 18 114/59 97 Room Air Intake and Output 04/24/17 04/25/17 19:00 07:00 Intake Total 357.5 ml Output Total 750 ml Balance -392.5 ml IV Total 357.5 ml Output Urine Total 750 ml Laboratory Tests Test 04/24/17 04:55 04/24/17 08:50 White Blood Count 7.0 K/UL (4.8-10.8) Red Blood Count 4.18 M/UL (4.70-6.10) L Hemoglobin 13.0 G/DL (14.2-18.0) L Hematocrit 36.6 % (42.0-52.0) L Mean Corpuscular Volume 88 FL (80-99) Mean Corpuscular Hemoglobin 31.1 PG (27.0-31.0) H Mean Corpuscular Hemoglobin Concent 35.5 G/DL (32.0-36.0) Red Cell Distribution Width 10.5 % (11.6-14.8) L Platelet Count 317 K/UL (150-450) Mean Platelet Volume 6.9 FL (6.5-10.1) Neutrophils (%) (Auto) 64.3 % (45.0-75.0) Lymphocytes (%) (Auto) 16.2 % (20.0-45.0) L Monocytes (%) (Auto) 12.6 % (1.0-10.0) H Eosinophils (%) (Auto) 5.8 % (0.0-3.0) H Basophils (%) (Auto) 1.0 % (0.0-2.0) Prothrombin Time 13.2 SEC (9.30-11.50) H Prothromb Time International Ratio 1.3 (0.9-1.1) H Sodium Level 137 MMOL/L (136-145) Potassium Level 3.7 MMOL/L (3.5-5.1) Chloride Level 100 MMOL/L (98-107) Carbon Dioxide Level 28 MMOL/L (21-32) Anion Gap 10 mmol/L (5-15) Blood Urea Nitrogen 7 mg/dL (7-18) Creatinine 0.9 MG/DL (0.55-1.30) Estimat Glomerular Filtration Rate > 60 mL/min (>60) Glucose Level 122 MG/DL (74-106) H Calcium Level 9.7 MG/DL (8.5-10.1) Vancomycin Level Trough 17.5 ug/mL (5.0-12.0) H Height (Feet): 5 Height (Inches): 10.00 Weight (Pounds): 150 General Appearance: no apparent distress, alert Cardiovascular: normal rate Respiratory/Chest: normal breath sounds, no respiratory distress Abdominal Exam: normal bowel sounds, non tender, soft Extremities: normal range of motion Salma Winslow N.P. Apr 24, 2017 15:42
--- NOTE | 2017-04-24 16:09 | Brief Operative Note ---
Immediate Post Operative Note Operative Note Pre-op Diagnosis: pelvic abscess Procedure: laparoscopic converted to open drainage of pelvic intraabdominal abscess Post-op Diagnosis: same as pre-op Surgeon: david Anesthesiologist: bel Anesthesia: general Specimen: none Complications: none Condition: stable Fluids: see records Estimated Blood Loss: volume - 50 Drains: GARY Implant(s) used?: Hans Joel Apr 24, 2017 16:09
[2017-04-24] MEDS: fentaNYL 100 mcg/2 mL IV PRN ×3 (16:56→17:35)
--- NOTE | 2017-04-24 19:37 | 48 Hour Post Anesthesia Eval ---
Post Anesthesia Evaluation Procedure: Laparoscopic Drainage of Pelvic Abscess Date of Evaluation: Apr 24, 2017 Time of Evaluation: 19:36 Blood Pressure Systolic: 125 0: 69 Pulse Rate: 65 Respiratory Rate: 18 Temperature (Fahrenheit): 97.8 O2 Sat by Pulse Oximetry: 97 Airway: patent Nausea: No Vomiting: No Pain Intensity: 2 Hydration Status: adequate Cardiopulmonary Status: Stable Mental Status/LOC: patient returned to baseline Follow-up Care/Observations: 0 Post-Anesthesia Complications: 0 Follow-up care needed: N/A Sourav Nair MD Apr 24, 2017 19:37
--- NOTE | 2017-04-24 20:26 | General Progress Note ---
Assessment/Plan Problem List: (1) Pelvic abscess SNOMED: 105308836 (2) Sepsis ICD Codes: A41.9 - Sepsis, unspecified organism SNOMED: 44556874 (3) Colitis ICD Codes: K52.9 - Noninfective gastroenteritis and colitis, unspecified SNOMED: 93975591 (4) UTI (urinary tract infection) ICD Codes: N39.0 - Urinary tract infection, site not specified SNOMED: 39186423 (5) Fever ICD Codes: R50.9 - Fever, unspecified SNOMED: 942540219 Status: progressing Assessment/Plan abdominal pain abdominal abscess? abx per id afebrile pain improving reviewed chart and labs Subjective ROS Limited/Unobtainable: Yes Constitutional: Reports: no symptoms Allergies: Coded Allergies: No Known Allergies (Unverified , 07/17/12) Objective Last 24 Hour Vital Signs Date Time Temp Pulse Resp B/P (MAP) Pulse Ox O2 Delivery O2 Flow Rate FiO2 04/24/17 20:00 97.7 70 18 125/66 98 Nasal Cannula 2.0 04/24/17 19:37 65 18 97 04/24/17 18:30 97.8 65 18 125/69 97 Room Air 04/24/17 17:55 97.5 04/24/17 17:30 66 17 131/71 100 Room Air 04/24/17 17:26 98.1 04/24/17 17:15 68 14 125/70 100 Room Air 04/24/17 17:00 69 17 124/64 100 Room Air 04/24/17 16:45 66 15 125/61 100 Room Air 04/24/17 16:30 65 18 127/66 100 Simple Mask 6.0 04/24/17 16:20 66 17 122/69 100 Simple Mask 6.0 04/24/17 16:12 64 16 100 04/24/17 16:11 98.7 64 16 126/78 100 Simple Mask 6.0 04/24/17 12:00 98.2 65 18 124/68 99 Room Air 04/24/17 08:12 97.7 54 18 113/60 100 Room Air 04/24/17 03:44 97.6 54 18 101/56 98 Room Air 04/24/17 00:28 97.5 60 18 114/67 98 Room Air 04/23/17 20:32 97.7 76 20 146/64 98 Room Air Intake and Output 04/24/17 04/25/17 19:00 07:00 Intake Total 707.5 ml Output Total 1050 ml Balance -342.5 ml IV Total 707.5 ml Output Urine Total 1050 ml Laboratory Tests 04/24/17 04:55: White Blood Count 7.0, Red Blood Count 4.18L, Hemoglobin 13.0L, Hematocrit 36.6L , Mean Corpuscular Volume 88, Mean Corpuscular Hemoglobin 31.1H, Mean Corpuscular Hemoglobin Concent 35.5, Red Cell Distribution Width 10.5L, Platelet Count 317, Mean Platelet Volume 6.9, Neutrophils (%) (Auto) 64.3, Lymphocytes (%) (Auto) 16.2L, Monocytes (%) (Auto) 12.6H, Eosinophils (%) (Auto ) 5.8H, Basophils (%) (Auto) 1.0, Prothrombin Time 13.2H, Prothromb Time International Ratio 1.3H, Sodium Level 137, Potassium Level 3.7, Chloride Level 100, Carbon Dioxide Level 28, Anion Gap 10, Blood Urea Nitrogen 7, Creatinine 0.9, Estimat Glomerular Filtration Rate > 60, Glucose Level 122H, Calcium Level 9.7 04/24/17 08:50: Vancomycin Level Trough 17.5H Height (Feet): 5 Height (Inches): 10.00 Weight (Pounds): 150 Cardiovascular: normal rate Respiratory/Chest: lungs clear Radha Marquez MD Apr 24, 2017 20:26
[2017-04-24] MEDS: HYDROmorphone 1mg/ml Carpuject IVP PRN (21:42)
[2017-04-25] VITALS (7 sets, daily range): BP systolic 97–121; BP diastolic 56–71
[2017-04-25] MEDS: Vancomycin 1gm/D5W 275ml IVPB SCH ×6 (02:01→17:19)
[2017-04-25] MEDS: HYDROmorphone 1mg/ml Carpuject IVP PRN ×5 (04:45→20:56)
[2017-04-25] MEDS: Piperacillin/Tazobactam 3.375 GM in D5W 110 ML IVPB SCH ×2 (06:13→13:03)
[2017-04-25 07:46] LABS: BASOPHILS % (AUTO) 0.4 % (0.0-2.0); EOSINOPHILS % (AUTO) 0.3 % (0.0-3.0); LYMPHOCYTES % (AUTO) 8.3 % (20.0-45.0); MEAN CORPUSCULAR HEMOGLOBIN 30.2 PG (27.0-31.0); MEAN CORPUSCULAR HGB CONC 34.4 G/DL (32.0-36.0); MEAN CORPUSCULAR VOLUME 88 FL (80-99); MEAN PLATELET VOLUME 6.7 FL (6.5-10.1); MONOCYTES % (AUTO) 9.8 % (1.0-10.0); NEUTROPHILS % (AUTO) 81.2 % (45.0-75.0); PLATELET COUNT 343 K/UL (150-450); RED BLOOD COUNT 4.39 M/UL (4.70-6.10); RED CELL DISTRIBUTION WIDTH 10.5 % (11.6-14.8); WHITE BLOOD COUNT 14.3 K/UL (4.8-10.8)
[2017-04-25 07:55] LABS: ANION GAP 8 mmol/L (5-15); CALCIUM 9.4 MG/DL (8.5-10.1); CARBON DIOXIDE 29 MMOL/L (21-32); CHLORIDE 103 MMOL/L (98-107); CREATININE 1.2 MG/DL (0.55-1.30); GLOMERULAR FILTRATION RATE > 60 mL/min (>60); POTASSIUM 5.2 MMOL/L (3.5-5.1); SODIUM 140 MMOL/L (136-145)
[2017-04-25] MEDS: D5 1/2NS 1,000 ML IV SCH ×2 (09:17→20:56)
--- NOTE | 2017-04-25 10:38 | General Progress Note ---
Progress Note Progress Note Surgery: doing well. no acute events. pain from incision as anticipated. no n/v/f/c. not ambulatory yet. afebrile, HD stable, labs reviewed. abdomen soft, tender, non disteneded, drain with serosang output -clear liquids -heparin -keep jacobsen in until ambulatory -AM labs. Hans Hess Apr 25, 2017 10:38
--- NOTE | 2017-04-25 12:31 | General Progress Note ---
Assessment/Plan Problem List: (1) Pelvic abscess SNOMED: 100886129 (2) Sepsis ICD Codes: A41.9 - Sepsis, unspecified organism SNOMED: 84366835 (3) Colitis ICD Codes: K52.9 - Noninfective gastroenteritis and colitis, unspecified SNOMED: 77124735 (4) UTI (urinary tract infection) ICD Codes: N39.0 - Urinary tract infection, site not specified SNOMED: 66795984 (5) Fever ICD Codes: R50.9 - Fever, unspecified SNOMED: 158511999 Assessment/Plan abdominal pain still present s/p abdominal surgery reviewed chart and labs Subjective ROS Limited/Unobtainable: Yes Gastrointestinal/Abdominal: Reports: abdominal pain Allergies: Coded Allergies: No Known Allergies (Unverified , 07/17/12) Objective Last 24 Hour Vital Signs Date Time Temp Pulse Resp B/P (MAP) Pulse Ox O2 Delivery O2 Flow Rate FiO2 04/25/17 12:21 98.6 81 18 117/62 97 Room Air 04/25/17 08:40 98.2 65 20 115/69 98 Room Air 04/25/17 04:00 97.6 66 18 112/61 98 Nasal Cannula 2.0 04/25/17 00:00 97.0 64 18 97/56 97 Room Air 04/24/17 20:00 97.7 70 18 125/66 98 Nasal Cannula 2.0 04/24/17 19:37 65 18 97 04/24/17 18:30 97.8 65 18 125/69 97 Room Air 04/24/17 17:55 97.5 04/24/17 17:30 66 17 131/71 100 Room Air 04/24/17 17:26 98.1 04/24/17 17:15 68 14 125/70 100 Room Air 04/24/17 17:00 69 17 124/64 100 Room Air 04/24/17 16:45 66 15 125/61 100 Room Air 04/24/17 16:30 65 18 127/66 100 Simple Mask 6.0 04/24/17 16:20 66 17 122/69 100 Simple Mask 6.0 04/24/17 16:12 64 16 100 04/24/17 16:11 98.7 64 16 126/78 100 Simple Mask 6.0 Laboratory Tests 04/25/17 05:35: White Blood Count 14.3#H, Red Blood Count 4.39L, Hemoglobin 13.3L, Hematocrit 38.5L, Mean Corpuscular Volume 88, Mean Corpuscular Hemoglobin 30.2, Mean Corpuscular Hemoglobin Concent 34.4, Red Cell Distribution Width 10.5L, Platelet Count 343, Mean Platelet Volume 6.7, Neutrophils (%) (Auto) 81.2H, Lymphocytes (%) (Auto) 8.3L, Monocytes (%) (Auto) 9.8, Eosinophils (%) (Auto) 0.3, Basophils (%) (Auto) 0.4, Sodium Level 140, Potassium Level 5.2H, Chloride Level 103, Carbon Dioxide Level 29, Anion Gap 8, Blood Urea Nitrogen 9, Creatinine 1.2, Estimat Glomerular Filtration Rate > 60, Glucose Level 122H, Calcium Level 9.4 Height (Feet): 5 Height (Inches): 10.00 Weight (Pounds): 150 Abdomen: tender Radha Marquez MD Apr 25, 2017 12:31
[2017-04-25] MEDS ORDERED: NS 275ml ONE (15:57)
[2017-04-25] MEDS ORDERED: Tubing IV Secondary IV ONE (15:57)
--- NOTE | 2017-04-25 18:54 | GI Progress Note ---
Assessment/Plan Problems: (1) Sepsis ICD Codes: A41.9 - Sepsis, unspecified organism SNOMED: 02796778 (2) Colitis ICD Codes: K52.9 - Noninfective gastroenteritis and colitis, unspecified SNOMED: 62871678 (3) Pelvic abscess SNOMED: 968434264 Status: stable Status Narrative Discussed with Dr. Hernández. Assessment/Plan surgical recs >> s/p laparoscopic possible open drainage and washout of pelvic / intraabdominal abscess diet per surgery abx dc miralax and ppi pain mgmt fu labs Subjective Gastrointestinal/Abdominal: Reports: abdominal pain Objective Last 24 Hour Vital Signs Date Time Temp Pulse Resp B/P (MAP) Pulse Ox O2 Delivery O2 Flow Rate FiO2 04/25/17 16:11 99.0 81 20 120/71 98 Room Air 04/25/17 12:21 98.6 81 18 117/62 97 Room Air 04/25/17 08:40 98.2 65 20 115/69 98 Room Air 04/25/17 04:00 97.6 66 18 112/61 98 Nasal Cannula 2.0 04/25/17 00:00 97.0 64 18 97/56 97 Room Air 04/24/17 20:00 97.7 70 18 125/66 98 Nasal Cannula 2.0 04/24/17 19:37 65 18 97 Intake and Output 04/25/17 04/26/17 19:00 07:00 Intake Total 1427.5 ml Output Total 1225 ml Balance 202.5 ml Intake Oral 360 ml IV Total 1067.5 ml Output Urine Total 1200 ml Drainage Total 25 ml Laboratory Tests Test 04/25/17 05:35 04/25/17 16:45 White Blood Count 14.3 K/UL (4.8-10.8) #H Red Blood Count 4.39 M/UL (4.70-6.10) L Hemoglobin 13.3 G/DL (14.2-18.0) L Hematocrit 38.5 % (42.0-52.0) L Mean Corpuscular Volume 88 FL (80-99) Mean Corpuscular Hemoglobin 30.2 PG (27.0-31.0) Mean Corpuscular Hemoglobin Concent 34.4 G/DL (32.0-36.0) Red Cell Distribution Width 10.5 % (11.6-14.8) L Platelet Count 343 K/UL (150-450) Mean Platelet Volume 6.7 FL (6.5-10.1) Neutrophils (%) (Auto) 81.2 % (45.0-75.0) H Lymphocytes (%) (Auto) 8.3 % (20.0-45.0) L Monocytes (%) (Auto) 9.8 % (1.0-10.0) Eosinophils (%) (Auto) 0.3 % (0.0-3.0) Basophils (%) (Auto) 0.4 % (0.0-2.0) Sodium Level 140 MMOL/L (136-145) Potassium Level 5.2 MMOL/L (3.5-5.1) H Chloride Level 103 MMOL/L (98-107) Carbon Dioxide Level 29 MMOL/L (21-32) Anion Gap 8 mmol/L (5-15) Blood Urea Nitrogen 9 mg/dL (7-18) Creatinine 1.2 MG/DL (0.55-1.30) Estimat Glomerular Filtration Rate > 60 mL/min (>60) Glucose Level 122 MG/DL (74-106) H Calcium Level 9.4 MG/DL (8.5-10.1) Vancomycin Level Trough 22.8 ug/mL (5.0-12.0) H Height (Feet): 5 Height (Inches): 10.00 Weight (Pounds): 150 General Appearance: WD/WN, no apparent distress, alert Cardiovascular: normal rate Respiratory/Chest: normal breath sounds, no respiratory distress Abdominal Exam: normal bowel sounds, non tender, soft Extremities: normal range of motion, non-tender Salma Winslow NLacey Apr 25, 2017 18:54
[2017-04-25] MEDS: Piperacillin/Tazobactam 3.375 GM in NS 110 ML IVPB SCH (23:15)
--- NOTE | 2017-04-25 23:53 | Infectious Diseases Prog Note ---
Assessment/Plan Problems: (1) Sepsis Assessment & Plan: WBC still elevated. Due to pelvic/intra-abdominal abscess. (2) Pelvic abscess Assessment & Plan: Continue with empiric Zosyn. Try to culture drain fluid. Subjective Allergies: Coded Allergies: No Known Allergies (Unverified , 07/17/12) Objective Vital Signs Last 24 Hour Vital Signs Date Time Temp Pulse Resp B/P (MAP) Pulse Ox O2 Delivery O2 Flow Rate FiO2 04/25/17 19:54 99.0 72 20 121/71 96 Room Air 04/25/17 16:11 99.0 81 20 120/71 98 Room Air 04/25/17 12:21 98.6 81 18 117/62 97 Room Air 04/25/17 08:40 98.2 65 20 115/69 98 Room Air 04/25/17 04:00 97.6 66 18 112/61 98 Nasal Cannula 2.0 04/25/17 00:00 97.0 64 18 97/56 97 Room Air Height (Feet): 5 Height (Inches): 10.00 Weight (Pounds): 150 Laboratory Tests Test 04/25/17 05:35 04/25/17 16:45 White Blood Count 14.3 K/UL (4.8-10.8) #H Red Blood Count 4.39 M/UL (4.70-6.10) L Hemoglobin 13.3 G/DL (14.2-18.0) L Hematocrit 38.5 % (42.0-52.0) L Mean Corpuscular Volume 88 FL (80-99) Mean Corpuscular Hemoglobin 30.2 PG (27.0-31.0) Mean Corpuscular Hemoglobin Concent 34.4 G/DL (32.0-36.0) Red Cell Distribution Width 10.5 % (11.6-14.8) L Platelet Count 343 K/UL (150-450) Mean Platelet Volume 6.7 FL (6.5-10.1) Neutrophils (%) (Auto) 81.2 % (45.0-75.0) H Lymphocytes (%) (Auto) 8.3 % (20.0-45.0) L Monocytes (%) (Auto) 9.8 % (1.0-10.0) Eosinophils (%) (Auto) 0.3 % (0.0-3.0) Basophils (%) (Auto) 0.4 % (0.0-2.0) Sodium Level 140 MMOL/L (136-145) Potassium Level 5.2 MMOL/L (3.5-5.1) H Chloride Level 103 MMOL/L (98-107) Carbon Dioxide Level 29 MMOL/L (21-32) Anion Gap 8 mmol/L (5-15) Blood Urea Nitrogen 9 mg/dL (7-18) Creatinine 1.2 MG/DL (0.55-1.30) Estimat Glomerular Filtration Rate > 60 mL/min (>60) Glucose Level 122 MG/DL (74-106) H Calcium Level 9.4 MG/DL (8.5-10.1) Vancomycin Level Trough 22.8 ug/mL (5.0-12.0) H Current Medications Medications (Trade) Dose Ordered Sig/Edwina Route PRN Reason Start Time Stop Time Status Last Admin Dose Admin Acetaminophen (Tylenol) 650 mg Q4H PRN ORAL fever 04/22/17 07:45 05/22/17 07:44 04/22/17 18:10 Dextrose (Dextrose 50%) STAT PRN IV Hypoglycemia 04/22/17 07:45 05/22/17 07:44 Dextrose/Sodium Chloride 1,000 ml @ 100 mls/hr Q10H IV 04/22/17 11:30 05/22/17 11:29 04/25/17 20:56 Diphenhydramine HCl (Benadryl) 25 mg Q6H PRN ORAL Itching/Pruritis 04/22/17 07:45 05/22/17 07:44 Hydromorphone HCl (Dilaudid) 0.5 mg Q3H PRN IVP Pain Score 1-3 04/24/17 17:30 05/01/17 17:29 Hydromorphone HCl (Dilaudid) 1 mg Q3H PRN IVP pain score 4-6 04/24/17 17:30 05/01/17 17:29 04/25/17 20:56 Hydromorphone HCl (Dilaudid) 2 mg Q3H PRN IVP Pain score 7-10 04/24/17 17:30 05/01/17 17:29 Lansoprazole (Prevacid) 30 mg DAILY ORAL 04/26/17 09:00 05/26/17 08:59 Morphine Sulfate (Morphine Sulfate) 2 mg Q4H PRN IVP severe Pain (Pain Scale 7-10) 04/22/17 07:45 04/29/17 07:44 Nitroglycerin (Ntg) 0.4 mg Q5M X 3 DOSES PRN SL Prn Chest Pain 04/22/17 07:45 05/22/17 07:44 Ondansetron HCl (Zofran) 4 mg Q6H PRN IVP Nausea & Vomiting 04/22/17 07:45 05/22/17 07:44 Piperacillin Sod/ Tazobactam Sod 3.375 gm/Sodium Chloride 110 ml @ 27.5 mls/hr EVERY 8 HOURS IVPB 04/25/17 22:00 05/02/17 21:59 04/25/17 23:15 Temazepam (Restoril) 15 mg HSPRN PRN ORAL Insomnia 04/22/17 07:45 04/29/17 07:44 Vancomycin HCl (Vanco rx to dose) 1 ea DAILY PRN MISC Per rx protocol 04/21/17 22:30 05/21/17 22:29 Vancomycin HCl/ Dextrose 250 ml @ 166.667 mls/hr Q12HR@1000,2200 IVPB 04/26/17 10:00 05/01/17 09:59 ALEX OCHOA Apr 25, 2017 23:53
[2017-04-26] MEDS: HYDROmorphone 1mg/ml Carpuject IVP PRN ×2 (00:18→04:11)
[2017-04-26 04:00] VITALS: BP 114/78
[2017-04-26] MEDS: D5 1/2NS 1,000 ML IV SCH ×2 (05:18→18:48)
[2017-04-26] MEDS: Piperacillin/Tazobactam 3.375 GM in NS 110 ML IVPB SCH ×3 (05:19→22:15)
[2017-04-26 07:58] LABS: BASOPHILS % (AUTO) 0.6 % (0.0-2.0); EOSINOPHILS % (AUTO) 2.2 % (0.0-3.0); MEAN CORPUSCULAR HEMOGLOBIN 30.7 PG (27.0-31.0); MEAN CORPUSCULAR HGB CONC 34.7 G/DL (32.0-36.0); MEAN CORPUSCULAR VOLUME 88 FL (80-99); MEAN PLATELET VOLUME 6.9 FL (6.5-10.1); NEUTROPHILS % (AUTO) 77.1 % (45.0-75.0); PLATELET COUNT 269 K/UL (150-450); RED BLOOD COUNT 3.71 M/UL (4.70-6.10); RED CELL DISTRIBUTION WIDTH 10.8 % (11.6-14.8); WHITE BLOOD COUNT 12.9 K/UL (4.8-10.8)
[2017-04-26 08:00] VITALS: BP 117/67
[2017-04-26 08:26] LABS: MAGNESIUM 1.9 MG/DL (1.8-2.4); PHOSPHORUS 4.4 MG/DL (2.5-4.9); URIC ACID 3.4 MG/DL (2.6-7.2)
[2017-04-26 08:28] LABS: ALANINE AMINOTRANSFERASE 17 U/L (12-78); ALBUMIN/GLOBULIN RATIO 0.6 (1.0-2.7); ANION GAP 9 mmol/L (5-15); ASPARTATE AMINO TRANSFERASE 19 U/L (15-37); CALCIUM 9.1 MG/DL (8.5-10.1); CARBON DIOXIDE 28 MMOL/L (21-32); CHLORIDE 103 MMOL/L (98-107); CREATININE 2.5 MG/DL (0.55-1.30); GLOMERULAR FILTRATION RATE 32.2 mL/min (>60); SODIUM 140 MMOL/L (136-145); TOTAL PROTEIN 6.6 G/DL (6.4-8.2)
--- NOTE | 2017-04-26 08:30 | General Progress Note ---
Progress Note Progress Note Surgery: doing well. no acute events. pain improved. no n/v/f/c. tolerating clears. no flatus or BM yet. afebrile, HD stable, labs improved. leukocytosis trending down. abd soft, nd, mild incisional tenderness. dressings removed and incision c/d/ i. drain with minimal serous output. -d/c jacobsen -keep on clear liquids. DO NOT advance diet yet -decrease IV fluids to 75cc/hr -Ambulate and OOB -continue IV Abx Hans Hess Apr 26, 2017 08:30
[2017-04-26] MEDS ORDERED: D5 1/2NS 1,000 ML IV SCH (09:00)
[2017-04-26] MEDS ORDERED: Vancomycin 1250mg/D5W 250ml 250 ML IVPB SCH (10:00)
[2017-04-26 12:00] VITALS: BP 144/56
[2017-04-26] MEDS: Morphine Sulfate 2mg/ml Inj IVP PRN (12:38)
[2017-04-26 16:00] VITALS: BP 120/60
[2017-04-26] MEDS ORDERED: D5 1/2NS 1000ml IV ONE (16:00)
[2017-04-26] MEDS ORDERED: Tubing IV Secondary IV ONE (16:00)
--- NOTE | 2017-04-26 16:48 | Consultation ---
Consult Note Consult Note asked to eval for rise in Cr sepsis pelvic fluid collection, likely abscess nonspecific proctitis. ileus vs SBO s/p recent appendectomy vomiting with diarrhea Assessment/Plan acute renal failure due to sepsis and antibiotics Plan: urine studies- Kidney RYANN increse IV fluid Hold Vanco- check level adjust Zosyn dose monitor renal parameters IRAIDA CONN Apr 26, 2017 16:48
--- NOTE | 2017-04-26 17:30 | GI Progress Note ---
Assessment/Plan Problems: (1) Sepsis ICD Codes: A41.9 - Sepsis, unspecified organism SNOMED: 86286884 (2) Colitis ICD Codes: K52.9 - Noninfective gastroenteritis and colitis, unspecified SNOMED: 03541128 (3) Pelvic abscess SNOMED: 713188191 Status: progressing Status Narrative Discussed with Dr. Hernández. Assessment/Plan surgical recs >> s/p laparoscopic possible open drainage and washout of pelvic / intraabdominal abscess diet per surgery abx dc miralax and ppi pain mgmt fu labs Subjective Gastrointestinal/Abdominal: Reports: abdominal pain Objective Last 24 Hour Vital Signs Date Time Temp Pulse Resp B/P (MAP) Pulse Ox O2 Delivery O2 Flow Rate FiO2 04/26/17 16:00 98.2 73 19 120/60 98 Room Air 04/26/17 12:00 97.3 68 19 144/56 98 Room Air 04/26/17 08:00 98.1 73 18 117/67 98 Room Air 04/26/17 04:00 97.3 73 18 114/78 97 Room Air 04/25/17 23:58 98.2 113 20 121/61 97 Room Air 04/25/17 19:54 99.0 72 20 121/71 96 Room Air Intake and Output 04/26/17 04/27/17 19:00 07:00 Intake Total 455.0 ml Output Total 675 ml Balance -220.0 ml IV Total 455.0 ml Output Urine Total 675 ml Laboratory Tests Test 04/26/17 04:50 White Blood Count 12.9 K/UL (4.8-10.8) H Red Blood Count 3.71 M/UL (4.70-6.10) L Hemoglobin 11.4 G/DL (14.2-18.0) L Hematocrit 32.8 % (42.0-52.0) L Mean Corpuscular Volume 88 FL (80-99) Mean Corpuscular Hemoglobin 30.7 PG (27.0-31.0) Mean Corpuscular Hemoglobin Concent 34.7 G/DL (32.0-36.0) Red Cell Distribution Width 10.8 % (11.6-14.8) L Platelet Count 269 K/UL (150-450) Mean Platelet Volume 6.9 FL (6.5-10.1) Neutrophils (%) (Auto) 77.1 % (45.0-75.0) H Lymphocytes (%) (Auto) 10.0 % (20.0-45.0) L Monocytes (%) (Auto) 10.0 % (1.0-10.0) Eosinophils (%) (Auto) 2.2 % (0.0-3.0) Basophils (%) (Auto) 0.6 % (0.0-2.0) Sodium Level 140 MMOL/L (136-145) Potassium Level 4.0 MMOL/L (3.5-5.1) Chloride Level 103 MMOL/L (98-107) Carbon Dioxide Level 28 MMOL/L (21-32) Anion Gap 9 mmol/L (5-15) Blood Urea Nitrogen 13 mg/dL (7-18) Creatinine 2.5 MG/DL (0.55-1.30) #H Estimat Glomerular Filtration Rate 32.2 mL/min (>60) Glucose Level 114 MG/DL (74-106) H Uric Acid 3.4 MG/DL (2.6-7.2) Calcium Level 9.1 MG/DL (8.5-10.1) Phosphorus Level 4.4 MG/DL (2.5-4.9) Magnesium Level 1.9 MG/DL (1.8-2.4) Total Bilirubin 0.6 MG/DL (0.2-1.0) Gamma Glutamyl Transpeptidase 35 U/L (5-85) Aspartate Amino Transf (AST/SGOT) 19 U/L (15-37) Alanine Aminotransferase (ALT/SGPT) 17 U/L (12-78) Alkaline Phosphatase 60 U/L (46-116) Total Creatine Kinase 256 U/L (26-308) C-Reactive Protein, Quantitative 42.0 mg/dL (0.00-0.90) H Pro-B-Type Natriuretic Peptide 209 pg/mL (0-125) H Total Protein 6.6 G/DL (6.4-8.2) Albumin 2.4 G/DL (3.4-5.0) L Globulin 4.2 g/dL Albumin/Globulin Ratio 0.6 (1.0-2.7) L Height (Feet): 5 Height (Inches): 10.00 Weight (Pounds): 150 General Appearance: WD/WN, no apparent distress, alert Cardiovascular: normal rate Respiratory/Chest: normal breath sounds, no respiratory distress Abdominal Exam: normal bowel sounds, non tender, soft Extremities: normal range of motion, non-tender Salma Winslow N.P. Apr 26, 2017 17:30
--- NOTE | 2017-04-26 17:57 | General Progress Note ---
Assessment/Plan Problem List: (1) Pelvic abscess SNOMED: 270993619 (2) Sepsis ICD Codes: A41.9 - Sepsis, unspecified organism SNOMED: 63761939 (3) Colitis ICD Codes: K52.9 - Noninfective gastroenteritis and colitis, unspecified SNOMED: 77916186 (4) UTI (urinary tract infection) ICD Codes: N39.0 - Urinary tract infection, site not specified SNOMED: 27917861 (5) Fever ICD Codes: R50.9 - Fever, unspecified SNOMED: 767994459 Status: stable Assessment/Plan afebrile vitals stable s/p abdominal surgery still has abdominal pain Subjective ROS Limited/Unobtainable: Yes Constitutional: Reports: no symptoms Gastrointestinal/Abdominal: Reports: abdominal pain - l Allergies: Coded Allergies: No Known Allergies (Unverified , 07/17/12) Objective Last 24 Hour Vital Signs Date Time Temp Pulse Resp B/P (MAP) Pulse Ox O2 Delivery O2 Flow Rate FiO2 04/26/17 16:00 98.2 73 19 120/60 98 Room Air 04/26/17 12:00 97.3 68 19 144/56 98 Room Air 04/26/17 08:00 98.1 73 18 117/67 98 Room Air 04/26/17 04:00 97.3 73 18 114/78 97 Room Air 04/25/17 23:58 98.2 113 20 121/61 97 Room Air 04/25/17 19:54 99.0 72 20 121/71 96 Room Air Intake and Output 04/26/17 04/27/17 19:00 07:00 Intake Total 455.0 ml Output Total 675 ml Balance -220.0 ml IV Total 455.0 ml Output Urine Total 675 ml Laboratory Tests 04/26/17 04:50: White Blood Count 12.9H, Red Blood Count 3.71L, Hemoglobin 11.4L, Hematocrit 32.8L, Mean Corpuscular Volume 88, Mean Corpuscular Hemoglobin 30.7, Mean Corpuscular Hemoglobin Concent 34.7, Red Cell Distribution Width 10.8L, Platelet Count 269, Mean Platelet Volume 6.9, Neutrophils (%) (Auto) 77.1H, Lymphocytes (%) (Auto) 10.0L, Monocytes (%) (Auto) 10.0, Eosinophils (%) (Auto) 2.2, Basophils (%) (Auto) 0.6, Sodium Level 140, Potassium Level 4.0, Chloride Level 103, Carbon Dioxide Level 28, Anion Gap 9, Blood Urea Nitrogen 13, Creatinine 2.5#H, Estimat Glomerular Filtration Rate 32.2, Glucose Level 114H, Uric Acid 3.4, Calcium Level 9.1, Phosphorus Level 4.4, Magnesium Level 1.9, Total Bilirubin 0.6, Gamma Glutamyl Transpeptidase 35, Aspartate Amino Transf ( AST/SGOT) 19, Alanine Aminotransferase (ALT/SGPT) 17, Alkaline Phosphatase 60, Total Creatine Kinase 256, C-Reactive Protein, Quantitative 42.0H, Pro-B-Type Natriuretic Peptide 209H, Total Protein 6.6, Albumin 2.4L, Globulin 4.2, Albumin /Globulin Ratio 0.6L Height (Feet): 5 Height (Inches): 10.00 Weight (Pounds): 150 Neck: supple Cardiovascular: normal rate Respiratory/Chest: lungs clear Abdomen: soft Radha Marquez MD Apr 26, 2017 17:57
[2017-04-26 19:25] VITALS: BP 120/66
[2017-04-26] MEDS ORDERED: Piperacillin/Tazobactam 2.25 GM in NS 110 ML IVPB SCH (22:00)
[2017-04-27] VITALS (7 sets, daily range): BP systolic 112–129; BP diastolic 61–74
[2017-04-27] MEDS: D5 1/2NS 1,000 ML IV SCH ×3 (03:15→22:34)
[2017-04-27] MEDS: Piperacillin/Tazobactam 3.375 GM in NS 110 ML IVPB SCH ×2 (06:01→13:50)
[2017-04-27 07:03] LABS: BASOPHILS % (AUTO) 0.6 % (0.0-2.0); EOSINOPHILS % (AUTO) 2.4 % (0.0-3.0); LYMPHOCYTES % (AUTO) 7.6 % (20.0-45.0); MEAN CORPUSCULAR HGB CONC 33.9 G/DL (32.0-36.0); MEAN CORPUSCULAR VOLUME 88 FL (80-99); MEAN PLATELET VOLUME 6.9 FL (6.5-10.1); MONOCYTES % (AUTO) 8.7 % (1.0-10.0); NEUTROPHILS % (AUTO) 80.8 % (45.0-75.0); PLATELET COUNT 273 K/UL (150-450); RED BLOOD COUNT 3.68 M/UL (4.70-6.10)
[2017-04-27 07:59] LABS: ALANINE AMINOTRANSFERASE 19 U/L (12-78); ALBUMIN/GLOBULIN RATIO 0.6 (1.0-2.7); ANION GAP 9 mmol/L (5-15); ASPARTATE AMINO TRANSFERASE 23 U/L (15-37); CARBON DIOXIDE 28 MMOL/L (21-32); CHLORIDE 103 MMOL/L (98-107); CREATININE 2.5 MG/DL (0.55-1.30); CRP QUANT 11.7 mg/dL (0.00-0.90); GLOMERULAR FILTRATION RATE 32.2 mL/min (>60); PHOSPHORUS 4.1 MG/DL (2.5-4.9); POTASSIUM 3.7 MMOL/L (3.5-5.1); SODIUM 140 MMOL/L (136-145); TOTAL PROTEIN 6.6 G/DL (6.4-8.2); URIC ACID 3.3 MG/DL (2.6-7.2)
--- NOTE | 2017-04-27 10:08 | Diagnostic Imaging Report ---
Indication: Acute renal failure, elevated renal function tests Technique: Grayscale and duplex images of the kidneys, retroperitoneum, and bladder were obtained. Comparison:Reference made to abdomen pelvis CT 04/21/2013 Findings: Right kidney measures 12.9 cm in length. Left kidney measures 11.9 cm in length. Both kidneys demonstrate equivocally mildly increased echogenicity. No hydronephrosis. No focal abnormality. Normal inferior vena cava. Bladder is not visualized, due to overlying bandages obstructing visualization. Impression: Negative for hydronephrosis Equivocal increased renal echogenicity, if real could indicate medical renal disease. Correlate with clinical findings
--- NOTE | 2017-04-27 11:16 | General Progress Note ---
Assessment/Plan Problem List: (1) Pelvic abscess SNOMED: 442225136 (2) Sepsis ICD Codes: A41.9 - Sepsis, unspecified organism SNOMED: 07086641 (3) Colitis ICD Codes: K52.9 - Noninfective gastroenteritis and colitis, unspecified SNOMED: 78577034 (4) UTI (urinary tract infection) ICD Codes: N39.0 - Urinary tract infection, site not specified SNOMED: 68574133 (5) Fever ICD Codes: R50.9 - Fever, unspecified SNOMED: 753756134 Status: progressing Assessment/Plan no fever abx per id s/p abdominal surgery still has abdominal pain Subjective Gastrointestinal/Abdominal: Reports: abdominal pain Allergies: Coded Allergies: No Known Allergies (Unverified , 07/17/12) Objective Last 24 Hour Vital Signs Date Time Temp Pulse Resp B/P (MAP) Pulse Ox O2 Delivery O2 Flow Rate FiO2 04/27/17 08:00 98.2 100 18 129/67 100 Room Air 04/27/17 05:04 97.7 04/27/17 03:31 97.7 69 20 124/72 97 Room Air 04/27/17 00:05 99.1 65 20 112/71 97 Room Air 04/26/17 19:25 98.1 72 20 120/66 99 Room Air 04/26/17 16:00 98.2 73 19 120/60 98 Room Air 04/26/17 12:00 97.3 68 19 144/56 98 Room Air Intake and Output 04/27/17 04/28/17 19:00 07:00 Intake Total 327.5 ml Balance 327.5 ml IV Total 327.5 ml Laboratory Tests 04/26/17 18:34: Urine Random Sodium 46 04/27/17 02:10: Urine Eosinophils None seen 04/27/17 05:35: White Blood Count 13.0H, Red Blood Count 3.68L, Hemoglobin 11.0L, Hematocrit 32.5L, Mean Corpuscular Volume 88, Mean Corpuscular Hemoglobin 30.0, Mean Corpuscular Hemoglobin Concent 33.9, Red Cell Distribution Width 11.0L, Platelet Count 273, Mean Platelet Volume 6.9, Neutrophils (%) (Auto) 80.8H, Lymphocytes (%) (Auto) 7.6L, Monocytes (%) (Auto) 8.7, Eosinophils (%) (Auto) 2.4, Basophils (%) (Auto) 0.6, Sodium Level 140, Potassium Level 3.7, Chloride Level 103, Carbon Dioxide Level 28, Anion Gap 9, Blood Urea Nitrogen 11, Creatinine 2.5H, Estimat Glomerular Filtration Rate 32.2, Glucose Level 128H, Uric Acid 3.3, Calcium Level 9.0, Phosphorus Level 4.1, Magnesium Level 2.0, Total Bilirubin 0.5, Gamma Glutamyl Transpeptidase 54, Aspartate Amino Transf ( AST/SGOT) 23, Alanine Aminotransferase (ALT/SGPT) 19, Alkaline Phosphatase 70, Total Creatine Kinase 210, C-Reactive Protein, Quantitative 11.7H, Pro-B-Type Natriuretic Peptide 556H, Total Protein 6.6, Albumin 2.4L, Globulin 4.2, Albumin /Globulin Ratio 0.6L, Random Vancomycin Level 7.8 Height (Feet): 5 Height (Inches): 10.00 Weight (Pounds): 150 Abdomen: tender Radha Marquez MD Apr 27, 2017 11:16
--- NOTE | 2017-04-27 11:20 | GI Progress Note ---
Assessment/Plan Problems: (1) Sepsis ICD Codes: A41.9 - Sepsis, unspecified organism SNOMED: 76475093 (2) Colitis ICD Codes: K52.9 - Noninfective gastroenteritis and colitis, unspecified SNOMED: 06829037 (3) Pelvic abscess SNOMED: 186487128 Status: stable Status Narrative Discussed with Dr. Hernández. Assessment/Plan surgical recs >> s/p laparoscopic possible open drainage and washout of pelvic / intraabdominal abscess diet per surgery abx dc miralax and ppi pain mgmt fu labs Subjective Gastrointestinal/Abdominal: Reports: abdominal pain Objective Last 24 Hour Vital Signs Date Time Temp Pulse Resp B/P (MAP) Pulse Ox O2 Delivery O2 Flow Rate FiO2 04/27/17 08:00 98.2 100 18 129/67 100 Room Air 04/27/17 05:04 97.7 04/27/17 03:31 97.7 69 20 124/72 97 Room Air 04/27/17 00:05 99.1 65 20 112/71 97 Room Air 04/26/17 19:25 98.1 72 20 120/66 99 Room Air 04/26/17 16:00 98.2 73 19 120/60 98 Room Air 04/26/17 12:00 97.3 68 19 144/56 98 Room Air Intake and Output 04/27/17 04/28/17 19:00 07:00 Intake Total 327.5 ml Balance 327.5 ml IV Total 327.5 ml Laboratory Tests Test 04/26/17 18:34 04/27/17 02:10 04/27/17 05:35 Urine Random Sodium 46 MEQ/L (20-110) Urine Eosinophils None seen White Blood Count 13.0 K/UL (4.8-10.8) H Red Blood Count 3.68 M/UL (4.70-6.10) L Hemoglobin 11.0 G/DL (14.2-18.0) L Hematocrit 32.5 % (42.0-52.0) L Mean Corpuscular Volume 88 FL (80-99) Mean Corpuscular Hemoglobin 30.0 PG (27.0-31.0) Mean Corpuscular Hemoglobin Concent 33.9 G/DL (32.0-36.0) Red Cell Distribution Width 11.0 % (11.6-14.8) L Platelet Count 273 K/UL (150-450) Mean Platelet Volume 6.9 FL (6.5-10.1) Neutrophils (%) (Auto) 80.8 % (45.0-75.0) H Lymphocytes (%) (Auto) 7.6 % (20.0-45.0) L Monocytes (%) (Auto) 8.7 % (1.0-10.0) Eosinophils (%) (Auto) 2.4 % (0.0-3.0) Basophils (%) (Auto) 0.6 % (0.0-2.0) Sodium Level 140 MMOL/L (136-145) Potassium Level 3.7 MMOL/L (3.5-5.1) Chloride Level 103 MMOL/L (98-107) Carbon Dioxide Level 28 MMOL/L (21-32) Anion Gap 9 mmol/L (5-15) Blood Urea Nitrogen 11 mg/dL (7-18) Creatinine 2.5 MG/DL (0.55-1.30) H Estimat Glomerular Filtration Rate 32.2 mL/min (>60) Glucose Level 128 MG/DL (74-106) H Uric Acid 3.3 MG/DL (2.6-7.2) Calcium Level 9.0 MG/DL (8.5-10.1) Phosphorus Level 4.1 MG/DL (2.5-4.9) Magnesium Level 2.0 MG/DL (1.8-2.4) Total Bilirubin 0.5 MG/DL (0.2-1.0) Gamma Glutamyl Transpeptidase 54 U/L (5-85) Aspartate Amino Transf (AST/SGOT) 23 U/L (15-37) Alanine Aminotransferase (ALT/SGPT) 19 U/L (12-78) Alkaline Phosphatase 70 U/L (46-116) Total Creatine Kinase 210 U/L (26-308) C-Reactive Protein, Quantitative 11.7 mg/dL (0.00-0.90) H Pro-B-Type Natriuretic Peptide 556 pg/mL (0-125) H Total Protein 6.6 G/DL (6.4-8.2) Albumin 2.4 G/DL (3.4-5.0) L Globulin 4.2 g/dL Albumin/Globulin Ratio 0.6 (1.0-2.7) L Random Vancomycin Level 7.8 ug/mL Height (Feet): 5 Height (Inches): 10.00 Weight (Pounds): 150 General Appearance: WD/WN, no apparent distress, alert Cardiovascular: normal rate Respiratory/Chest: normal breath sounds, no respiratory distress Abdominal Exam: normal bowel sounds, non tender, soft Extremities: normal range of motion, non-tender Salma Winslow N.P. Apr 27, 2017 11:20
[2017-04-27] MEDS: Morphine Sulfate 2mg/ml Inj IVP PRN (11:50)
--- NOTE | 2017-04-27 13:45 | General Progress Note ---
Progress Note Progress Note Surgery: doing well. no acute events. pain improved. no n/v/f/c. tolerating clears. no flatus or BM yet. ambulatory. good uop afebrile, HD stable, leukocytosis 13k abd soft, nd, incisional tenderness, drain with serous output, incisions c/d/i -keep on clear liquids -awaiting return of bowel function -ambulate and oob -continue ABX Hans Hess Apr 27, 2017 13:45
[2017-04-27] MEDS ORDERED: D5 1/2NS 1,000 ML IV SCH (14:00)
--- NOTE | 2017-04-27 15:12 | General Progress Note ---
Assessment/Plan Status: unchanged Status Narrative Cr 2.5 for second day Assessment/Plan acute renal failure due to sepsis and antibiotics Plan: urine studies- Kidney RYANN negative for hydro increse IV fluid Hold Vanco- check level is 7 ! adjust Zosyn dose monitor renal parameters Subjective ROS Limited/Unobtainable: No Constitutional: Reports: malaise, weakness Allergies: Coded Allergies: No Known Allergies (Unverified , 07/17/12) Objective Last 24 Hour Vital Signs Date Time Temp Pulse Resp B/P (MAP) Pulse Ox O2 Delivery O2 Flow Rate FiO2 04/27/17 12:00 98.2 67 18 129/68 98 Room Air 04/27/17 08:00 98.2 100 18 129/67 100 Room Air 04/27/17 05:04 97.7 04/27/17 03:31 97.7 69 20 124/72 97 Room Air 04/27/17 00:05 99.1 65 20 112/71 97 Room Air 04/26/17 19:25 98.1 72 20 120/66 99 Room Air 04/26/17 16:00 98.2 73 19 120/60 98 Room Air Intake and Output 04/27/17 04/28/17 19:00 07:00 Intake Total 327.5 ml Balance 327.5 ml IV Total 327.5 ml Laboratory Tests 04/26/17 18:34: Urine Random Sodium 46 04/27/17 02:10: Urine Eosinophils None seen 04/27/17 05:35: White Blood Count 13.0H, Red Blood Count 3.68L, Hemoglobin 11.0L, Hematocrit 32.5L, Mean Corpuscular Volume 88, Mean Corpuscular Hemoglobin 30.0, Mean Corpuscular Hemoglobin Concent 33.9, Red Cell Distribution Width 11.0L, Platelet Count 273, Mean Platelet Volume 6.9, Neutrophils (%) (Auto) 80.8H, Lymphocytes (%) (Auto) 7.6L, Monocytes (%) (Auto) 8.7, Eosinophils (%) (Auto) 2.4, Basophils (%) (Auto) 0.6, Sodium Level 140, Potassium Level 3.7, Chloride Level 103, Carbon Dioxide Level 28, Anion Gap 9, Blood Urea Nitrogen 11, Creatinine 2.5H, Estimat Glomerular Filtration Rate 32.2, Glucose Level 128H, Uric Acid 3.3, Calcium Level 9.0, Phosphorus Level 4.1, Magnesium Level 2.0, Total Bilirubin 0.5, Gamma Glutamyl Transpeptidase 54, Aspartate Amino Transf ( AST/SGOT) 23, Alanine Aminotransferase (ALT/SGPT) 19, Alkaline Phosphatase 70, Total Creatine Kinase 210, C-Reactive Protein, Quantitative 11.7H, Pro-B-Type Natriuretic Peptide 556H, Total Protein 6.6, Albumin 2.4L, Globulin 4.2, Albumin /Globulin Ratio 0.6L, Random Vancomycin Level 7.8 Height (Feet): 5 Height (Inches): 10.00 Weight (Pounds): 150 General Appearance: no apparent distress, lethargic Cardiovascular: normal rate Respiratory/Chest: lungs clear Abdomen: other - dressed IRAIDA CONN Apr 27, 2017 15:12
[2017-04-27] MEDS ORDERED: Hydromorphone 0.5mg/0.5ml inj IVP PRN (19:00)
[2017-04-27] MEDS ORDERED: Tubing IV Secondary IV ONE (21:48)
[2017-04-27] MEDS ORDERED: NS 500ML IV ONE (21:48)
[2017-04-27] MEDS ORDERED: D5 1/2NS 1000ml IV ONE (21:48)
[2017-04-27] MEDS: Zosyn 3.375gm q8h **Extended infusion IVPB SCH (22:18)
--- NOTE | 2017-04-27 23:15 | Infectious Diseases Prog Note ---
Assessment/Plan Problems: (1) Sepsis Assessment & Plan: WBC still elevated. Due to pelvic/intra-abdominal abscess. (2) Pelvic abscess Assessment & Plan: Continue with empiric Zosyn. Try to culture drain fluid. Now off vancomycin IV. Consider repeat CT. (3) THEA (acute kidney injury) Assessment & Plan: Due to vancomycin? Sepsis? Subjective Allergies: Coded Allergies: No Known Allergies (Unverified , 07/17/12) Objective Vital Signs Last 24 Hour Vital Signs Date Time Temp Pulse Resp B/P (MAP) Pulse Ox O2 Delivery O2 Flow Rate FiO2 04/27/17 20:01 96.8 04/27/17 19:48 96.8 60 19 127/74 98 Room Air 04/27/17 16:00 98.4 69 18 126/73 98 Room Air 04/27/17 12:00 98.2 67 18 129/68 98 Room Air 04/27/17 08:00 98.2 100 18 129/67 100 Room Air 04/27/17 03:31 97.7 69 20 124/72 97 Room Air 04/27/17 00:05 99.1 65 20 112/71 97 Room Air Height (Feet): 5 Height (Inches): 10.00 Weight (Pounds): 150 Laboratory Tests Test 04/27/17 02:10 04/27/17 05:35 Urine Eosinophils None seen White Blood Count 13.0 K/UL (4.8-10.8) H Red Blood Count 3.68 M/UL (4.70-6.10) L Hemoglobin 11.0 G/DL (14.2-18.0) L Hematocrit 32.5 % (42.0-52.0) L Mean Corpuscular Volume 88 FL (80-99) Mean Corpuscular Hemoglobin 30.0 PG (27.0-31.0) Mean Corpuscular Hemoglobin Concent 33.9 G/DL (32.0-36.0) Red Cell Distribution Width 11.0 % (11.6-14.8) L Platelet Count 273 K/UL (150-450) Mean Platelet Volume 6.9 FL (6.5-10.1) Neutrophils (%) (Auto) 80.8 % (45.0-75.0) H Lymphocytes (%) (Auto) 7.6 % (20.0-45.0) L Monocytes (%) (Auto) 8.7 % (1.0-10.0) Eosinophils (%) (Auto) 2.4 % (0.0-3.0) Basophils (%) (Auto) 0.6 % (0.0-2.0) Sodium Level 140 MMOL/L (136-145) Potassium Level 3.7 MMOL/L (3.5-5.1) Chloride Level 103 MMOL/L (98-107) Carbon Dioxide Level 28 MMOL/L (21-32) Anion Gap 9 mmol/L (5-15) Blood Urea Nitrogen 11 mg/dL (7-18) Creatinine 2.5 MG/DL (0.55-1.30) H Estimat Glomerular Filtration Rate 32.2 mL/min (>60) Glucose Level 128 MG/DL (74-106) H Uric Acid 3.3 MG/DL (2.6-7.2) Calcium Level 9.0 MG/DL (8.5-10.1) Phosphorus Level 4.1 MG/DL (2.5-4.9) Magnesium Level 2.0 MG/DL (1.8-2.4) Total Bilirubin 0.5 MG/DL (0.2-1.0) Gamma Glutamyl Transpeptidase 54 U/L (5-85) Aspartate Amino Transf (AST/SGOT) 23 U/L (15-37) Alanine Aminotransferase (ALT/SGPT) 19 U/L (12-78) Alkaline Phosphatase 70 U/L (46-116) Total Creatine Kinase 210 U/L (26-308) C-Reactive Protein, Quantitative 11.7 mg/dL (0.00-0.90) H Pro-B-Type Natriuretic Peptide 556 pg/mL (0-125) H Total Protein 6.6 G/DL (6.4-8.2) Albumin 2.4 G/DL (3.4-5.0) L Globulin 4.2 g/dL Albumin/Globulin Ratio 0.6 (1.0-2.7) L Random Vancomycin Level 7.8 ug/mL Current Medications Medications (Trade) Dose Ordered Sig/Edwina Route PRN Reason Start Time Stop Time Status Last Admin Dose Admin Acetaminophen (Tylenol) 650 mg Q4H PRN ORAL fever 04/22/17 07:45 05/22/17 07:44 04/22/17 18:10 Dextrose (Dextrose 50%) STAT PRN IV Hypoglycemia 04/22/17 07:45 05/22/17 07:44 Dextrose/Sodium Chloride 1,000 ml @ 100 mls/hr Q10H IV 04/28/17 15:30 05/28/17 15:29 04/27/17 22:34 Diphenhydramine HCl (Benadryl) 25 mg Q6H PRN ORAL Itching/Pruritis 04/22/17 07:45 05/22/17 07:44 Hydromorphone HCl (Dilaudid) 0.5 mg Q3H PRN IVP Pain Score 1-3 04/24/17 17:30 05/01/17 17:29 Hydromorphone HCl (Dilaudid) 1 mg Q3H PRN IVP pain score 4-6 04/27/17 19:00 05/01/17 17:29 Hydromorphone HCl (Dilaudid) 2 mg Q3H PRN IVP Pain score 7-10 04/24/17 17:30 05/01/17 17:29 04/27/17 22:29 Lansoprazole (Prevacid) 30 mg DAILY ORAL 04/26/17 09:00 05/26/17 08:59 04/27/17 08:13 Morphine Sulfate (Morphine Sulfate) 2 mg Q4H PRN IVP severe Pain (Pain Scale 7-10) 04/22/17 07:45 04/29/17 07:44 04/27/17 11:50 Nitroglycerin (Ntg) 0.4 mg Q5M X 3 DOSES PRN SL Prn Chest Pain 04/22/17 07:45 05/22/17 07:44 Ondansetron HCl (Zofran) 4 mg Q6H PRN IVP Nausea & Vomiting 04/22/17 07:45 05/22/17 07:44 Piperacillin/ Tazobactam/ Dextrose 50 ml @ 12.5 mls/hr EVERY 8 HOURS IVPB 04/27/17 22:00 05/02/17 17:59 04/27/17 22:18 Temazepam (Restoril) 15 mg HSPRN PRN ORAL Insomnia 04/22/17 07:45 04/29/17 07:44 ALEX OCHOA Apr 27, 2017 23:14
[2017-04-28 03:13] VITALS: BP 116/69
[2017-04-28] MEDS: Zosyn 3.375gm q8h **Extended infusion IVPB SCH ×3 (05:32→21:46)
--- NOTE | 2017-04-28 07:08 | General Progress Note ---
Progress Note Progress Note s/p laparoscopic appendectomy apr 03. initially did well, but readmitted for abd pain. had ct scan suggesting a pelvic abscess tht could not be drained by interventional radiology Underwent attempt at laparoscopic drainage that was converted to laparotomy. No abscess was found. pt gradually implroving. on clears and tolerating. No bm yet. adequated analgesia. Vital Sign - Last 24 Hours 04/27/17 04/27/17 04/27/17 04/27/17 08:00 12:00 16:00 19:48 Temp 98.2 98.2 98.4 96.8 Pulse 100 67 69 60 Resp 18 18 18 19 B/P (MAP) 129/67 129/68 126/73 127/74 Pulse Ox 100 98 98 98 O2 Delivery Room Air Room Air Room Air Room Air 04/27/17 04/28/17 04/28/17 23:35 03:13 03:54 Temp 98.6 98.7 98.6 Pulse 61 68 Resp 18 18 B/P (MAP) 120/61 116/69 Pulse Ox 97 99 O2 Delivery Room Air Room Air lungs clear heart nsr Abdomen soft. wound shahzad and dry. \Ben drain with 25 cc serosanguinous fluid AM labs pending Will advance to full liquids check labs LEÓN HERNANDEZ Apr 28, 2017 07:08
[2017-04-28 08:07] LABS: BASOPHILS % (AUTO) 0.7 % (0.0-2.0); EOSINOPHILS % (AUTO) 3.7 % (0.0-3.0); MEAN CORPUSCULAR HEMOGLOBIN 28.7 PG (27.0-31.0); MEAN CORPUSCULAR HGB CONC 32.5 G/DL (32.0-36.0); MEAN CORPUSCULAR VOLUME 88 FL (80-99); MEAN PLATELET VOLUME 6.6 FL (6.5-10.1); MONOCYTES % (AUTO) 8.7 % (1.0-10.0); NEUTROPHILS % (AUTO) 74.9 % (45.0-75.0); PLATELET COUNT 341 K/UL (150-450); RED CELL DISTRIBUTION WIDTH 11.3 % (11.6-14.8); WHITE BLOOD COUNT 12.2 K/UL (4.8-10.8)
[2017-04-28 08:53] VITALS: BP 128/67
[2017-04-28] MEDS ORDERED: D5 1/2NS 1000ml IV ONE (09:17)
[2017-04-28 09:20] LABS: ALANINE AMINOTRANSFERASE 22 U/L (12-78); ALBUMIN/GLOBULIN RATIO 0.6 (1.0-2.7); ANION GAP 12 mmol/L (5-15); ASPARTATE AMINO TRANSFERASE 21 U/L (15-37); CALCIUM 9.2 MG/DL (8.5-10.1); CARBON DIOXIDE 27 MMOL/L (21-32); CHLORIDE 101 MMOL/L (98-107); CREATININE 2.3 MG/DL (0.55-1.30); CRP QUANT 9.3 mg/dL (0.00-0.90); GLOMERULAR FILTRATION RATE 35.4 mL/min (>60); MAGNESIUM 1.8 MG/DL (1.8-2.4); PHOSPHORUS 4.1 MG/DL (2.5-4.9); POTASSIUM 3.6 MMOL/L (3.5-5.1); SODIUM 140 MMOL/L (136-145); TOTAL PROTEIN 6.8 G/DL (6.4-8.2); URIC ACID 2.9 MG/DL (2.6-7.2)
--- NOTE | 2017-04-28 11:25 | General Progress Note ---
Assessment/Plan Problem List: (1) Fever ICD Codes: R50.9 - Fever, unspecified SNOMED: 580852306 (2) Pelvic abscess SNOMED: 747964639 (3) Sepsis ICD Codes: A41.9 - Sepsis, unspecified organism SNOMED: 52541424 (4) Colitis ICD Codes: K52.9 - Noninfective gastroenteritis and colitis, unspecified SNOMED: 92210620 (5) UTI (urinary tract infection) ICD Codes: N39.0 - Urinary tract infection, site not specified SNOMED: 11838216 (6) THEA (acute kidney injury) ICD Codes: N17.9 - Acute kidney failure, unspecified SNOMED: 25763276 Status: unchanged Assessment/Plan abx per id gi f/u cbc bmp am Subjective Constitutional: Reports: weakness Allergies: Coded Allergies: No Known Allergies (Unverified , 07/17/12) All Systems: reviewed and negative except above Subjective calm in bed Objective Last 24 Hour Vital Signs Date Time Temp Pulse Resp B/P (MAP) Pulse Ox O2 Delivery O2 Flow Rate FiO2 04/28/17 08:53 97.6 59 16 128/67 99 Room Air 04/28/17 03:54 98.6 04/28/17 03:13 98.7 68 18 116/69 99 Room Air 04/27/17 23:35 98.6 61 18 120/61 97 Room Air 04/27/17 19:48 96.8 60 19 127/74 98 Room Air 04/27/17 16:00 98.4 69 18 126/73 98 Room Air 04/27/17 12:00 98.2 67 18 129/68 98 Room Air Intake and Output 04/28/17 04/29/17 19:00 07:00 Output Total 475 ml Balance -475 ml Output Urine Total 475 ml Laboratory Tests 04/28/17 05:25: White Blood Count 12.2H, Red Blood Count 3.90L, Hemoglobin 11.2L, Hematocrit 34.5L, Mean Corpuscular Volume 88, Mean Corpuscular Hemoglobin 28.7, Mean Corpuscular Hemoglobin Concent 32.5, Red Cell Distribution Width 11.3L, Platelet Count 341, Mean Platelet Volume 6.6, Neutrophils (%) (Auto) 74.9, Lymphocytes (%) (Auto) 12.0L, Monocytes (%) (Auto) 8.7, Eosinophils (%) (Auto) 3.7H, Basophils (%) (Auto) 0.7, Sodium Level 140, Potassium Level 3.6, Chloride Level 101, Carbon Dioxide Level 27, Anion Gap 12, Blood Urea Nitrogen 8, Creatinine 2.3H, Estimat Glomerular Filtration Rate 35.4, Glucose Level 122H, Uric Acid 2.9, Calcium Level 9.2, Phosphorus Level 4.1, Magnesium Level 1.8, Total Bilirubin 0.7, Aspartate Amino Transf (AST/SGOT) 21, Alanine Aminotransferase (ALT/SGPT) 22, Alkaline Phosphatase 83, C-Reactive Protein, Quantitative 9.3H, Total Protein 6.8, Albumin 2.5L, Globulin 4.3, Albumin/ Globulin Ratio 0.6L 04/28/17 06:55: Urine Eosinophils None seen Height (Feet): 5 Height (Inches): 10.00 Weight (Pounds): 150 General Appearance: lethargic EENT: normal ENT inspection Neck: normal alignment Cardiovascular: normal peripheral pulses, normal rate, regular rhythm Respiratory/Chest: chest wall non-tender, lungs clear, normal breath sounds Abdomen: normal bowel sounds, non tender, soft Extremities: normal inspection Edema: no edema noted Arm (L), no edema noted Arm (R), no edema noted Leg (L), no edema noted Leg (R), no edema noted Pedal (L), no edema noted Pedal (R), no edema noted Generalized Neurologic: responsive, motor weakness Skin: normal pigmentation, warm/dry MARIBEL TREJO Apr 28, 2017 11:25
[2017-04-28 12:17] VITALS: BP 134/92
--- NOTE | 2017-04-28 13:56 | General Progress Note ---
Assessment/Plan Status: stable Status Narrative Cr lowering Assessment/Plan acute renal failure due to sepsis and antibiotics Plan: urine studies- Kidney RYANN negative for hydro increse IV fluid Per ID monitor renal parameters Subjective ROS Limited/Unobtainable: No Constitutional: Reports: malaise Allergies: Coded Allergies: No Known Allergies (Unverified , 07/17/12) Objective Last 24 Hour Vital Signs Date Time Temp Pulse Resp B/P (MAP) Pulse Ox O2 Delivery O2 Flow Rate FiO2 04/28/17 12:17 97.4 66 15 134/92 98 Room Air 04/28/17 08:53 97.6 59 16 128/67 99 Room Air 04/28/17 03:54 98.6 04/28/17 03:13 98.7 68 18 116/69 99 Room Air 04/27/17 23:35 98.6 61 18 120/61 97 Room Air 04/27/17 19:48 96.8 60 19 127/74 98 Room Air 04/27/17 16:00 98.4 69 18 126/73 98 Room Air Intake and Output 04/28/17 04/29/17 19:00 07:00 Intake Total 137.5 ml Output Total 475 ml Balance -337.5 ml IV Total 137.5 ml Output Urine Total 475 ml Laboratory Tests 04/28/17 05:25: White Blood Count 12.2H, Red Blood Count 3.90L, Hemoglobin 11.2L, Hematocrit 34.5L, Mean Corpuscular Volume 88, Mean Corpuscular Hemoglobin 28.7, Mean Corpuscular Hemoglobin Concent 32.5, Red Cell Distribution Width 11.3L, Platelet Count 341, Mean Platelet Volume 6.6, Neutrophils (%) (Auto) 74.9, Lymphocytes (%) (Auto) 12.0L, Monocytes (%) (Auto) 8.7, Eosinophils (%) (Auto) 3.7H, Basophils (%) (Auto) 0.7, Sodium Level 140, Potassium Level 3.6, Chloride Level 101, Carbon Dioxide Level 27, Anion Gap 12, Blood Urea Nitrogen 8, Creatinine 2.3H, Estimat Glomerular Filtration Rate 35.4, Glucose Level 122H, Uric Acid 2.9, Calcium Level 9.2, Phosphorus Level 4.1, Magnesium Level 1.8, Total Bilirubin 0.7, Aspartate Amino Transf (AST/SGOT) 21, Alanine Aminotransferase (ALT/SGPT) 22, Alkaline Phosphatase 83, C-Reactive Protein, Quantitative 9.3H, Total Protein 6.8, Albumin 2.5L, Globulin 4.3, Albumin/ Globulin Ratio 0.6L 04/28/17 06:55: Urine Eosinophils None seen Height (Feet): 5 Height (Inches): 10.00 Weight (Pounds): 150 General Appearance: no apparent distress Objective PE not changed IRAIDA CONN Apr 28, 2017 13:56
[2017-04-28 17:00] VITALS: BP 117/67
[2017-04-28 20:19] VITALS: BP 123/72
[2017-04-28] MEDS: D5 1/2NS 1,000 ML IV SCH (21:47)
--- NOTE | 2017-04-28 23:54 | Infectious Diseases Prog Note ---
Assessment/Plan Problems: (1) Sepsis Assessment & Plan: WBC still elevated. Due to pelvic/intra-abdominal abscess. (2) Pelvic abscess Assessment & Plan: Continue with empiric Zosyn. Try to culture drain fluid. Now off vancomycin IV. Consider repeat CT. (3) THEA (acute kidney injury) Assessment & Plan: Due to vancomycin? Sepsis? Subjective Allergies: Coded Allergies: No Known Allergies (Unverified , 07/17/12) Objective Vital Signs Last 24 Hour Vital Signs Date Time Temp Pulse Resp B/P (MAP) Pulse Ox O2 Delivery O2 Flow Rate FiO2 04/28/17 20:19 97.7 65 18 123/72 97 Room Air 04/28/17 20:17 98.2 04/28/17 17:00 98.2 67 18 117/67 98 Room Air 04/28/17 12:17 97.4 66 15 134/92 98 Room Air 04/28/17 08:53 97.6 59 16 128/67 99 Room Air 04/28/17 03:13 98.7 68 18 116/69 99 Room Air Height (Feet): 5 Height (Inches): 10.00 Weight (Pounds): 150 Laboratory Tests Test 04/28/17 05:25 04/28/17 06:55 White Blood Count 12.2 K/UL (4.8-10.8) H Red Blood Count 3.90 M/UL (4.70-6.10) L Hemoglobin 11.2 G/DL (14.2-18.0) L Hematocrit 34.5 % (42.0-52.0) L Mean Corpuscular Volume 88 FL (80-99) Mean Corpuscular Hemoglobin 28.7 PG (27.0-31.0) Mean Corpuscular Hemoglobin Concent 32.5 G/DL (32.0-36.0) Red Cell Distribution Width 11.3 % (11.6-14.8) L Platelet Count 341 K/UL (150-450) Mean Platelet Volume 6.6 FL (6.5-10.1) Neutrophils (%) (Auto) 74.9 % (45.0-75.0) Lymphocytes (%) (Auto) 12.0 % (20.0-45.0) L Monocytes (%) (Auto) 8.7 % (1.0-10.0) Eosinophils (%) (Auto) 3.7 % (0.0-3.0) H Basophils (%) (Auto) 0.7 % (0.0-2.0) Sodium Level 140 MMOL/L (136-145) Potassium Level 3.6 MMOL/L (3.5-5.1) Chloride Level 101 MMOL/L (98-107) Carbon Dioxide Level 27 MMOL/L (21-32) Anion Gap 12 mmol/L (5-15) Blood Urea Nitrogen 8 mg/dL (7-18) Creatinine 2.3 MG/DL (0.55-1.30) H Estimat Glomerular Filtration Rate 35.4 mL/min (>60) Glucose Level 122 MG/DL (74-106) H Uric Acid 2.9 MG/DL (2.6-7.2) Calcium Level 9.2 MG/DL (8.5-10.1) Phosphorus Level 4.1 MG/DL (2.5-4.9) Magnesium Level 1.8 MG/DL (1.8-2.4) Total Bilirubin 0.7 MG/DL (0.2-1.0) Aspartate Amino Transf (AST/SGOT) 21 U/L (15-37) Alanine Aminotransferase (ALT/SGPT) 22 U/L (12-78) Alkaline Phosphatase 83 U/L (46-116) C-Reactive Protein, Quantitative 9.3 mg/dL (0.00-0.90) H Total Protein 6.8 G/DL (6.4-8.2) Albumin 2.5 G/DL (3.4-5.0) L Globulin 4.3 g/dL Albumin/Globulin Ratio 0.6 (1.0-2.7) L Urine Eosinophils None seen Current Medications Medications (Trade) Dose Ordered Sig/Edwina Route PRN Reason Start Time Stop Time Status Last Admin Dose Admin Acetaminophen (Tylenol) 650 mg Q4H PRN ORAL fever 04/22/17 07:45 05/22/17 07:44 04/22/17 18:10 Dextrose (Dextrose 50%) STAT PRN IV Hypoglycemia 04/22/17 07:45 05/22/17 07:44 Dextrose/Sodium Chloride 1,000 ml @ 100 mls/hr Q10H IV 04/28/17 15:30 05/28/17 15:29 04/28/17 21:47 Hydromorphone HCl (Dilaudid) 0.5 mg Q3H PRN IVP Pain Score 1-3 04/24/17 17:30 05/01/17 17:29 Hydromorphone HCl (Dilaudid) 1 mg Q3H PRN IVP pain score 4-6 04/27/17 19:00 05/01/17 17:29 Hydromorphone HCl (Dilaudid) 2 mg Q3H PRN IVP Pain score 7-10 04/24/17 17:30 05/01/17 17:29 04/28/17 19:47 Lansoprazole (Prevacid) 30 mg DAILY ORAL 04/26/17 09:00 05/26/17 08:59 04/28/17 10:27 Morphine Sulfate (Morphine Sulfate) 2 mg Q4H PRN IVP severe Pain (Pain Scale 7-10) 04/22/17 07:45 04/29/17 07:44 04/27/17 11:50 Nitroglycerin (Ntg) 0.4 mg Q5M X 3 DOSES PRN SL Prn Chest Pain 04/22/17 07:45 05/22/17 07:44 Ondansetron HCl (Zofran) 4 mg Q6H PRN IVP Nausea & Vomiting 04/22/17 07:45 05/22/17 07:44 04/28/17 22:40 Piperacillin/ Tazobactam/ Dextrose 50 ml @ 12.5 mls/hr EVERY 8 HOURS IVPB 04/27/17 22:00 05/02/17 17:59 04/28/17 21:46 Temazepam (Restoril) 15 mg HSPRN PRN ORAL Insomnia 04/22/17 07:45 04/29/17 07:44 ALEX OCHOA Apr 28, 2017 23:54
[2017-04-28 23:58] VITALS: BP 119/67
[2017-04-29] MEDS: D5 1/2NS 1,000 ML IV SCH ×2 (03:09→19:22)
[2017-04-29 04:00] VITALS: BP 125/68
[2017-04-29] MEDS: Zosyn 3.375gm q8h **Extended infusion IVPB SCH ×3 (05:15→21:38)
[2017-04-29 05:25] VITALS: BP 125/68
--- NOTE | 2017-04-29 07:22 | General Surgery Progress Note ---
General Surgery-Progress Note Subjective Day of Surgery: laparoscopic appendectomy 04-04, had laparoscopy open laparotomy 04-24 Reason for Consult for suspected pelvic abscess but none found Symptoms: pain same, tolerating diet, passing flatus, BM Objective Last 24 Hour Vital Signs Date Time Temp Pulse Resp B/P (MAP) Pulse Ox O2 Delivery O2 Flow Rate FiO2 04/29/17 06:00 97.7 04/29/17 04:00 97.7 60 18 125/68 100 Room Air 04/28/17 23:58 98.1 60 18 119/67 98 Room Air 04/28/17 20:19 97.7 65 18 123/72 97 Room Air 04/28/17 17:00 98.2 67 18 117/67 98 Room Air 04/28/17 12:17 97.4 66 15 134/92 98 Room Air 04/28/17 08:53 97.6 59 16 128/67 99 Room Air Wound: clean, intact Drains: none Cardiovascular: RSR Respiratory: clear Abdomen: soft, scaphoid Laboratory Tests Test 04/29/17 04:40 04/29/17 05:33 White Blood Count Pending Red Blood Count Pending Hemoglobin Pending Hematocrit Pending Mean Corpuscular Volume Pending Mean Corpuscular Hemoglobin Pending Mean Corpuscular Hemoglobin Concent Pending Red Cell Distribution Width Pending Platelet Count Pending Mean Platelet Volume Pending Neutrophils (%) (Auto) Pending Lymphocytes (%) (Auto) Pending Monocytes (%) (Auto) Pending Eosinophils (%) (Auto) Pending Basophils (%) (Auto) Pending Sodium Level Pending Potassium Level Pending Chloride Level Pending Carbon Dioxide Level Pending Blood Urea Nitrogen Pending Creatinine Pending Estimat Glomerular Filtration Rate Pending Glucose Level Pending Calcium Level Pending Phosphorus Level Pending Magnesium Level Pending Total Bilirubin Pending Direct Bilirubin Pending Aspartate Amino Transf (AST/SGOT) Pending Alanine Aminotransferase (ALT/SGPT) Pending Alkaline Phosphatase Pending C-Reactive Protein, Quantitative Pending Total Protein Pending Albumin Pending Urine Eosinophils Pending Assessment Post-op Diagnosis stable post op. will advance diet. home soon LEÓN HERNANDEZ Apr 29, 2017 07:22
[2017-04-29] MEDS ORDERED: Norco 7.5mg/325mg tab ORAL PRN (07:30)
[2017-04-29 07:44] LABS: BASOPHILS % (AUTO) 0.7 % (0.0-2.0); EOSINOPHILS % (AUTO) 4.6 % (0.0-3.0); LYMPHOCYTES % (AUTO) 11.7 % (20.0-45.0); MEAN CORPUSCULAR HEMOGLOBIN 29.6 PG (27.0-31.0); MEAN CORPUSCULAR HGB CONC 33.9 G/DL (32.0-36.0); MEAN CORPUSCULAR VOLUME 87 FL (80-99); MEAN PLATELET VOLUME 6.3 FL (6.5-10.1); PLATELET COUNT 299 K/UL (150-450); RED BLOOD COUNT 3.63 M/UL (4.70-6.10); RED CELL DISTRIBUTION WIDTH 10.8 % (11.6-14.8); WHITE BLOOD COUNT 12.5 K/UL (4.8-10.8)
[2017-04-29 07:52] LABS: ALANINE AMINOTRANSFERASE 21 U/L (12-78); ASPARTATE AMINO TRANSFERASE 19 U/L (15-37); BILIRUBIN,DIRECT 0.2 MG/DL (0.0-0.3); CRP QUANT 8.5 mg/dL (0.00-0.90); MAGNESIUM 1.7 MG/DL (1.8-2.4); PHOSPHORUS 4.4 MG/DL (2.5-4.9); TOTAL PROTEIN 5.6 G/DL (6.4-8.2)
[2017-04-29 08:01] LABS: ANION GAP 9 mmol/L (5-15); CALCIUM 8.6 MG/DL (8.5-10.1); CARBON DIOXIDE 28 MMOL/L (21-32); CHLORIDE 101 MMOL/L (98-107); GLOMERULAR FILTRATION RATE 41.6 mL/min (>60); POTASSIUM 3.3 MMOL/L (3.5-5.1); SODIUM 138 MMOL/L (136-145)
[2017-04-29 08:15] VITALS: BP 124/67
--- NOTE | 2017-04-29 09:43 | General Progress Note ---
Assessment/Plan Problem List: (1) Fever ICD Codes: R50.9 - Fever, unspecified SNOMED: 870442363 (2) Pelvic abscess SNOMED: 731599976 (3) Sepsis ICD Codes: A41.9 - Sepsis, unspecified organism SNOMED: 87605396 (4) Colitis ICD Codes: K52.9 - Noninfective gastroenteritis and colitis, unspecified SNOMED: 36100445 (5) UTI (urinary tract infection) ICD Codes: N39.0 - Urinary tract infection, site not specified SNOMED: 35363691 (6) THEA (acute kidney injury) ICD Codes: N17.9 - Acute kidney failure, unspecified SNOMED: 61917735 Status: stable, progressing, tolerating diet Assessment/Plan abx per id gi f/u cbc bmp am Subjective Constitutional: Reports: weakness Allergies: Coded Allergies: No Known Allergies (Unverified , 07/17/12) All Systems: reviewed and negative except above Subjective calm in bed Objective Last 24 Hour Vital Signs Date Time Temp Pulse Resp B/P (MAP) Pulse Ox O2 Delivery O2 Flow Rate FiO2 04/29/17 06:00 97.7 04/29/17 04:00 97.7 60 18 125/68 100 Room Air 04/28/17 23:58 98.1 60 18 119/67 98 Room Air 04/28/17 20:19 97.7 65 18 123/72 97 Room Air 04/28/17 17:00 98.2 67 18 117/67 98 Room Air 04/28/17 12:17 97.4 66 15 134/92 98 Room Air Intake and Output 04/29/17 04/30/17 19:00 07:00 Intake Total 112.5 ml Balance 112.5 ml IV Total 112.5 ml Laboratory Tests 04/29/17 04:40: White Blood Count 12.5H, Red Blood Count 3.63L, Hemoglobin 10.8L, Hematocrit 31.7L, Mean Corpuscular Volume 87, Mean Corpuscular Hemoglobin 29.6, Mean Corpuscular Hemoglobin Concent 33.9, Red Cell Distribution Width 10.8L, Platelet Count 299, Mean Platelet Volume 6.3L, Neutrophils (%) (Auto) 73.0, Lymphocytes (%) (Auto) 11.7L, Monocytes (%) (Auto) 10.0, Eosinophils (%) (Auto) 4.6H, Basophils (%) (Auto) 0.7, Sodium Level 138, Potassium Level 3.3L, Chloride Level 101, Carbon Dioxide Level 28, Anion Gap 9, Blood Urea Nitrogen 8 , Creatinine 2.0H, Estimat Glomerular Filtration Rate 41.6, Glucose Level 114H, Calcium Level 8.6, Phosphorus Level 4.4, Magnesium Level 1.7L, Total Bilirubin 0.6, Direct Bilirubin 0.2, Aspartate Amino Transf (AST/SGOT) 19, Alanine Aminotransferase (ALT/SGPT) 21, Alkaline Phosphatase 81, C-Reactive Protein, Quantitative 8.5H, Total Protein 5.6L, Albumin 2.2L 04/29/17 05:33: Urine Eosinophils None seen Height (Feet): 5 Height (Inches): 10.00 Weight (Pounds): 150 General Appearance: lethargic EENT: normal ENT inspection Neck: normal alignment Cardiovascular: normal peripheral pulses, normal rate, regular rhythm Respiratory/Chest: chest wall non-tender, lungs clear, normal breath sounds Abdomen: normal bowel sounds, non tender, soft Extremities: normal inspection Edema: no edema noted Arm (L), no edema noted Arm (R), no edema noted Leg (L), no edema noted Leg (R), no edema noted Pedal (L), no edema noted Pedal (R), no edema noted Generalized Neurologic: motor weakness Skin: normal pigmentation, warm/dry MARIBEL TREJO Apr 29, 2017 09:43
[2017-04-29] MEDS ORDERED: KCl 10% 40mEq/30ml liquid ORAL ONE (10:45)
--- NOTE | 2017-04-29 11:24 | General Progress Note ---
Assessment/Plan Status: stable Status Narrative Cr lower Assessment/Plan acute renal failure due to sepsis and antibiotics Plan: urine studies- Kidney RYANN negative for hydro increse IV fluid Per ID monitor renal parameters Subjective ROS Limited/Unobtainable: No Constitutional: Reports: malaise Allergies: Coded Allergies: No Known Allergies (Unverified , 07/17/12) Objective Last 24 Hour Vital Signs Date Time Temp Pulse Resp B/P (MAP) Pulse Ox O2 Delivery O2 Flow Rate FiO2 04/29/17 06:00 97.7 04/29/17 04:00 97.7 60 18 125/68 100 Room Air 04/28/17 23:58 98.1 60 18 119/67 98 Room Air 04/28/17 20:19 97.7 65 18 123/72 97 Room Air 04/28/17 17:00 98.2 67 18 117/67 98 Room Air 04/28/17 12:17 97.4 66 15 134/92 98 Room Air Intake and Output 04/29/17 04/30/17 19:00 07:00 Intake Total 112.5 ml Balance 112.5 ml IV Total 112.5 ml Laboratory Tests 04/29/17 04:40: White Blood Count 12.5H, Red Blood Count 3.63L, Hemoglobin 10.8L, Hematocrit 31.7L, Mean Corpuscular Volume 87, Mean Corpuscular Hemoglobin 29.6, Mean Corpuscular Hemoglobin Concent 33.9, Red Cell Distribution Width 10.8L, Platelet Count 299, Mean Platelet Volume 6.3L, Neutrophils (%) (Auto) 73.0, Lymphocytes (%) (Auto) 11.7L, Monocytes (%) (Auto) 10.0, Eosinophils (%) (Auto) 4.6H, Basophils (%) (Auto) 0.7, Sodium Level 138, Potassium Level 3.3L, Chloride Level 101, Carbon Dioxide Level 28, Anion Gap 9, Blood Urea Nitrogen 8 , Creatinine 2.0H, Estimat Glomerular Filtration Rate 41.6, Glucose Level 114H, Calcium Level 8.6, Phosphorus Level 4.4, Magnesium Level 1.7L, Total Bilirubin 0.6, Direct Bilirubin 0.2, Aspartate Amino Transf (AST/SGOT) 19, Alanine Aminotransferase (ALT/SGPT) 21, Alkaline Phosphatase 81, C-Reactive Protein, Quantitative 8.5H, Total Protein 5.6L, Albumin 2.2L 04/29/17 05:33: Urine Eosinophils None seen Height (Feet): 5 Height (Inches): 10.00 Weight (Pounds): 150 General Appearance: no apparent distress Objective PE not changed IRAIDA CONN Apr 29, 2017 11:24
[2017-04-29 17:08] VITALS: BP 118/65
[2017-04-29 19:44] VITALS: BP 131/74
[2017-04-29 23:33] VITALS: BP 130/69
[2017-04-30] VITALS (7 sets, daily range): BP systolic 107–127; BP diastolic 62–75
[2017-04-30] MEDS: Zosyn 3.375gm q8h **Extended infusion IVPB SCH ×3 (05:17→21:09)
[2017-04-30 07:52] LABS: ANION GAP 6 mmol/L (5-15); CALCIUM 9.2 MG/DL (8.5-10.1); CARBON DIOXIDE 31 MMOL/L (21-32); CHLORIDE 100 MMOL/L (98-107); CREATININE 2.1 MG/DL (0.55-1.30); GLOMERULAR FILTRATION RATE 39.3 mL/min (>60); SODIUM 137 MMOL/L (136-145)
[2017-04-30 07:59] LABS: BASOPHILS % (AUTO) 0.6 % (0.0-2.0); EOSINOPHILS % (AUTO) 5.4 % (0.0-3.0); LYMPHOCYTES % (AUTO) 12.9 % (20.0-45.0); MEAN CORPUSCULAR HEMOGLOBIN 29.5 PG (27.0-31.0); MEAN CORPUSCULAR HGB CONC 33.9 G/DL (32.0-36.0); MEAN CORPUSCULAR VOLUME 87 FL (80-99); MEAN PLATELET VOLUME 6.6 FL (6.5-10.1); MONOCYTES % (AUTO) 10.4 % (1.0-10.0); NEUTROPHILS % (AUTO) 70.8 % (45.0-75.0); PLATELET COUNT 330 K/UL (150-450); RED BLOOD COUNT 3.97 M/UL (4.70-6.10); RED CELL DISTRIBUTION WIDTH 10.8 % (11.6-14.8); WHITE BLOOD COUNT 11.6 K/UL (4.8-10.8)
[2017-04-30] MEDS: D5 1/2NS 1,000 ML IV SCH (08:42)
--- NOTE | 2017-04-30 10:15 | Operative Note - Dictated ---
DATE OF OPERATION: 04/24/2017 PREOPERATIVE DIAGNOSIS: Pelvic intraabdominal abscess, status post laparoscopic appendectomy. POSTOPERATIVE DIAGNOSIS: Pelvic intraabdominal abscess, status post laparoscopic appendectomy. OPERATION PERFORMED: Laparoscopic converted to open drainage of pelvic intra-abdominal abscess. ATTENDING SURGEON: Hans Hess M.D. [employer]: None. ANESTHESIOLOGIST: Sourav Nair M.D. ANESTHESIA: General MANAGER [employer]ATION REVIEW. SPECIMENS: None. COMPLICATIONS: None. FLUIDS: Please see anesthesia records. ESTIMATED BLOOD LOSS: 50 mL. DRAINS: A 19-English Ben drain left in the pelvis for evacuation of fluid. WOUND CLASSIFICATION: Class 3. IMPLANTS: None. COUNTS: Sponge and needle count correct x2. INDICATIONS FOR PROCEDURE: This is a 21-year-old male, who recntly had an uncomplicated laparoscopic appendectomy. Postoperatively, the patient was doing well and discharged home safely. Unfortunately, over the subsequent days he began to develop abdominal discomfort, fever, chills, and fatigue. The patient came in to the emergency department for evaluation, at which time, had a CT of abdomen and pelvis, which demonstrated a loculated pelvic fluid collection consistent with abscess. At this time he had a fever and leukocytosis as well. Interventional Radiology was consulted but given the location and surrounding anatomy, no safe approach to radiological drainage was possible. Therefore, surgical intervention was necessary and indicated. The risks, benefits, and alternatives of surgery were discussed with the patient in detail. I discussed laparoscopic surgery with the possibility of open if necessary. We discussed abdominal washout, drain placement, and possible need for re-operation. I explained to him that the location of the fluid collection may be difficult to access and there are risks of injury to intestines, surrounding organs, and blood vessels. The patient expressed understanding and consented to surgery. OPERATIVE NOTE: The patient was taken to the operating room and placed on the operating table in supine position with bilateral arms out. All bony prominences were well padded with gel pads. SCD's were placed. Preoperative time-out was taken in identifying the patient, procedure, operative staff, and surgical staff. General anesthesia was induced and the patient was intubated. A Perez catheter was placed using sterile technique. The patient was already on scheduled Zosyn and vancomycin for active infection. The abdomen was then prepped and draped in a standard surgical fashion. We began by making an umbilical incision using a fresh #11 scalpel. Incision was carried down to the fascia. The fascia was elevated, incised, and the abdomen entered under direct visualization. A 12 mm Rox trocar was inserted using the open Rox technique. The abdomen was then insufflated to 12 to 15 mmHg without complication. The laparoscope was inserted and the abdomen was inspected. There was a significant amount of adhesive/inflammatory process in the right lower quadrant and the pelvis. The right upper quadrant, left lower quadrante and left upper quadrant were otherwise normal. There was some free fluid in the abdomen that was serous in nature. At this time, secondary trocars were placed under direct visualization in the suprapubic and left lower quadrant. We began with laparoscopic evaluation of the small bowel, abdomen, and pelvis to identify the pelvic fluid collection. Given the amount of adhesive process in the pelvis and right lower quadrant, I did not believe that it would be safe to continue laparoscopically as there was a high risk for injuring the bowel and surrounding organs. There was some fluid in the pelvis and interloop fluid that was identified and evacuated. Once this was completed, decision was made to convert to open. A vertical infraumbilical midline incision was made using a fresh #10 blade. Incision was taken down through the dermis and subcutaneous tissues to the fascia. The fascia was incised as well as the peritoneum and abdomen entered. Retractors were placed and the abdomen and pelvis were inspected. Adhesions between the loops of small bowel and pelvis were dissected out carefully using blunt dissection and Metzenbaum scissors as necessary. At this time, we were able to free the intestines and run them from the ileocecal valve proximally. No injury or other abnormalities were found and the bowel was noted to be otherwise healthy except for surrounding inflammatory process. Pelvis was then gently dissected. Adhesive process and fluid evacuated. No definitive abscess cavity was identified and multiple small fluid collections were evacuated. At this time, the radiographic images were presented in the operating room. Images were evaluated and anatomically located within the abdomen. In the respective areas, no definitive abscess cavities were noted and more likely just a fluid collection that were already evacuated. Following this, the abdomen and pelvis were irrigated with copious amounts of warm antibiotic solution and suction. Remainder of the abdomen looked well as did the pelvis and no other abnormalities were identified. At this time, a 19-English Ben drain was inserted through the left lower abdomen trocar site and the drain was left in the pelvis for drainage. We began the conclusion of our procedure with closing of the fascia using a #0 looped PDS followed by closure of the skin with surgical skin lois. Dressings were applied. The patient tolerated the procedure well, was extubated, and taken to postanesthesia care unit in stable condition. Hans Hess M.D. DR: HUNTER JOB#: [id number] CC: WILMER
--- NOTE | 2017-04-30 10:57 | General Progress Note ---
Assessment/Plan Status: stable Assessment/Plan acute renal failure due to sepsis and antibiotics Plan: Stop IBUPROFEN No NSAIDS urine studies- Kidney RYANN negative for hydro increse IV fluid Per ID monitor renal parameters Subjective ROS Limited/Unobtainable: No Constitutional: Reports: malaise Allergies: Coded Allergies: No Known Allergies (Unverified , 07/17/12) Objective Last 24 Hour Vital Signs Date Time Temp Pulse Resp B/P (MAP) Pulse Ox O2 Delivery O2 Flow Rate FiO2 04/30/17 08:00 98.1 67 20 114/67 96 Room Air 04/30/17 03:20 97.5 56 20 127/68 96 Room Air 04/29/17 23:33 97.6 56 20 130/69 96 Room Air 04/29/17 19:44 97.6 56 20 131/74 97 Room Air 04/29/17 17:08 97.3 80 18 118/65 98 Room Air Laboratory Tests 04/30/17 04:40: White Blood Count 11.6H, Red Blood Count 3.97L, Hemoglobin 11.7L, Hematocrit 34.6L, Mean Corpuscular Volume 87, Mean Corpuscular Hemoglobin 29.5, Mean Corpuscular Hemoglobin Concent 33.9, Red Cell Distribution Width 10.8L, Platelet Count 330, Mean Platelet Volume 6.6, Neutrophils (%) (Auto) 70.8, Lymphocytes (%) (Auto) 12.9L, Monocytes (%) (Auto) 10.4H, Eosinophils (%) (Auto ) 5.4H, Basophils (%) (Auto) 0.6, Sodium Level 137, Potassium Level 4.0, Chloride Level 100, Carbon Dioxide Level 31, Anion Gap 6, Blood Urea Nitrogen 9 , Creatinine 2.1H, Estimat Glomerular Filtration Rate 39.3, Glucose Level 96, Calcium Level 9.2 Height (Feet): 5 Height (Inches): 10.00 Weight (Pounds): 150 General Appearance: no apparent distress Objective PE not changed IRAIDA CONN Apr 30, 2017 10:57
--- NOTE | 2017-04-30 11:10 | GI Progress Note ---
Assessment/Plan Problems: (1) Sepsis ICD Codes: A41.9 - Sepsis, unspecified organism SNOMED: 22525271 (2) Colitis ICD Codes: K52.9 - Noninfective gastroenteritis and colitis, unspecified SNOMED: 10475360 (3) Pelvic abscess SNOMED: 407979852 Status: stable Status Narrative Discussed with Dr. Hernández. Assessment/Plan surgical recs >> s/p laparoscopic possible open drainage and washout of pelvic / intraabdominal abscess diet per surgery, regular abx pain mgmt fu labs Subjective Subjective tolerating regular diet Objective Last 24 Hour Vital Signs Date Time Temp Pulse Resp B/P (MAP) Pulse Ox O2 Delivery O2 Flow Rate FiO2 04/30/17 08:00 98.1 67 20 114/67 96 Room Air 04/30/17 03:20 97.5 56 20 127/68 96 Room Air 04/29/17 23:33 97.6 56 20 130/69 96 Room Air 04/29/17 19:44 97.6 56 20 131/74 97 Room Air 04/29/17 17:08 97.3 80 18 118/65 98 Room Air Laboratory Tests Test 04/30/17 04:40 White Blood Count 11.6 K/UL (4.8-10.8) H Red Blood Count 3.97 M/UL (4.70-6.10) L Hemoglobin 11.7 G/DL (14.2-18.0) L Hematocrit 34.6 % (42.0-52.0) L Mean Corpuscular Volume 87 FL (80-99) Mean Corpuscular Hemoglobin 29.5 PG (27.0-31.0) Mean Corpuscular Hemoglobin Concent 33.9 G/DL (32.0-36.0) Red Cell Distribution Width 10.8 % (11.6-14.8) L Platelet Count 330 K/UL (150-450) Mean Platelet Volume 6.6 FL (6.5-10.1) Neutrophils (%) (Auto) 70.8 % (45.0-75.0) Lymphocytes (%) (Auto) 12.9 % (20.0-45.0) L Monocytes (%) (Auto) 10.4 % (1.0-10.0) H Eosinophils (%) (Auto) 5.4 % (0.0-3.0) H Basophils (%) (Auto) 0.6 % (0.0-2.0) Sodium Level 137 MMOL/L (136-145) Potassium Level 4.0 MMOL/L (3.5-5.1) Chloride Level 100 MMOL/L (98-107) Carbon Dioxide Level 31 MMOL/L (21-32) Anion Gap 6 mmol/L (5-15) Blood Urea Nitrogen 9 mg/dL (7-18) Creatinine 2.1 MG/DL (0.55-1.30) H Estimat Glomerular Filtration Rate 39.3 mL/min (>60) Glucose Level 96 MG/DL (74-106) Calcium Level 9.2 MG/DL (8.5-10.1) Height (Feet): 5 Height (Inches): 10.00 Weight (Pounds): 150 General Appearance: WD/WN, no apparent distress, alert Cardiovascular: normal rate Respiratory/Chest: normal breath sounds, no respiratory distress Abdominal Exam: normal bowel sounds, non tender, soft Extremities: normal range of motion, non-tender Salma Winslow N.P. Apr 30, 2017 11:10
--- NOTE | 2017-04-30 12:06 | General Progress Note ---
Progress Note Progress Note Surgery: patient seen and examined at bedside. no acute events. states he is doing much better. no n/v/f/c. tolerating oral diet. passing flatus consistently but no BM yet afebrile, HD stable, labs slowly improving. AAOx3, NAD CTA b/l non labored RRR soft, non distended, incisional tenderness, wound d/c/i with lois, drain removed and drain site clean ext wnl s/p lap appy with late development of pelvic intraabdominal abscess s/p lap converted to open evacuation of intraabdominal fluid collections. no definitive abscess identified but multiple small fluid collections evacuated and abdomen washed out. converted from lap to open to properly inspect and evaluate abdomen and pelvis. doing well since surgery and recovering. has been taking pain medication too often and some concerns for dependency. spoke with patient directly about this and he expressed understanding. he is only going to use pain meds when necessary. -trend wbc and bmp -awaiting full return of bowel function -minimize narcotic use -IV fluids as per renal -continue IV Abx. -as long as he is afebrile, continues to improve and leukocytosis trends down he is improving. if any changes will likely need repeat CT A/P -Will monitor for another day or two in hospital. can likely d/c home once afebrile and normal wbc for > 24hrs. -ambulate and OOB -incentive spirometry Hans Hess Apr 30, 2017 12:06
[2017-04-30] MEDS ORDERED: Norco 7.5mg/325mg tab ORAL PRN (12:30)
[2017-04-30] MEDS ORDERED: Milk of Magnesia 30ml Ud ORAL ONE (12:30)
[2017-04-30] MEDS: D5NS 1,000 ML IV SCH ×2 (12:43→21:09)
[2017-04-30] MEDS ORDERED: D5 1/2NS 1000ml IV ONE (14:45)
--- NOTE | 2017-04-30 15:02 | General Progress Note ---
Assessment/Plan Problem List: (1) Pelvic abscess SNOMED: 338859250 (2) Sepsis ICD Codes: A41.9 - Sepsis, unspecified organism SNOMED: 70966385 (3) Colitis ICD Codes: K52.9 - Noninfective gastroenteritis and colitis, unspecified SNOMED: 39819922 (4) UTI (urinary tract infection) ICD Codes: N39.0 - Urinary tract infection, site not specified SNOMED: 00186181 (5) Fever ICD Codes: R50.9 - Fever, unspecified SNOMED: 084964357 Status: progressing Assessment/Plan abdominal pain is improving afebrile s/o abdominal surgery abx per id no nausea improving Subjective Gastrointestinal/Abdominal: Reports: abdominal pain Allergies: Coded Allergies: No Known Allergies (Unverified , 07/17/12) Objective Last 24 Hour Vital Signs Date Time Temp Pulse Resp B/P (MAP) Pulse Ox O2 Delivery O2 Flow Rate FiO2 04/30/17 12:28 97.4 67 18 119/65 96 Room Air 04/30/17 08:00 98.1 67 20 114/67 96 Room Air 04/30/17 03:20 97.5 56 20 127/68 96 Room Air 04/29/17 23:33 97.6 56 20 130/69 96 Room Air 04/29/17 19:44 97.6 56 20 131/74 97 Room Air 04/29/17 17:08 97.3 80 18 118/65 98 Room Air Intake and Output 04/30/17 05/01/17 19:00 07:00 Intake Total 112.5 ml Balance 112.5 ml IV Total 112.5 ml Laboratory Tests 04/30/17 04:40: White Blood Count 11.6H, Red Blood Count 3.97L, Hemoglobin 11.7L, Hematocrit 34.6L, Mean Corpuscular Volume 87, Mean Corpuscular Hemoglobin 29.5, Mean Corpuscular Hemoglobin Concent 33.9, Red Cell Distribution Width 10.8L, Platelet Count 330, Mean Platelet Volume 6.6, Neutrophils (%) (Auto) 70.8, Lymphocytes (%) (Auto) 12.9L, Monocytes (%) (Auto) 10.4H, Eosinophils (%) (Auto ) 5.4H, Basophils (%) (Auto) 0.6, Sodium Level 137, Potassium Level 4.0, Chloride Level 100, Carbon Dioxide Level 31, Anion Gap 6, Blood Urea Nitrogen 9 , Creatinine 2.1H, Estimat Glomerular Filtration Rate 39.3, Glucose Level 96, Calcium Level 9.2 Height (Feet): 5 Height (Inches): 10.00 Weight (Pounds): 150 Abdomen: tender Radha Marquez MD Apr 30, 2017 15:02
[2017-04-30] MEDS: Docusate 100mg cap ORAL SCH (17:10)
--- NOTE | 2017-04-30 22:30 | Infectious Diseases Prog Note ---
Assessment/Plan Problems: (1) Sepsis Assessment & Plan: WBC still elevated but trending down slowly. Due to pelvic/intra-abdominal abscess. (2) Pelvic abscess Assessment & Plan: Continue with empiric Zosyn. Try to culture drain fluid. Now off vancomycin IV. Consider repeat CT if worse. (3) THEA (acute kidney injury) Assessment & Plan: Due to vancomycin? Sepsis? Cr still elevated. Subjective Allergies: Coded Allergies: No Known Allergies (Unverified , 07/17/12) Objective Vital Signs Last 24 Hour Vital Signs Date Time Temp Pulse Resp B/P (MAP) Pulse Ox O2 Delivery O2 Flow Rate FiO2 04/30/17 19:30 98.1 57 20 116/71 98 Room Air 04/30/17 16:00 97.6 69 18 121/62 98 Room Air 04/30/17 12:28 97.4 67 18 119/65 96 Room Air 04/30/17 08:00 98.1 67 20 114/67 96 Room Air 04/30/17 03:20 97.5 56 20 127/68 96 Room Air 04/29/17 23:33 97.6 56 20 130/69 96 Room Air Height (Feet): 5 Height (Inches): 10.00 Weight (Pounds): 150 Microbiology Date/Time Source Procedure Growth Status 04/28/17 06:15 Abdominal Fluid Gram Stain - Final Resulted 04/28/17 06:15 Abdominal Fluid Body Fluid Culture - Preliminary NO GROWTH AFTER 48 HOURS Resulted Laboratory Tests Test 04/30/17 04:40 04/30/17 04:50 White Blood Count 11.6 K/UL (4.8-10.8) H Red Blood Count 3.97 M/UL (4.70-6.10) L Hemoglobin 11.7 G/DL (14.2-18.0) L Hematocrit 34.6 % (42.0-52.0) L Mean Corpuscular Volume 87 FL (80-99) Mean Corpuscular Hemoglobin 29.5 PG (27.0-31.0) Mean Corpuscular Hemoglobin Concent 33.9 G/DL (32.0-36.0) Red Cell Distribution Width 10.8 % (11.6-14.8) L Platelet Count 330 K/UL (150-450) Mean Platelet Volume 6.6 FL (6.5-10.1) Neutrophils (%) (Auto) 70.8 % (45.0-75.0) Lymphocytes (%) (Auto) 12.9 % (20.0-45.0) L Monocytes (%) (Auto) 10.4 % (1.0-10.0) H Eosinophils (%) (Auto) 5.4 % (0.0-3.0) H Basophils (%) (Auto) 0.6 % (0.0-2.0) Sodium Level 137 MMOL/L (136-145) Potassium Level 4.0 MMOL/L (3.5-5.1) Chloride Level 100 MMOL/L (98-107) Carbon Dioxide Level 31 MMOL/L (21-32) Anion Gap 6 mmol/L (5-15) Blood Urea Nitrogen 9 mg/dL (7-18) Creatinine 2.1 MG/DL (0.55-1.30) H Estimat Glomerular Filtration Rate 39.3 mL/min (>60) Glucose Level 96 MG/DL (74-106) Calcium Level 9.2 MG/DL (8.5-10.1) Ferritin Pending Current Medications Medications (Trade) Dose Ordered Sig/Edwina Route PRN Reason Start Time Stop Time Status Last Admin Dose Admin Acetaminophen (Tylenol) 650 mg Q6H PRN ORAL Mild Pain/Temp > 100.5 04/30/17 12:45 05/30/17 12:44 Acetaminophen/ Hydrocodone Bitart ([place] 7.5/325) 1 ea Q4H PRN ORAL Severe Pain (Pain Scale 7-10) 04/30/17 12:30 05/07/17 12:29 Dextrose (Dextrose 50%) STAT PRN IV Hypoglycemia 04/22/17 07:45 05/22/17 07:44 Dextrose/Sodium Chloride 1,000 ml @ 100 mls/hr Q10H IV 04/30/17 11:15 05/30/17 11:14 04/30/17 21:09 Docusate Sodium (Colace) 100 mg TWICE A DAY ORAL 04/30/17 18:00 05/30/17 17:59 04/30/17 17:10 Lansoprazole (Prevacid) 30 mg DAILY ORAL 04/26/17 09:00 05/26/17 08:59 04/30/17 08:42 Nitroglycerin (Ntg) 0.4 mg Q5M X 3 DOSES PRN SL Prn Chest Pain 04/22/17 07:45 05/22/17 07:44 Ondansetron HCl (Zofran) 4 mg Q6H PRN IVP Nausea & Vomiting 04/22/17 07:45 05/22/17 07:44 04/28/17 22:40 Piperacillin/ Tazobactam/ Dextrose 50 ml @ 12.5 mls/hr EVERY 8 HOURS IVPB 04/27/17 22:00 05/02/17 17:59 04/30/17 21:09 ALEX OCHOA Apr 30, 2017 22:30
[2017-05-01] MEDS: D5NS 1,000 ML IV SCH ×2 (03:35→17:28)
[2017-05-01 03:41] VITALS: BP 117/69
[2017-05-01] MEDS: Zosyn 3.375gm q8h **Extended infusion IVPB SCH ×3 (05:04→21:51)
[2017-05-01 07:03] LABS: BASOPHILS % (AUTO) 0.9 % (0.0-2.0); EOSINOPHILS % (AUTO) 5.3 % (0.0-3.0); LYMPHOCYTES % (AUTO) 15.4 % (20.0-45.0); MEAN CORPUSCULAR HEMOGLOBIN 29.8 PG (27.0-31.0); MEAN CORPUSCULAR HGB CONC 34.5 G/DL (32.0-36.0); MEAN CORPUSCULAR VOLUME 86 FL (80-99); MEAN PLATELET VOLUME 6.4 FL (6.5-10.1); MONOCYTES % (AUTO) 10.4 % (1.0-10.0); PLATELET COUNT 343 K/UL (150-450); RED BLOOD COUNT 3.83 M/UL (4.70-6.10); RED CELL DISTRIBUTION WIDTH 10.8 % (11.6-14.8); WHITE BLOOD COUNT 10.8 K/UL (4.8-10.8)
[2017-05-01 07:09] LABS: ALANINE AMINOTRANSFERASE 34 U/L (12-78); ALBUMIN/GLOBULIN RATIO 0.5 (1.0-2.7); ANION GAP 8 mmol/L (5-15); ASPARTATE AMINO TRANSFERASE 28 U/L (15-37); CALCIUM 8.8 MG/DL (8.5-10.1); CARBON DIOXIDE 30 MMOL/L (21-32); CHLORIDE 102 MMOL/L (98-107); CREATININE 1.9 MG/DL (0.55-1.30); CRP QUANT 5.3 mg/dL (0.00-0.90); GLOMERULAR FILTRATION RATE 44.1 mL/min (>60); PHOSPHORUS 3.2 MG/DL (2.5-4.9); POTASSIUM 3.9 MMOL/L (3.5-5.1); SODIUM 140 MMOL/L (136-145); URIC ACID 2.5 MG/DL (2.6-7.2)
[2017-05-01 08:18] VITALS: BP 123/69
[2017-05-01] MEDS: Docusate 100mg cap ORAL SCH ×2 (08:21→17:28)
--- NOTE | 2017-05-01 09:31 | Consultation ---
DATE OF CONSULTATION: 04/30/2017 HEMATOLOGY/ONCOLOGY CONSULTATION CONSULTING PHYSICIAN: Francis Strauss M.D. REQUESTING PHYSICIAN: Radha Marquez M.D. REASON FOR CONSULTATION: Evaluation of anemia. IDENTIFICATION DATA: Dear Dr. Radha Marquez, The patient is a pleasant 21-year-old male with past medical history, which is significant for sepsis, history of pelvic fluid collection likely abscess, ileus versus SBO, status post recent appendectomy, presented about nine days ago to the hospital with nausea, vomiting, and fever and GI service consulted as well as Infectious Disease and Pulmonary team. The patient was doing fine. nausea, vomiting, and on the side is a possible open drainage and washout of intraabdominal abscess. Seen by Surgery today. The patient is much better, passing gas. No definitive abscess noted. Consent for pain and narcotic dependency, can be discharged home as per surgical team. PAST MEDICAL HISTORY: As noted above. MEDICATIONS: Keflex and Naproxen on admission. ALLERGIES: No known drug allergies. SOCIAL HISTORY: No alcohol, tobacco, or drug use. FAMILY HISTORY: Noncontributory. REVIEW OF SYSTEMS: A 12-point review of systems is otherwise negative. PHYSICAL EXAMINATION: GENERAL: The patient is in no acute distress. VITAL SIGNS: Reviewed. PULMONARY: Decreased breath sounds. CARDIOVASCULAR: Regular rate. No S3 or S4. ABDOMEN: Soft, nontender, and nondistended. EXTREMITIES: There is 1+ edema. LABORATORY DATA: Hemoglobin of 10.8, white count of 14,000; and platelet count . ASSESSMENT AND PLAN: 1. Anemia, secondary to chronic disease. Continue to closely monitor. Ferritin has been ordered. 2. Coagulopathy, likely secondary to involvement of the liver disease. 3. Abdomen and pelvis CT scan ordered on 04/03/2017 and thereafter on 04/21/2017, which has been reviewed as well as thickening of the small bowel loops noted. 4. Leukocytosis, likely secondary to reactive process versus infection. 5. Thrombocytosis, currently improved. 6. Status post appendectomy. 7. History of abscess in the abdomen, improved. No fluid collection. Not significant enough to be drained. I appreciate the consultation. Francis Strauss M.D. DR: POONAM JOB#: [id number] CC:
--- NOTE | 2017-05-01 12:30 | General Progress Note ---
Assessment/Plan Status: stable Status Narrative Cr lowering Assessment/Plan acute renal failure due to sepsis and antibiotics Plan: Stop IBUPROFEN No NSAIDS urine studies- Kidney RYANN negative for hydro increase IV fluid Per ID monitor renal parameters DC planning? Subjective ROS Limited/Unobtainable: No Allergies: Coded Allergies: No Known Allergies (Unverified , 07/17/12) Objective Last 24 Hour Vital Signs Date Time Temp Pulse Resp B/P (MAP) Pulse Ox O2 Delivery O2 Flow Rate FiO2 05/01/17 08:18 97.7 68 20 123/69 98 Room Air 05/01/17 03:41 97.5 61 20 117/69 98 Room Air 04/30/17 23:37 98.1 77 18 114/68 95 Nasal Cannula 3.5 04/30/17 23:25 97.5 58 20 113/69 98 Room Air 04/30/17 19:30 98.1 57 20 116/71 98 Room Air 04/30/17 16:00 97.6 69 18 121/62 98 Room Air 04/30/17 12:28 97.4 67 18 119/65 96 Room Air Laboratory Tests 05/01/17 05:30: White Blood Count 10.8, Red Blood Count 3.83L, Hemoglobin 11.4L, Hematocrit 33.1L, Mean Corpuscular Volume 86, Mean Corpuscular Hemoglobin 29.8, Mean Corpuscular Hemoglobin Concent 34.5, Red Cell Distribution Width 10.8L, Platelet Count 343, Mean Platelet Volume 6.4L, Neutrophils (%) (Auto) 68.0, Lymphocytes (%) (Auto) 15.4L, Monocytes (%) (Auto) 10.4H, Eosinophils (%) (Auto ) 5.3H, Basophils (%) (Auto) 0.9, Sodium Level 140, Potassium Level 3.9, Chloride Level 102, Carbon Dioxide Level 30, Anion Gap 8, Blood Urea Nitrogen 9 , Creatinine 1.9H, Estimat Glomerular Filtration Rate 44.1, Glucose Level 99, Uric Acid 2.5L, Calcium Level 8.8, Phosphorus Level 3.2, Magnesium Level 2.0, Total Bilirubin 0.5, Aspartate Amino Transf (AST/SGOT) 28, Alanine Aminotransferase (ALT/SGPT) 34, Alkaline Phosphatase 71, Total Creatine Kinase 47, C-Reactive Protein, Quantitative 5.3H, Total Protein 7.0, Albumin 2.4L, Globulin 4.6, Albumin/Globulin Ratio 0.5L Height (Feet): 5 Height (Inches): 10.00 Weight (Pounds): 150 General Appearance: no apparent distress Respiratory/Chest: lungs clear Abdomen: soft Objective PE not changed IRAIDA CONN May 01, 2017 12:30
[2017-05-01 12:31] VITALS: BP 129/74
--- NOTE | 2017-05-01 14:21 | GI Progress Note ---
Assessment/Plan Problems: (1) Sepsis ICD Codes: A41.9 - Sepsis, unspecified organism SNOMED: 29515922 (2) Colitis ICD Codes: K52.9 - Noninfective gastroenteritis and colitis, unspecified SNOMED: 78189992 (3) Pelvic abscess SNOMED: 190070666 Status: stable Status Narrative Discussed with Dr. Hernández. Assessment/Plan surgical recs >> s/p laparoscopic possible open drainage and washout of pelvic / intraabdominal abscess diet per surgery, regular abx pain mgmt fu labs Subjective Subjective tolerating regular diet Objective Last 24 Hour Vital Signs Date Time Temp Pulse Resp B/P (MAP) Pulse Ox O2 Delivery O2 Flow Rate FiO2 05/01/17 12:31 97.7 56 20 129/74 98 Room Air 05/01/17 08:18 97.7 68 20 123/69 98 Room Air 05/01/17 03:41 97.5 61 20 117/69 98 Room Air 04/30/17 23:37 98.1 77 18 114/68 95 Nasal Cannula 3.5 04/30/17 23:25 97.5 58 20 113/69 98 Room Air 04/30/17 19:30 98.1 57 20 116/71 98 Room Air 04/30/17 16:00 97.6 69 18 121/62 98 Room Air Intake and Output 05/01/17 05/02/17 19:00 07:00 Intake Total 360 ml Balance 360 ml Intake Oral 360 ml Laboratory Tests Test 05/01/17 05:30 White Blood Count 10.8 K/UL (4.8-10.8) Red Blood Count 3.83 M/UL (4.70-6.10) L Hemoglobin 11.4 G/DL (14.2-18.0) L Hematocrit 33.1 % (42.0-52.0) L Mean Corpuscular Volume 86 FL (80-99) Mean Corpuscular Hemoglobin 29.8 PG (27.0-31.0) Mean Corpuscular Hemoglobin Concent 34.5 G/DL (32.0-36.0) Red Cell Distribution Width 10.8 % (11.6-14.8) L Platelet Count 343 K/UL (150-450) Mean Platelet Volume 6.4 FL (6.5-10.1) L Neutrophils (%) (Auto) 68.0 % (45.0-75.0) Lymphocytes (%) (Auto) 15.4 % (20.0-45.0) L Monocytes (%) (Auto) 10.4 % (1.0-10.0) H Eosinophils (%) (Auto) 5.3 % (0.0-3.0) H Basophils (%) (Auto) 0.9 % (0.0-2.0) Sodium Level 140 MMOL/L (136-145) Potassium Level 3.9 MMOL/L (3.5-5.1) Chloride Level 102 MMOL/L (98-107) Carbon Dioxide Level 30 MMOL/L (21-32) Anion Gap 8 mmol/L (5-15) Blood Urea Nitrogen 9 mg/dL (7-18) Creatinine 1.9 MG/DL (0.55-1.30) H Estimat Glomerular Filtration Rate 44.1 mL/min (>60) Glucose Level 99 MG/DL (74-106) Uric Acid 2.5 MG/DL (2.6-7.2) L Calcium Level 8.8 MG/DL (8.5-10.1) Phosphorus Level 3.2 MG/DL (2.5-4.9) Magnesium Level 2.0 MG/DL (1.8-2.4) Total Bilirubin 0.5 MG/DL (0.2-1.0) Aspartate Amino Transf (AST/SGOT) 28 U/L (15-37) Alanine Aminotransferase (ALT/SGPT) 34 U/L (12-78) Alkaline Phosphatase 71 U/L (46-116) Total Creatine Kinase 47 U/L (26-308) C-Reactive Protein, Quantitative 5.3 mg/dL (0.00-0.90) H Total Protein 7.0 G/DL (6.4-8.2) Albumin 2.4 G/DL (3.4-5.0) L Globulin 4.6 g/dL Albumin/Globulin Ratio 0.5 (1.0-2.7) L Height (Feet): 5 Height (Inches): 10.00 Weight (Pounds): 150 General Appearance: WD/WN, no apparent distress, alert Cardiovascular: normal rate Respiratory/Chest: normal breath sounds, no respiratory distress Abdominal Exam: normal bowel sounds, non tender, soft Extremities: normal range of motion, non-tender Salma Winslow N.P. May 01, 2017 14:21
--- NOTE | 2017-05-01 15:02 | General Progress Note ---
Progress Note Progress Note Surgery: patient seen and examined at bedside. no acute events. doing well. much improved today. no n/v/f/c. tolerating oral diet. better liquid intake. passing flatus. had BM. Abdomen soft, nt/nd, bs+. incision c/d/i. lois removed at bedside and steristrips placed afebrile, HD stable, VSS, leukocytosis resolved. labs improved. Cr improving -d/c planning for tomorrow. -will d/c tomorrow if remains afebrile and normal wbc for >24hrs. Hans Hess May 01, 2017 15:02
[2017-05-01 16:02] VITALS: BP 105/64
--- NOTE | 2017-05-01 16:49 | Infectious Diseases Prog Note ---
Assessment/Plan Problems: (1) Sepsis Assessment & Plan: Resolved. Due to pelvic/intra-abdominal abscess. (2) Pelvic abscess Assessment & Plan: Finish with empiric Zosyn. Now afebrile with normal WBC for over 24 hours. Had over a week of Zosyn since drainage. OK to discharge off antibiotics. Return precaution discussed with patient and family at bedside. (3) THEA (acute kidney injury) Assessment & Plan: Improving. Subjective Allergies: Coded Allergies: No Known Allergies (Unverified , 07/17/12) Objective Vital Signs Last 24 Hour Vital Signs Date Time Temp Pulse Resp B/P (MAP) Pulse Ox O2 Delivery O2 Flow Rate FiO2 05/01/17 16:02 97.8 66 20 105/64 99 Room Air 05/01/17 12:31 97.7 56 20 129/74 98 Room Air 05/01/17 08:18 97.7 68 20 123/69 98 Room Air 05/01/17 03:41 97.5 61 20 117/69 98 Room Air 04/30/17 23:37 98.1 77 18 114/68 95 Nasal Cannula 3.5 04/30/17 23:25 97.5 58 20 113/69 98 Room Air 04/30/17 19:30 98.1 57 20 116/71 98 Room Air Height (Feet): 5 Height (Inches): 10.00 Weight (Pounds): 150 Laboratory Tests Test 05/01/17 05:30 White Blood Count 10.8 K/UL (4.8-10.8) Red Blood Count 3.83 M/UL (4.70-6.10) L Hemoglobin 11.4 G/DL (14.2-18.0) L Hematocrit 33.1 % (42.0-52.0) L Mean Corpuscular Volume 86 FL (80-99) Mean Corpuscular Hemoglobin 29.8 PG (27.0-31.0) Mean Corpuscular Hemoglobin Concent 34.5 G/DL (32.0-36.0) Red Cell Distribution Width 10.8 % (11.6-14.8) L Platelet Count 343 K/UL (150-450) Mean Platelet Volume 6.4 FL (6.5-10.1) L Neutrophils (%) (Auto) 68.0 % (45.0-75.0) Lymphocytes (%) (Auto) 15.4 % (20.0-45.0) L Monocytes (%) (Auto) 10.4 % (1.0-10.0) H Eosinophils (%) (Auto) 5.3 % (0.0-3.0) H Basophils (%) (Auto) 0.9 % (0.0-2.0) Sodium Level 140 MMOL/L (136-145) Potassium Level 3.9 MMOL/L (3.5-5.1) Chloride Level 102 MMOL/L (98-107) Carbon Dioxide Level 30 MMOL/L (21-32) Anion Gap 8 mmol/L (5-15) Blood Urea Nitrogen 9 mg/dL (7-18) Creatinine 1.9 MG/DL (0.55-1.30) H Estimat Glomerular Filtration Rate 44.1 mL/min (>60) Glucose Level 99 MG/DL (74-106) Uric Acid 2.5 MG/DL (2.6-7.2) L Calcium Level 8.8 MG/DL (8.5-10.1) Phosphorus Level 3.2 MG/DL (2.5-4.9) Magnesium Level 2.0 MG/DL (1.8-2.4) Total Bilirubin 0.5 MG/DL (0.2-1.0) Aspartate Amino Transf (AST/SGOT) 28 U/L (15-37) Alanine Aminotransferase (ALT/SGPT) 34 U/L (12-78) Alkaline Phosphatase 71 U/L (46-116) Total Creatine Kinase 47 U/L (26-308) C-Reactive Protein, Quantitative 5.3 mg/dL (0.00-0.90) H Total Protein 7.0 G/DL (6.4-8.2) Albumin 2.4 G/DL (3.4-5.0) L Globulin 4.6 g/dL Albumin/Globulin Ratio 0.5 (1.0-2.7) L Current Medications Medications (Trade) Dose Ordered Sig/Edwina Route PRN Reason Start Time Stop Time Status Last Admin Dose Admin Acetaminophen (Tylenol) 650 mg Q6H PRN ORAL Mild Pain/Temp > 100.5 04/30/17 12:45 05/30/17 12:44 Acetaminophen/ Hydrocodone Bitart ([place] 7.5/325) 1 ea Q4H PRN ORAL Severe Pain (Pain Scale 7-10) 04/30/17 12:30 05/07/17 12:29 Dextrose (Dextrose 50%) STAT PRN IV Hypoglycemia 04/22/17 07:45 05/22/17 07:44 Dextrose/Sodium Chloride 1,000 ml @ 100 mls/hr Q10H IV 04/30/17 11:15 05/30/17 11:14 05/01/17 03:35 Docusate Sodium (Colace) 100 mg TWICE A DAY ORAL 04/30/17 18:00 05/30/17 17:59 05/01/17 08:21 Lansoprazole (Prevacid) 30 mg DAILY ORAL 04/26/17 09:00 05/26/17 08:59 05/01/17 08:21 Nitroglycerin (Ntg) 0.4 mg Q5M X 3 DOSES PRN SL Prn Chest Pain 04/22/17 07:45 05/22/17 07:44 Ondansetron HCl (Zofran) 4 mg Q6H PRN IVP Nausea & Vomiting 04/22/17 07:45 05/22/17 07:44 04/28/17 22:40 Piperacillin/ Tazobactam/ Dextrose 50 ml @ 12.5 mls/hr EVERY 8 HOURS IVPB 04/27/17 22:00 05/02/17 17:59 05/01/17 15:13 ALEX OCHOA May 01, 2017 16:49
[2017-05-01 20:00] VITALS: BP 115/62
--- NOTE | 2017-05-01 20:35 | General Progress Note ---
Assessment/Plan Problem List: (1) Pelvic abscess SNOMED: 375220881 (2) Sepsis ICD Codes: A41.9 - Sepsis, unspecified organism SNOMED: 04645866 (3) Colitis ICD Codes: K52.9 - Noninfective gastroenteritis and colitis, unspecified SNOMED: 00761086 (4) UTI (urinary tract infection) ICD Codes: N39.0 - Urinary tract infection, site not specified SNOMED: 02270247 (5) Fever ICD Codes: R50.9 - Fever, unspecified SNOMED: 235142995 Status: progressing Assessment/Plan complication post op azotemia surgeon wants to wait another day before dc Subjective ROS Limited/Unobtainable: Yes Constitutional: Reports: no symptoms Allergies: Coded Allergies: No Known Allergies (Unverified , 07/17/12) Objective Last 24 Hour Vital Signs Date Time Temp Pulse Resp B/P (MAP) Pulse Ox O2 Delivery O2 Flow Rate FiO2 05/01/17 16:02 97.8 66 20 105/64 99 Room Air 05/01/17 12:31 97.7 56 20 129/74 98 Room Air 05/01/17 08:18 97.7 68 20 123/69 98 Room Air 05/01/17 03:41 97.5 61 20 117/69 98 Room Air 04/30/17 23:37 98.1 77 18 114/68 95 Nasal Cannula 3.5 04/30/17 23:25 97.5 58 20 113/69 98 Room Air Intake and Output 05/01/17 05/02/17 19:00 07:00 Intake Total 1437.5 ml Balance 1437.5 ml Intake Oral 600 ml IV Total 837.5 ml Laboratory Tests 05/01/17 05:30: White Blood Count 10.8, Red Blood Count 3.83L, Hemoglobin 11.4L, Hematocrit 33.1L, Mean Corpuscular Volume 86, Mean Corpuscular Hemoglobin 29.8, Mean Corpuscular Hemoglobin Concent 34.5, Red Cell Distribution Width 10.8L, Platelet Count 343, Mean Platelet Volume 6.4L, Neutrophils (%) (Auto) 68.0, Lymphocytes (%) (Auto) 15.4L, Monocytes (%) (Auto) 10.4H, Eosinophils (%) (Auto ) 5.3H, Basophils (%) (Auto) 0.9, Sodium Level 140, Potassium Level 3.9, Chloride Level 102, Carbon Dioxide Level 30, Anion Gap 8, Blood Urea Nitrogen 9 , Creatinine 1.9H, Estimat Glomerular Filtration Rate 44.1, Glucose Level 99, Uric Acid 2.5L, Calcium Level 8.8, Phosphorus Level 3.2, Magnesium Level 2.0, Total Bilirubin 0.5, Aspartate Amino Transf (AST/SGOT) 28, Alanine Aminotransferase (ALT/SGPT) 34, Alkaline Phosphatase 71, Total Creatine Kinase 47, C-Reactive Protein, Quantitative 5.3H, Total Protein 7.0, Albumin 2.4L, Globulin 4.6, Albumin/Globulin Ratio 0.5L Height (Feet): 5 Height (Inches): 10.00 Weight (Pounds): 150 Respiratory/Chest: lungs clear Radha Marquez MD May 01, 2017 20:35
--- NOTE | 2017-05-01 21:33 | General Progress Note ---
Assessment/Plan Assessment/Plan ASSESSMENT AND PLAN: 1. Anemia, secondary to chronic disease. Ferritin is elevated. --> HH currently improving 2. Coagulopathy, likely secondary to involvement of the liver disease. 3. Leukocytosis, likely secondary to abscess. Has now normalized. 5. Thrombocytosis, currently improved. 6. Status post appendectomy. 7. History of abscess in the abdomen, improved. No fluid collection. Not significant enough to be drained. Subjective Constitutional: Reports: no symptoms HEENT: Reports: no symptoms Cardiovascular: Reports: no symptoms Respiratory: Reports: no symptoms Genitourinary: Reports: no symptoms Neurologic/Psychiatric: Reports: no symptoms Endocrine: Reports: no symptoms Hematologic/Lymphatic: Reports: no symptoms Allergies: Coded Allergies: No Known Allergies (Unverified , 07/17/12) Subjective feeling better Objective Last 24 Hour Vital Signs Date Time Temp Pulse Resp B/P (MAP) Pulse Ox O2 Delivery O2 Flow Rate FiO2 05/01/17 20:00 98.0 71 18 115/62 98 Room Air 05/01/17 16:02 97.8 66 20 105/64 99 Room Air 05/01/17 12:31 97.7 56 20 129/74 98 Room Air 05/01/17 08:18 97.7 68 20 123/69 98 Room Air 05/01/17 03:41 97.5 61 20 117/69 98 Room Air 04/30/17 23:37 98.1 77 18 114/68 95 Nasal Cannula 3.5 04/30/17 23:25 97.5 58 20 113/69 98 Room Air Intake and Output 05/01/17 05/02/17 19:00 07:00 Intake Total 1437.5 ml Balance 1437.5 ml Intake Oral 600 ml IV Total 837.5 ml Laboratory Tests 05/01/17 05:30: White Blood Count 10.8, Red Blood Count 3.83L, Hemoglobin 11.4L, Hematocrit 33.1L, Mean Corpuscular Volume 86, Mean Corpuscular Hemoglobin 29.8, Mean Corpuscular Hemoglobin Concent 34.5, Red Cell Distribution Width 10.8L, Platelet Count 343, Mean Platelet Volume 6.4L, Neutrophils (%) (Auto) 68.0, Lymphocytes (%) (Auto) 15.4L, Monocytes (%) (Auto) 10.4H, Eosinophils (%) (Auto ) 5.3H, Basophils (%) (Auto) 0.9, Sodium Level 140, Potassium Level 3.9, Chloride Level 102, Carbon Dioxide Level 30, Anion Gap 8, Blood Urea Nitrogen 9 , Creatinine 1.9H, Estimat Glomerular Filtration Rate 44.1, Glucose Level 99, Uric Acid 2.5L, Calcium Level 8.8, Phosphorus Level 3.2, Magnesium Level 2.0, Total Bilirubin 0.5, Aspartate Amino Transf (AST/SGOT) 28, Alanine Aminotransferase (ALT/SGPT) 34, Alkaline Phosphatase 71, Total Creatine Kinase 47, C-Reactive Protein, Quantitative 5.3H, Total Protein 7.0, Albumin 2.4L, Globulin 4.6, Albumin/Globulin Ratio 0.5L Height (Feet): 5 Height (Inches): 10.00 Weight (Pounds): 150 General Appearance: no apparent distress EENT: normal ENT inspection Cardiovascular: normal peripheral pulses Respiratory/Chest: lungs clear Skin: normal pigmentation, warm/dry Francis Strauss May 01, 2017 21:33
[2017-05-02] VITALS: BP 122/74
[2017-05-02 04:00] VITALS: BP 129/69
[2017-05-02] MEDS: D5NS 1,000 ML IV SCH ×2 (05:04→13:15)
[2017-05-02] MEDS: Zosyn 3.375gm q8h **Extended infusion IVPB SCH ×2 (05:48→14:00)
--- NOTE | 2017-05-02 08:00 | General Progress Note ---
Progress Note Progress Note Surgery: doing well. no acute events. comfortable. no n/v/f/c. passing flatus. +BM. pain improved. ambulatory. afebrile, HD stable, VSS, exam benign. abdomen soft, nt/nd, BS+, incision c/d/i. s/p lap appy complicated by pelvic intraabdominal abscess 2 weeks post op which required lap converted to open drainage and washout. recovering. -okay to d/c home today -rx as written -follow up with me next sunday as scheduled. Hans Hess May 02, 2017 08:00
[2017-05-02 08:36] VITALS: BP 120/64
[2017-05-02] MEDS: Docusate 100mg cap ORAL SCH (09:00)
[2017-05-02 10:14] LABS: BASOPHILS % (AUTO) 0.8 % (0.0-2.0); EOSINOPHILS % (AUTO) 5.6 % (0.0-3.0); LYMPHOCYTES % (AUTO) 14.7 % (20.0-45.0); MEAN CORPUSCULAR HEMOGLOBIN 28.1 PG (27.0-31.0); MEAN CORPUSCULAR HGB CONC 32.4 G/DL (32.0-36.0); MEAN CORPUSCULAR VOLUME 87 FL (80-99); MEAN PLATELET VOLUME 6.1 FL (6.5-10.1); MONOCYTES % (AUTO) 7.7 % (1.0-10.0); NEUTROPHILS % (AUTO) 71.2 % (45.0-75.0); PLATELET COUNT 360 K/UL (150-450); RED BLOOD COUNT 4.14 M/UL (4.70-6.10); WHITE BLOOD COUNT 9.5 K/UL (4.8-10.8)
[2017-05-02 10:27] LABS: ANION GAP 9 mmol/L (5-15); CALCIUM 9.1 MG/DL (8.5-10.1); CARBON DIOXIDE 29 MMOL/L (21-32); CHLORIDE 102 MMOL/L (98-107); CREATININE 1.7 MG/DL (0.55-1.30); GLOMERULAR FILTRATION RATE 50.2 mL/min (>60); POTASSIUM 3.8 MMOL/L (3.5-5.1); SODIUM 140 MMOL/L (136-145)
--- NOTE | 2017-05-02 11:33 | General Progress Note ---
Assessment/Plan Status: stable Status Narrative Cr 1.7 Assessment/Plan acute renal failure due to sepsis and antibiotics Plan: Stop IBUPROFEN No NSAIDS urine studies- Kidney RYANN negative for hydro increase IV fluid Per ID monitor renal parameters DC planning? Subjective ROS Limited/Unobtainable: No Allergies: Coded Allergies: No Known Allergies (Unverified , 07/17/12) Objective Last 24 Hour Vital Signs Date Time Temp Pulse Resp B/P (MAP) Pulse Ox O2 Delivery O2 Flow Rate FiO2 05/02/17 08:36 97.9 57 20 120/64 98 Room Air 05/02/17 04:00 97.2 62 20 129/69 97 Room Air 05/02/17 00:00 97.8 68 18 122/74 99 Room Air 05/01/17 20:00 98.0 71 18 115/62 98 Room Air 05/01/17 16:02 97.8 66 20 105/64 99 Room Air 05/01/17 12:31 97.7 56 20 129/74 98 Room Air Intake and Output 05/02/17 05/03/17 19:00 07:00 Intake Total 120 ml Output Total 300 ml Balance -180 ml Intake Oral 120 ml Output Urine Total 300 ml Laboratory Tests 05/02/17 09:50: White Blood Count 9.5, Red Blood Count 4.14L, Hemoglobin 11.6L, Hematocrit 36.0L , Mean Corpuscular Volume 87, Mean Corpuscular Hemoglobin 28.1, Mean Corpuscular Hemoglobin Concent 32.4, Red Cell Distribution Width 11.0L, Platelet Count 360, Mean Platelet Volume 6.1L, Neutrophils (%) (Auto) 71.2, Lymphocytes (%) (Auto) 14.7L, Monocytes (%) (Auto) 7.7, Eosinophils (%) (Auto) 5.6H, Basophils (%) (Auto) 0.8, Sodium Level 140, Potassium Level 3.8, Chloride Level 102, Carbon Dioxide Level 29, Anion Gap 9, Blood Urea Nitrogen 11, Creatinine 1.7H, Estimat Glomerular Filtration Rate 50.2, Glucose Level 121H, Calcium Level 9.1 Height (Feet): 5 Height (Inches): 10.00 Weight (Pounds): 150 General Appearance: no apparent distress Objective PE not changed IRAIDA CONN May 02, 2017 11:33
--- NOTE | 2017-05-02 11:35 | GI Progress Note ---
Assessment/Plan Problems: (1) Sepsis ICD Codes: A41.9 - Sepsis, unspecified organism SNOMED: 60106533 (2) Colitis ICD Codes: K52.9 - Noninfective gastroenteritis and colitis, unspecified SNOMED: 86176324 (3) Pelvic abscess SNOMED: 278892786 Status: stable Status Narrative Discussed with Dr. Hernández. Assessment/Plan surgical recs >> s/p laparoscopic possible open drainage and washout of pelvic / intraabdominal abscess diet per surgery, regular abx pain mgmt fu labs Subjective Subjective tolerating regular diet Objective Last 24 Hour Vital Signs Date Time Temp Pulse Resp B/P (MAP) Pulse Ox O2 Delivery O2 Flow Rate FiO2 05/02/17 08:36 97.9 57 20 120/64 98 Room Air 05/02/17 04:00 97.2 62 20 129/69 97 Room Air 05/02/17 00:00 97.8 68 18 122/74 99 Room Air 05/01/17 20:00 98.0 71 18 115/62 98 Room Air 05/01/17 16:02 97.8 66 20 105/64 99 Room Air 05/01/17 12:31 97.7 56 20 129/74 98 Room Air Intake and Output 05/02/17 05/03/17 19:00 07:00 Intake Total 120 ml Output Total 300 ml Balance -180 ml Intake Oral 120 ml Output Urine Total 300 ml Laboratory Tests Test 05/02/17 09:50 White Blood Count 9.5 K/UL (4.8-10.8) Red Blood Count 4.14 M/UL (4.70-6.10) L Hemoglobin 11.6 G/DL (14.2-18.0) L Hematocrit 36.0 % (42.0-52.0) L Mean Corpuscular Volume 87 FL (80-99) Mean Corpuscular Hemoglobin 28.1 PG (27.0-31.0) Mean Corpuscular Hemoglobin Concent 32.4 G/DL (32.0-36.0) Red Cell Distribution Width 11.0 % (11.6-14.8) L Platelet Count 360 K/UL (150-450) Mean Platelet Volume 6.1 FL (6.5-10.1) L Neutrophils (%) (Auto) 71.2 % (45.0-75.0) Lymphocytes (%) (Auto) 14.7 % (20.0-45.0) L Monocytes (%) (Auto) 7.7 % (1.0-10.0) Eosinophils (%) (Auto) 5.6 % (0.0-3.0) H Basophils (%) (Auto) 0.8 % (0.0-2.0) Sodium Level 140 MMOL/L (136-145) Potassium Level 3.8 MMOL/L (3.5-5.1) Chloride Level 102 MMOL/L (98-107) Carbon Dioxide Level 29 MMOL/L (21-32) Anion Gap 9 mmol/L (5-15) Blood Urea Nitrogen 11 mg/dL (7-18) Creatinine 1.7 MG/DL (0.55-1.30) H Estimat Glomerular Filtration Rate 50.2 mL/min (>60) Glucose Level 121 MG/DL (74-106) H Calcium Level 9.1 MG/DL (8.5-10.1) Height (Feet): 5 Height (Inches): 10.00 Weight (Pounds): 150 General Appearance: WD/WN, no apparent distress, alert Cardiovascular: normal rate Respiratory/Chest: normal breath sounds, no respiratory distress Abdominal Exam: normal bowel sounds, non tender, soft Extremities: normal range of motion, non-tender Salma Winslow N.P. May 02, 2017 11:35
[2017-05-02 12:44] VITALS: BP 131/78
[2017-05-02] MEDS ORDERED: NORCO 5-325 TA1 EAC1 ORAL (15:55)
[2017-05-02] MEDS ORDERED: SENNA-S TABLET1 EACH PO (15:57)
[2017-05-02] MEDS ORDERED: CIPRO500 MG PO (15:58)
[2017-05-02] MEDS ORDERED: METRONIDAZOLE500 MG ORAL (15:58)
[2017-05-02 16:00] VITALS: BP 111/54
[2017-05-02] MEDS ORDERED: D5NS 1000ml IV ONE (16:06)
--- NOTE | 2017-05-04 11:49 | Discharge Summary ---
Discharge Summary Hospital Course Date of Admission Apr 21, 2017 at 20:00 Date of Discharge May 02, 2017 at 16:07 Admitting Diagnosis COLITIS HPI Shayan Mtz is a 21 year old male who was admitted on Apr 21, 2017 at 20: 00 for Colitis Hospital Course [id number] Discharge Discharge Disposition Patient was discharged to Home (01) Discharge Diagnoses: Edilma Barba NP May 04, 2017 11:49
--- NOTE | 2017-05-05 07:31 | Discharge Summary 2 SIG ---
DATE OF ADMISSION: 04/21/2017 DATE OF DISCHARGE: 05/02/2017 CONSULTS: 1. Hans Hess M.D. 2. Hernando Horowitz M.D. 3. Titus Hernández M.D. 4. Francis Strauss M.D. BRIEF HOSPITAL COURSE: The patient is a 21-year-old male, status post laparoscopic appendectomy two weeks prior to admission, presented to ED complaining of two to three days of worsening lower abdominal pain. He was reportedly doing well after surgery, however, developed vomiting, diarrhea and cramping pain. There was no hematemesis, hematochezia, or melena noted. On evaluation at ED, he was febrile and blood work showed leukocytosis. CT of the abdomen and pelvis showed fluid collection in the central lower pelvis suspicious for abscess. Surgical evaluation was done, who recommended IR drainage of the abscess. The patient was placed on NPO and was started on IV vancomycin and Zosyn. The patient underwent CT of the pelvis, however, drainage of the pelvic abscess was not performed due to lack of definitive safe access track. On 04/24/2017, the patient underwent a laparoscopic converted to open drainage of the pelvic intraabdominal abscess. Abdominal pain improved, however, renal function worsened. Vancomycin was discontinued and he was given Zosyn. The patient's diet was slowly advanced. He continued to have persistent leukocytosis and anemia workup showed anemia secondary to chronic disease as ferritin was elevated. Renal ultrasound done showed increased renal echogenicity, negative for hydronephrosis. Gram stain of the body fluid did not isolate any growth. Blood culture with no growth. Ibuprofen and NSAIDs were discontinued. Diet was advanced. The patient had been afebrile. Leukocytosis resolved. He was eventually discharged home. FINAL DIAGNOSES: 1. Sepsis. 2. Pelvic intraabdominal abscess, status post recent laparoscopic appendectomy two weeks ago. 3. Status post laparoscopic converted to open drainage of pelvic intra-abdominal abscess on 04/24/2017. 4. Acute renal failure due to sepsis and antibiotics. 5. Anemia secondary to chronic disease. DISPOSITION: The patient was discharged home. DISCHARGE MEDICATIONS: Refer to medication list. FOLLOWUP: The patient to follow up with Dr. Hess on 05/08/2017. Radha Marquez M.D. I have been assigned to dictate discharge summary on this account and I was not involved in the patient's management. Edilma Barba N.P. DR: Michael JOB#: [id number] CC: [email or web address]
== END 2017-05-02 16:07 | disposition home or self-care (01) | DRG 711 ==
LOC: EMR 17:24 → 4W 20:00 → EDBEDREQ 21:40 → 4W 04-22 16:40
DX: T81.4XXA Infection following a procedure, initial encounter (principal); K65.1 Peritoneal abscess; N17.9 Acute kidney failure, unspecified; A41.9 Sepsis, unspecified organism; K52.9 Noninfective gastroenteritis and colitis, unspecified; R11.2 Nausea with vomiting, unspecified; D64.9 Anemia, unspecified; D68.9 Coagulation defect, unspecified; D47.3 Essential (hemorrhagic) thrombocythemia; N39.0 Urinary tract infection, site not specified; Z53.31 Laparoscopic surgical procedure converted to open procedure
CPT/HCPCS: 36415; 72192; 74177; 76775; 80048; 80053; 80076; 80202; 81003; 82150; 82550; 82728; 82977; 83690; 83735; 83880; 84100; 84300; 84550; 85025; 85610; 85730; 86140; 86850; 86900; 86901; 87040; 87070; 87081; 87205; 89050; 94003; 94150; 99285; J2405; J2710